=== PATIENT | female | born 2000 | race African-American/Black ===

== ENCOUNTER 2024-04-30 10:23 | Outpatient (OUT) | payer MEDICAID, SELFPAY ==
--- NOTE | 2024-04-30 | US_ITS ---
[address] [address] Patient Name: NETO SCHAEFFER MRN: [id number] date: 2000 Sex: F Assigned Patient Location: [facility] Current Patient Location: Accession/Order Number: [id number] Exam Date: 04/30/2024 10:27 Report Date: 05/01/2024 05:22 At the request of: ROXANNA SMITH Procedure: US OB transvaginal EXAMINATION: US OB transvaginal HISTORY: MISSED MENSES COMPARISON: No relevant comparison available. FINDINGS: GESTATIONAL SAC: Present and normal appearing. YOLK SAC: Present and normal appearing. POLE: Present and normal appearing. CARDIAC: Present. UTERUS: Normal size and appearance. OVARIES: Right: Corpus lutein cyst. Left: Normal. CERVIX: 3.9 cm in length and closed. CUL-DE-SAC: Normal. OTHER: None. AGE BY LMP: 9 weeks 3 days DELLA BY LMP: 11/30/2024 AGE BY US CRL: 6 weeks 3 days DELLA BY US CRL: 12/21/2024 US/US OB transvaginal IMPRESSION: 1. Single live intrauterine . Electronically authenticated by: JACKIE ARCINIEGA Date: 05/01/2024 05:22
== END 2024-04-30 10:24 | disposition home or self-care (01) ==
LOC: NOMS 10:23
PROVIDERS: Visit Provider Obstetrics & Gynecology
DX: Z34.91 Encounter for supervision of normal pregnancy, unspecified, first trimester (principal); Z3A.09 9 weeks gestation of pregnancy; N92.6 Irregular menstruation, unspecified
CPT/HCPCS: 76817

== ENCOUNTER 2024-07-02 11:20 | Outpatient (OUT) | payer MEDICAID, SELFPAY ==
--- OUTSIDE RECORDS SUMMARY | 2024-07-02 11:45 | XMS_ITS | CCD ---
Author Organization [facility] Care Team Providers Care Shipping Specialist Name Role Phone ENRICO SERRANO Admitting Unavailable KARASIK, ENRICO Attending Unavailable REQUEST, NONE LISTED Primary Care Unavailable KARASIK, ENRICO Consulting Unavailable JULIAN GARCES Consulting Unavailable KARASIK, ENRICO Admitting Unavailable KARASIK, ENRICO Attending Unavailable KARASIK, ENRICO Consulting Unavailable PA, ROXANNA Admitting Unavailable PA, ROXANNA Attending Unavailable PA, ROXANNA Consulting Unavailable KARASIK, ENRICO Admitting Unavailable KARASIK, ENRICO Attending Unavailable KARASIK, ENRICO Consulting Unavailable KARASIK, ENRICO Admitting Unavailable KARASIK, ENRICO Attending Unavailable PA, ROXANNA Admitting Unavailable PA, ROXANNA Attending Unavailable PA, ROXANNA Consulting Unavailable DAXA REYNA Consulting Unavailable OSVALDO, OSMANI Wall Consulting Unavailable PA, ROXANNA Procedure Practitioner Unavailab le OSVALDO, OSMANI L Procedure Practitioner Unavailab DIANNE Aguayo Consulting Unavailable Unavailable Primary Care Provider Unavailabl e PA, ROXANNA Attending Unavailable PA, ROXANNA R Referring Unavailable NO PCP, NO PCP Primary Care Unavailable PA, ROXANNA R Referring Unavailable NO PCP, NO PCP Primary Care Unavailable Medications Current Medications Medication Drug Class(es) Dates Sig (Normalized) Sig (Original) Vit w/Zf-Xhkexoevj-HR (PNV PO) (5 sources) Vit w/Vr-Nibaebbmp-ZP (PNV PO) Take by mouth Active Problems Active Problems Problem Classification Problem Date Documented Date Episodic/Chronic Immunizations and screening for infectious disease (1 source) Encounter for screening for infections with a predominantly sexual mode of transmission; Translations: [ENC SCREEN INFECTIONS SEXL TRANSMS] Onset: 03-21-2019 Episodic Menstrual disorders (2 sources) Missed period; Translations: [Irregular menstruation, unspecified] Onset: 05-01-2024 04-30-2024 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 source) Second degree perineal laceration during delivery; Translations: [SECOND DEG PERINEAL LAC DUR DELIV] Onset: 04-17-2019 Episodic Other complications of ; puerperium affecting management of mother (1 source) Labor and delivery complicated by meconium in amniotic fluid; Translations: [LABOR AND DEL COMP MEC AMNIOTIC FLUID] Onset: 04-17-2019 Episodic Other complications of (2 sources) Supervision of young primigravida, third trimester; Translations: [SUP YOUNG PRIMIGRAVIDA THIRD TRI] Onset: 04-09-2019 Episodic Other and delivery including normal (12 sources) Encounter for supervision of normal , unspecified, second trimester; Translations: [Single live ] Onset: 12-19-2018 04-30-2024 Episodic Other screening for suspected conditions (not mental disorders or infectious disease) (5 sources) Encounter for screening, unspecified; Translations: [Encounter for screening for Streptococcus B] Onset: 12-28-2018 Residual codes; unclassified (1 source) Gestation period, 6 weeks; Translations: [Less than 8 weeks gestation of ] 04-30-2024 Episodic Residual codes; unclassified (4 sources) Gestation period, 10 weeks; Translations: [10 weeks gestation of ] Onset: 05-31-2024 05-31-2024 Episodic Residual codes; unclassified (1 source) 39 weeks gestation of ; Translations: [39 WEEKS GESTATION OF ] Onset: 04-17-2019 Unclassified (3 sources) OB Reminders Onset: 05-01-2024 05-01-2024 Past or Other Problems Problem Classification Problem Date Documented Da te Episodic/Chronic Other complications of (4 sources) Supervision of high risk , unspecified, first trimester; Translations: [SUP HIGH RISK UNS 1ST TRI] Onset: 12-20-2018 Episodic Other complications of (4 sources) Supervision of other high risk pregnancies, unspecified trimester; Translations: [SUP OTH HIGH RISK UNS TRI] Onset: 12-21-2018 Episodic Results Test Name Value Interpretation Reference Range Facility Urinalysis macro (dipstick) panel (U)on 05-31-2024 Bilirubin, UA Negative Negative - 4(70) +++ mg/dL [facility] Blood, UA Negative Negative - 50 Balbir/mcL [facility] Clarity, UA Clear [facility] Health[facility] re Color, UA Yellow [facility] Glucose, UA Positive Negative - 1999(110) ++++ mg/dL [facility] Comment on above: 100 Interpretation and review of laboratory results Abnormal [facility] Ketones, UA Negative Negative - 160(16) ++++ mg/dL [facility] Leukocytes, UA Negative Negative - 500+++ Osbaldo/mcL [facility] Nitrite, UA Negative Negative - Positive [facility] pH, UA 7 5 - 9 [facility] Protein, UA Negative Negative - 1999(20) ++++ mg/dL [facility] Spec Grav, UA 1.015 1 - 1.03 [facility] Urobilinogen, UA 0.2 0.2 - 12 mg/dL [facility] CBC AND AUTO DIFFon 05-01-20 24 ABSOLUTE BASOPHIL 0.0 X10E9/L Normal 0.0-0.2 [facility] Comment on above: Performed By: #### C ALIDA, HA1C, 8014-3, 91831-3, 77870-9, 03549-5, 5196-1 #### [facility] ([id number]) [address], [address] [place] [address] ABSOLUTE NEUTROPHIL 4.8 X10E9/L Normal 1.5-6.6 [facility] Comment on above: Performed By: #### C ALIDA, HA1C, 8014-3, 90155-4, 28461-2, 86083-9, 5196-1 #### [facility] ([id number]) [address], [address] [place] [address] Basophils/100 WBC (Bld) 0.4 % Normal [facility] Comment on above: Performed By: #### C ALIDA, HA1C, 8014-3, 31647-3, 14908-6, 37886-2, 5196-1 #### [facility] ([id number]) [address], [address] [place] [address] Eosinophils (Bld) [#/Vol] 0.1 10*3/uL Normal 0.0-0.4 [facility] Comment on above: Performed By: #### C ALIDA, HA1C, 8014-3, 10306-9, 07820-2, 11292-3, 5196-1 #### [facility] ([id number]) [address] [address] [place] [address] Eosinophils/100 WBC (Bld) 1.2 % Normal [facility] Comment on above: Performed By: #### C ALIDA, JENNIFER1C, 8014-3, 06324-6, 22726-2, 42289-2, 5196-1 #### [facility] ([id number]) [address] [address] Erythrocyte distribution width (RBC) [Ratio] 14.1 % Normal 11.5-15.0 [facility] Comment on above: Performed By: #### C ALIDA, HA1C, 8014-3, 48576-0, 29641-7, 60848-9, 5196-1 #### [facility] ([id number]) [address] [address] Hematocrit (Bld) [Volume fraction] 37.2 % Normal 35-47 [facility] Comment on above: Performed By: #### C ALIDA, HA1C, 8014-3, 74021-8, 84469-9, 16981-8, 5196-1 #### [facility] ([id number]) [address] [address] [place] [address] Hemoglobin (Bld) [Mass/Vol] 12.6 g/dL Normal 11.7-15.5 [facility] Comment on above: Performed By: #### C ALIDA, HA1C, 8014-3, 15249-2, 92594-2, 92208-2, 5196-1 #### [facility] ([id number]) [address], [address] [place] [address] Lymphocytes (Bld) [#/Vol] 1.5 10*3/uL Normal 1.0-3.5 [facility] Comment on above: Performed By: #### C ALIDA, HA1C, 8014-3, 08402-8, 97164-4, 07887-1, 5196-1 #### [facility] ([id number]) [address], [address] [place] [address] Lymphocytes/100 WBC (Bld) 21.4 % Normal [facility] Comment on above: Performed By: #### C ALIDA, HA1C, 8014-3, 51429-4, 72876-2, 78859-0, 5196-1 #### [facility] ([id number]) [address], [address] [place] [address] MCH (RBC) [Entitic mass] 30.2 pg Normal 27-34 [facility] Comment on above: Performed By: #### C ALIDA, HA1C, 8014-3, 63547-0, 86285-9, 69495-2, 5196-1 #### [facility] ([id number]) [address], [address] [place] [address] MCHC (RBC) [Mass/Vol] 33.9 g/dL Normal 32-36 [facility] Comment on above: Performed By: #### Tatiana IRWIN, HA1C, 8014-3, 12919-3, 06452-9, 15814-3, 5196-1 #### [facility] ([id number]) [address], [address] [place] [address] MCV (RBC) [Entitic vol] 89 fL Normal 80-100 [facility] Comment on above: Performed By: #### Tatiana IRWIN, HA1C, 8014-3, 86960-5, 37687-4, 21721-3, 5196-1 #### [facility] ([id number]) [address], [address] [place] [address] Monocytes (Bld) [#/Vol] 0.6 10*3/uL Normal 0-0.9 [facility] Comment on above: Performed By: #### C ALIDA, HA1C, 8014-3, 84545-3, 97671-7, 20725-2, 5196-1 #### [facility] ([id number]) [address], [address] [place] [address] Monocytes/100 WBC (Bld) 8.7 % Normal [facility] Comment on above: Performed By: #### C ALIDA, HA1C, 8014-3, 78625-7, 67761-0, 08054-3, 5196-1 #### [facility] ([id number]) [address], [address] [place] [address] Neutrophils/100 WBC (Bld) 68.3 % Normal [facility] Comment on above: Performed By: #### Tatiana IRWIN, HA1C, 8014-3, 67088-7, 22015-5, 89396-4, 5196-1 #### [facility] ([id number]) [address] [place] [address] Platelet mean volume (Bld) [Entitic vol] 7.8 fL Normal 7-12 [facility] Comment on above: Performed By: #### Tatiana IRWIN, HA1C, 8014-3, 20701-1, 13235-7, 62279-1, 5196-1 #### [facility] ([id number]) [address], [address] [place] [address] Platelets (Bld) [#/Vol] 279 10*3/uL Normal 150-450 [facility] Comment on above: Performed By: #### Tatiana IRWIN, HA1C, 8014-3, 48422-0, 31545-5, 82778-3, 5196-1 #### [facility] ([id number]) [address], [address] [place] [address] RBC COUNT 4.17 X10E12/L Normal 3.80-5.20 [facility] Comment on above: Performed By: #### C ALIDA, JENNIFER1C, 8014-3, 80878-6, 24351-3, 58404-9, 5196-1 #### [facility] ([id number]) [address], [address] [place] [address] WBC (Bld) [#/Vol] 7.0 10*3/uL Normal 4.0-11.0 [facility] Comment on above: Performed By: #### C ALIDA, JENNIFER1C, 8014-3, 36809-9, 23486-1, 74696-2, 5196-1 #### [facility] ([id number]) [address] [place] [address] CBC W Auto Differential pane l (Bld)on 05-01-2024 ABSOLUTE BASOPHIL 0 [facility] Comment on above: PERFORMED AT [facility] [address] [facility] [address],[place] [address] Basophils/100 WBC (Bld) 0.4 % [facility] Eosinophils (Bld) [#/Vol] 0.1 10*3/uL [facility] Eosinophils/100 WBC (Bld) 1.2 % [facility] Erythrocyte distribution width (RBC) [Ratio] 14.1 % 11.5 - 15.0 % [facility] Hematocrit (Bld) [Volume fraction] 37.2 % 35 - 47 % [facility] Hem[facility] (Bld) [Mass/Vol] 12.6 g/dL 11.7 - 15.5 g/dL [facility] Lymphocytes (Bld) [#/Vol] 1.5 10*3/uL [facility] Lymphocytes/100 WBC (Bld) 21.4 % [facility] MCH (RBC) [Entitic mass] 30.2 pg 27 - 34 pg [facility] MCHC (RBC) [Mass/Vol] 33.9 g/dL 32 - 36 g/dL [facility] MCV (RBC) [Entitic vol] 89 fL 80 - 100 fL [facility] Monocytes (Bld) [#/Vol] 0.6 10*3/uL [facility] Monocytes/100 WBC (Bld) 8.7 % [facility] Neutrophils (Bld) [#/Vol] 4.8 10*3/uL [facility] Neutrophils/100 WBC (Bld) 68.3 % [facility] Platelet mean volume (Bld) [Entitic vol] 7.8 fL 7 - 12 fL [facility] Platelets (Bld) [#/Vol] 279 10*3/uL [facility] RBC (Bld) [#/Vol] 4.17 10*6/uL [facility] WBC corrected for nucl RBC Auto (Bld) [#/Vol] 7 [facility] DRUG SCREEN, URINEon 024 AMPHETAMINE/METHAMP Negative Normal NEG [facility] Comment on above: Result Comment: AMPH /METH screening cut off = 1000 ng/mL Performed By: #### D SAMANIEGO #### [facility] ([id number]) [address], [address] [place] [address] BARBITURATES Negative Normal NEG [facility] Comment on above: Result Comment: Jenniffer iturates screening cut off value = 200 ng/mL Performed By: #### D SAMANIEGO #### [facility] ([id number]) [address], [address] [place] [address] BENZODIAZEPINES Negative Normal NEG [facility] Comment on above: Result Comment: Roberto odiazepines screening cut off value = 200 ng/mL Performed By: #### D SAMANIEGO #### [facility] ([id number]) [address], [address] [place] [address] CANNABINOIDS Positive Abnormal NEG [facility] Comment on above: Result Comment: Conf irmation available upon request. Cannabinoids/THC screening cut off value = 50 ng/mL Performed By: #### D SAMANIEGO #### [facility] ([id number]) [address], [address] [place] [address] COCAINE METABOLITE Negative Normal NEG [facility] Comment on above: Result Comment: Coca ine screening cut off value = 300 ng/mL Performed By: #### D SAMANIEGO #### [facility] ([id number]) [address] [place] [address] ECSTASY Negative Normal NEG [facility] Comment on above: Result Comment: Ecst asy screening cut off value = 500 ng/mL This report is intended for use in clinical monitoring or management of patients. Performed By: #### D SAMANIEGO #### [facility] ([id number]) [address] [place] [address] METHADONE Negative Normal NEG [facility] Comment on above: Result Comment: Meth adone screening cut off value = 300 ng/mL. Performed By: #### D SAMANIEGO #### [facility] ([id number]) [address] [place] [address] OPIATES Negative Normal NEG [facility] Comment on above: Result Comment: Opia wyatt screening cut off value = 300 ng/mL NOTE: This test is used for the detection of codeine, hydrocodone (>1000 ng/mL), morphine and hydromorphone (>900 ng/mL) in urine. Performed By: #### D SAMANIEGO #### [facility] ([id number]) [address] [place] [address] OXYCODONE Negative Normal NEG [facility] Comment on above: Result Comment: Oxyc odone screening cut off value = 300 ng/mL NOTE: This test is used for the detection of oxycodone and oxymorphone in urine. Performed By: #### D SAMANIEGO #### [facility] ([id number]) [address] [place] [address] PHENCYCLIDINE Negative Normal NEG [facility] Comment on above: Result Comment: Phen cyclidine screening cut off value = 25 ng/mL Performed By: #### D SAMANIEGO #### [facility] ([id number]) [address] [facility], [address] [place] [address] HBV surface Ag IA Qlon 05-01 HEPATITIS B SURF AG Non-Reactive Normal NRCT Pro [facility] Comment on above: Performed By: #### C TAE IRWIN, 8014-3, 83644-9, 98313-1, 10953-5, 5196-1 #### [facility] ([id number]) [address] [facility], [address] [place] [address] HCV Ab IA on 05-01-2024 ANTI HCV W/PCR REFLX Non-Reactive Normal NRCT [facility] Comment on above: Result Comment: NOTE If recent infection suspected, recommend repeat testing (>2 months). Vlmesg-mm-qchpwj ratio is <1.00. Performed By: #### C JENNIFER IRWIN1C, 8014-3, 92800-4, 20314-9, 38577-5, 5196-1 #### [facility] ([id number]) [facility] [facility] [place] [address] HGB A1C (GLYCO-HGB)on 2023 Glucose [Mass/Vol] 105 mg/dL Normal [facility] Comment on above: Performed By: #### C TAE IRWIN, 8014-3, 94309-1, 25864-3, 93338-0, 5196-1 #### [facility] ([id number]) [address] [place] [address], [address] [place] [address] HbA1c (Bld) [Mass fraction] 5.3 % Normal 4.4-5.6 [facility] Comment on above: Result Comment: NOTE ADA Guidelines Result HgbA1c Normal : less than 5.7 % Prediabetes : 5.7 % to 6.4 % Diabetes : > 6.4 % Use with caution in patients with abnormal hemoglobin variants as the half-life of red blood cells and in vivo glycation rates are affected. Performed By: #### C TAE IRWIN, 8014-3, 48795-3, 49050-9, 50893-2, 5196-1 #### [facility] ([id number]) [address] [place] [address], [address] [address] HIV 1+2 Ab+HIV1 p24 Ag IA Ql on 05-01-2024 HIV 1 and 2 Ab/Ag Screen Non-Reactive Normal NRCT [facility] Comment on above: Result Comment: NOTE This information has been disclosed to you from confidential records protected from disclosure by state law. You shall make no further disclosure of this information without the specific, written and informed release of the individual to whom it pertains, or as otherwise permitted by state law. A general authorization for the release of medical or other information is not sufficient for the purpose of the release of HIV test results or diagnoses. Performed By: #### C ALIDA, TAE, 8014-3, 84449-7, 74538-9, 73657-5, 5196-1 #### [facility] ([id number]) [address] [place] [address], [address] [address] Rubella virus IgG Qn (S)on 1 07-02-2023 RUBELLA IgG 55 IU/mL Normal [facility] Comment on above: Result Comment: Interpretation-------- <8 NEGATIVE-considered Not Immune 8-9 EQUIVOCAL-consider retesting with new specimen >9 POSITIVE-considered Immune Performed By: #### C ALIDA, JENNIFER1C, 8014-3, 96998-0, 72337-6, 46461-4, 5196-1 #### [facility] ([id number]) [address] [place] [address], [facility] [address] [place] [address] T. pallidum IgG+IgM IA Ql (S )on 05-01-2024 Syphilis Total <0.2 Normal 0.0-0.8 [facility] Comment on above: Result Comment: NON REACTIVE No serologic evidence of infection to Treponema pallidum (syphilis). Repeat testing may be considered in patients with suspected acute or primary syphilis in 2 to 4 weeks. Performed By: #### C BCA, HA1C, 8014-3, 76876-0, 20175-2, 36765-6, 5196-1 #### [facility] ([id number]) [address] [place] [address] URINE CULTUREon 05-01-2024 Bacteria identified Cx Nom (U) CULTURE RESULTS 10-50,000 ORGANISMS/mL NORMAL UROGENITAL KATY Normal [facility] Comment on above: Performed By: #### 6 30-4 #### [facility] ([id number]) [address] [place] [address] HCG ( test) Ql (U)o n 04-30-2024 Interpretation and review of laboratory results Abnormal [facility] Preg Test, Ur Positive Negative [facility] Health care [facility] Urinalysis macro (dipstick) panel (U)on 04-30-2024 Bilirubin, UA Negative Negative - 4(70) +++ mg/dL [facility] Blood, UA Negative Negative - 50 Balbir/mcL [facility] Clarity, UA Clear [facility] Color, UA Yellow [facility] Glucose, UA Negative Negative - 1999(110) ++++ mg/dL [facility] Interpretation and review of laboratory results Abnormal [facility] Ketones, UA Positive Negative - 160(16) ++++ mg/dL [facility] Comment on above: 30 Leukocytes, UA Negative Negative - 500+++ Osbaldo/mcL [facility] Nitrite, UA Negative Negative - Positive [facility] pH, UA 6 5 - 9 [facility] Protein, UA Negative Negative - 1999(20) ++++ mg/dL [facility] Spec Grav, UA 1.02 1 - 1.03 [facility] Health care Urobilinogen, UA 0.2 0.2 - 12 mg/dL [facility] CBC AUTO DIFFon 04-11-2019 Basophils (Bld) [#/Vol] 0.0 103/ul Normal 0.0-0.1 [facility] Comment on above: Performed By: #### C BC #### [facility] [address] [place], [place] [address] Senia Margarita Basophils/100 WBC (Bld) 0.3 % Normal 0.2-2.0 [facility] Comment on above: Performed By: #### C BC #### [facility] [address] [place], [place] [address] Senia Margarita Eosinophils (Bld) [#/Vol] 0.1 103/ul Normal 0.0-0.7 [facility] Comment on above: Performed By: #### C BC #### [facility] [address] [place], [place] [address] Senia Margarita Eosinophils/100 WBC (Bld) 0.8 % Critically low 0.9-7.0 [facility] Comment on above: Performed By: #### C BC #### [facility] [address] [place], [place] [address] Senia Margarita Erythrocyte distribution width (RBC) [Ratio] 13.3 % Normal 11.0-15.0 [facility] Comment on above: Performed By: #### C BC #### [facility] [address] [place] [address] Senia Margarita Hematocrit (Bld) [Volume fraction] 27.9 % Critically low 36.0-48.0 [facility] Comment on above: Performed By: #### C BC #### [facility] [address] [place] [address] Senia Margarita Hemoglobin (Bld) [Mass/Vol] 9.5 g/dL Critically low 12.0-16.0 [facility] Comment on above: Result Comment: post Performed By: #### C BC #### [facility] [address] [place] [address] Senia Margarita IG # 0.15 10e3/ul Critically high 0.00-0.03 [facility] Comment on above: Performed By: #### C BC #### [facility] [address] [place], [place] [address] Senia Margarita IG % 1.1 % Critically high 0.0-0.5 [facility] Comment on above: Performed By: #### C BC #### [facility] [address] [place], [place] [address] Senia Margarita Lymphocytes (Bld) [#/Vol] 1.6 103/ul Normal 1.2-3.8 [facility] Comment on above: Performed By: #### C BC #### [facility] [address] [place], [place] [address] Senia Margarita Lymphocytes/100 WBC (Bld) 11.8 % Critically low 20.5-60.0 [facility] Comment on above: Performed By: #### C BC #### [facility] [address] [place], [place] [address] Senia Margarita MANUAL DIFF REQ NO Normal [facility] Comment on above: Performed By: #### C BC #### [facility] [address] [place] [address] Senia Margarita MCH (RBC) [Entitic mass] 30.4 pg Normal 26.7-34.0 [facility] Comment on above: Performed By: #### C BC #### [facility] [address] [place] [address] Senia Margarita MCHC (RBC) [Mass/Vol] 34.1 g/dL Normal 29.9-35.2 [facility] Comment on above: Performed By: #### C BC #### [facility] [address] [place], [place] [address] Senia Margarita MCV (RBC) [Entitic vol] 89.4 fL Normal 79.1-95.6 [facility] Comment on above: Performed By: #### C BC #### [facility] [facility] [address] [place], [place] [address] Senia Margarita Monocytes (Bld) [#/Vol] 1.4 103/ul Critically high 0.3-0.8 [facility] Comment on above: Performed By: #### C BC #### [facility] [address] [place], [place] [address] Senia Margarita Monocytes/100 WBC (Bld) 10.2 % Normal 1.7-12.0 [facility] Comment on above: Performed By: #### C BC #### [facility] [address] [place] [address] Senia Margarita Neutrophils (Bld) [#/Vol] 10.2 103/ul Critically high 1.4-6.5 [facility] Comment on above: Performed By: #### C BC #### [facility] [address] [place], [place] [address] Senia Margarita Neutrophils/100 WBC (Bld) 75.8 % Critically high 43.0-75.0 [facility] Comment on above: Performed By: #### C BC #### [facility] [address] [place], [place] [address] Senia Margarita Platelet mean volume (Bld) [Entitic vol] 9.1 fL Critically low 9.5-13.5 [facility] Comment on above: Performed By: #### C BC #### [facility] [address] [place], [place] [address] Senia Margarita Platelets (Bld) [#/Vol] 150 103/ul Normal 150-450 [facility] Comment on above: Performed By: #### C BC #### [facility] [address] [place], [place] [address] Senia Margarita RBC (Bld) [#/Vol] 3.12 106/ul Critically low 3.40-5.30 [facility] Comment on above: Performed By: #### C BC #### [facility] [address] [place], [place] [address] Senia Margarita WBC (Bld) [#/Vol] 13.5 103/ul Critically high 4.0-11.0 [facility] Comment on above: Performed By: #### C BC #### [facility] [address] [place], [place] [address] Senia Margarita CBC AUTO DIFFon 04-09-2019 Basophils (Bld) [#/Vol] 0.0 103/ul Normal 0.0-0.1 [facility] Comment on above: Performed By: #### C BC #### [facility] [address] [place], [place] [address] Senia Margarita Basophils/100 WBC (Bld) 0.3 % Normal 0.2-2.0 [facility] Comment on above: Performed By: #### C BC #### [facility] [address] [place], [place] [address] Senia Margarita Eosinophils (Bld) [#/Vol] 0.0 103/ul Normal 0.0-0.7 [facility] Comment on above: Performed By: #### C BC #### [facility] [address] [place] [address] Senia Margarita Eosinophils/100 WBC (Bld) 0.3 % Critically low 0.9-7.0 [facility] Comment on above: Performed By: #### C BC #### [facility] [address] [place] [address] Senia Margarita Erythrocyte distribution width (RBC) [Ratio] 13.3 % Normal 11.0-15.0 [facility] Comment on above: Performed By: #### C BC #### [facility] [address] [place] [address] Senia Margarita Hematocrit (Bld) [Volume fraction] 41.1 % Normal 36.0-48.0 [facility] Comment on above: Performed By: #### C BC #### [facility] [address] [place], [place] [address] Senia Margarita Hemoglobin (Bld) [Mass/Vol] 14.3 g/dL Normal 12.0-16.0 [facility] Comment on above: Performed By: #### C BC #### [facility] [address] [place] [address] Senia Margarita IG # 0.12 10e3/ul Critically high 0.00-0.03 [facility] Comment on above: Performed By: #### C BC #### [facility] [address] [place], [place] [address] Senia Margarita IG % 1.0 % Critically high 0.0-0.5 [facility] Comment on above: Performed By: #### C BC #### [facility] [address] [place], [place] [address] Senia Margarita Lymphocytes (Bld) [#/Vol] 1.0 103/ul Critically low 1.2-3.8 [facility] Comment on above: Performed By: #### C BC #### [facility] [address] [place] [address] Senia Margarita Lymphocytes/100 WBC (Bld) 7.8 % Critically low 20.5-60.0 [facility] Comment on above: Performed By: #### C BC #### [facility] [address] [place] [address] Senia Margarita MANUAL DIFF REQ NO Normal [facility] Comment on above: Performed By: #### C BC #### [facility] [address] [place], [place] [address] Senia Margarita MCH (RBC) [Entitic mass] 30.9 pg Normal 26.7-34.0 [facility] Comment on above: Performed By: #### C BC #### [facility] [address] [place] [address] Senia Margarita MCHC (RBC) [Mass/Vol] 34.8 g/dL Normal 29.9-35.2 [facility] Comment on above: Performed By: #### C BC #### [facility] [address] [place] [address] Senia Margarita MCV (RBC) [Entitic vol] 88.8 fL Normal 79.1-95.6 [facility] Comment on above: Performed By: #### C BC #### [facility] [address] [place] [address] Senia Margarita Monocytes (Bld) [#/Vol] 1.1 103/ul Critically high 0.3-0.8 [facility] Comment on above: Performed By: #### C BC #### [facility] [address] [place], [place] [address] Senia Margarita Monocytes/100 WBC (Bld) 9.1 % Normal 1.7-12.0 [facility] Comment on above: Performed By: #### C BC #### [facility] [address] [place], [place] [address] Senia Margarita Neutrophils (Bld) [#/Vol] 10.2 103/ul Critically high 1.4-6.5 [facility] Comment on above: Performed By: #### C BC #### [facility] [address] [place], [place] [address] Senia Margarita Neutrophils/100 WBC (Bld) 81.5 % Critically high 43.0-75.0 [facility] Comment on above: Performed By: #### C BC #### [facility] [address] [place], [place] [address] Senia Margarita Platelet mean volume (Bld) [Entitic vol] 9.4 fL Critically low 9.5-13.5 [facility] Comment on above: Performed By: #### C BC #### [facility] [address] [place], [place] [address] Senia Margarita Platelets (Bld) [#/Vol] 223 103/ul Normal 150-450 [facility] Comment on above: Performed By: #### C BC #### [facility] [address] [place], [place] [address] Senia Margarita RBC (Bld) [#/Vol] 4.63 106/ul Normal 3.40-5.30 [facility] Comment on above: Performed By: #### C BC #### [facility] [address] [place], [place] [address] Senia Margarita WBC (Bld) [#/Vol] 12.5 103/ul Critically high 4.0-11.0 [facility] Comment on above: Performed By: #### C BC #### [facility] [address] [place], [place] [address] Seniaamilcar Avila DRUG SCREEN RAPID (URINE)on 04-09-2019 AMP Negative Normal NEGATIVE [facility] Comment on above: Performed By: #### C BC #### [facility] [address] [place], [place] [address] Senia Margarita BAR Negative Normal NEGATIVE [facility] Comment on above: Performed By: #### C BC #### [facility] [address] [place], [place] [address] Senia Margarita BUP Negative Normal NEGATIVE [facility] Comment on above: Performed By: #### C BC #### [facility] [address] [place] [address] Senia Margarita BZO Negative Normal NEGATIVE [facility] Comment on above: Performed By: #### C BC #### [facility] [address] [place] [address] Senia Margarita DOMINGA Negative Normal NEGATIVE [facility] Comment on above: Performed By: #### C BC #### [facility] [address] [place] [address] Senia Margarita CUT-OFFS SEE BELOW Normal [facility] Comment on above: Result Comment: AMP (Amphetamine): 500ng/mL, BAR (Barbituates): 200 ng/mL, BZO (Benzodiazepines): 150 ng/mL, BUP (Buprenorphine): 10 ng/mL, DOMINGA (Cocaine): 150 ng/mL, mAMP (Methamphetamine): 500 ng/mL, MTD (Methadone): 200 ng/mL, OPI (Opiates): 100 ng/mL or 2000 ng/mL, OXY (Oxycodone): 100 ng/mL, PCP (Phencyclidine): 25 ng/mL, PPX (Propoxyphene): 300 ng/mL, THC (Cannabinoids): 50 ng/mL, TCA (Trycyclic Antidepressants): 300 ng/mL Performed By: #### C BC #### [facility] [address] [place] [address] Senia Margarita DRUG CUT HEADER DRUG CLASS TEST SYSTEM CUT-OFF CONCENTRATIONS ARE FOLLOWS: Normal [facility] Comment on above: Performed By: #### C BC #### [facility] [address] [place] [address] Senia Margarita mAMP Negative Normal NEGATIVE [facility] Comment on above: Performed By: #### C BC #### [facility] [address] [place] [address] Senia Margarita MTD Negative Normal NEGATIVE [facility] Comment on above: Performed By: #### C BC #### [facility] [address] [place] [address] Senia Margarita OPI Negative Normal NEGATIVE [facility] Comment on above: Performed By: #### C BC #### [facility] [address] [place] [address] Senia Margarita OXY Negative Normal NEGATIVE [facility] Comment on above: Performed By: #### C BC #### [facility] [address] [place] [address] Senia Margarita PCP Negative Normal NEGATIVE [facility] Comment on above: Performed By: #### C BC #### [facility] [address] [place] [address] Senia Margarita PPX Negative Normal NEGATIVE [facility] Comment on above: Performed By: #### C BC #### [facility] [address] [place] [address] Senia Margarita TCA Negative Normal NEGATIVE [facility] Comment on above: Performed By: #### C BC #### [facility] [address] [place] [address] Senia Margarita THC Negative Normal NEGATIVE [facility] Comment on above: Performed By: #### C BC #### [facility] [address] [place] [address] Seniaamilcar Avila CHLAMYDIA/GONOCOCCUS CECIL (SW AB/URINE/PAPon 03-19-2019 Chlamydia trachomatis, CECIL Negative Normal Negative [facility] Comment on above: Performed By: #### C BC #### [facility] [address] [place] [address] Seniaamilcar Avila Neisseria gonorrhoeae, CECIL Negative Normal Negative [facility] Comment on above: Performed By: #### C BC #### [facility] [address] [place] [address] Senia Avila GROUP B STREP CULTUREon 02-21 S. agalactiae Ag Ql (Unsp spec) Culture Observations: NEGATIVE FOR GROUP B STREPTOCOCCUS Normal [facility] Comment on above: Performed By: #### C BC #### [facility] [address] [place] [address] Senia Avila RPR QUANTon 12-23-2018 Rapid Plasma Reagin, Quant Non Reactive Normal NonRea<1:1 [facility] Comment on above: Performed By: #### C BC #### [facility] [address] [place], [place] [address] Senia Margarita AFP MATERNAL FOR SPINA BIFID Aon 12-22-2018 AFP MoM 1.16 Normal [facility] Comment on above: Performed By: #### C BC #### [facility] [address] [place] [address] Senia Margarita AFP Value 115.2 ng/mL Normal [facility] Comment on above: Performed By: #### C BC #### [facility] [address] [place] [id number] Senia Margarita AFP, Serum for Spina Bifida Report Normal [facility] Comment on above: Performed By: #### C BC #### [facility] [address] [place] [address] Senia Margarita Comment Comment Normal [facility] Comment on above: Result Comment: Luis Palafox, Ph.D., [facility] Principal Genetics Tooling Manager . References: Available Upon Request. . Multiples Of Median Cutoffs For AFP Elevations Joe 2.5 Black 2.8 IDD 2.0 Twins 4.5 Abbreviation Definitions IDD - Insulin Dep Diabetes OSBR - Open Spina Bifida Risk . For further inquiries contact [employer] at [phone]. Performed By: #### C BC #### [facility] [address] [place] [id number] Senia Avila Gest Age Collection Date 23.7 weeks Normal [facility] Comment on above: Performed By: #### C BC #### [facility] [address] [place] [id number] Senia Margarita Gestat, Age Based on Ultrasound Normal [facility] Comment on above: Result Comment: 23.6 on 12/19/2018 Recalculations are not recommended when gestational dating by LMP and ultrasound are within 10 days. Performed By: #### C BC #### [facility] [address] [place] [id number] Senia Margarita Insulin Dep Diabetes No Normal [facility] Comment on above: Performed By: #### C BC #### [facility] [address] [place] [address] Senia Avila Interpretation Comment Normal [facility] Comment on above: Result Comment: Inte rpretation: Screen Negative . This result is screen negative for OSB. The AFP MoM calculated is based on the gestational age provided. MS-AFP can identify up to 80% of open neural tube defects. Closed neural tube defects and some open defects may not be detected by this test. This test does not screen for Down Syndrome or Trisomy 18. If screening for Down Syndrome or Trisomy 18 is desired, contact [employer] to discuss available options. The [employer] recommends amniocentesis be offered to women age 35 and older. Performed By: #### C BC #### [facility] [address] [place] [address] Senia Avila [age] Normal [facility] Comment on above: Performed By: #### C BC #### [facility] [address] [place] [address] Senia Avila Multiple Gestation No Normal [facility] Comment on above: Performed By: #### C BC #### [facility] [address] [place] [address] Senia Avila OSBR Risk 1 [place] [address] Normal [facility] Comment on above: Performed By: #### C BC #### [facility] [address] [place] [address] Senia Avila PDF . Normal [facility] Comment on above: Performed By: #### C BC #### [facility] [address] [place] [address] Senia Avila Race Black Normal [facility] Comment on above: Performed By: #### C BC #### [facility] [address] [place] [address] Senia Avila Test Results: Negative Normal [facility] Comment on above: Performed By: #### C BC #### [facility] [address] [place] [address] Senia Avila HEP B SURFACE ANTIGEN SCREEN on 12-21-2018 HBsAg Confirmation NEUTIN Normal [facility] Comment on above: Result Comment: Unab le to obtain a valid test result for the Hepatitis B Surface Antigen confirmatory assay. Please resubmit if clinically indicated. Performed By: #### C BC #### [facility] [address] [place] [address] Senia Avila HBsAg Screen Confirm. indicated Normal Negative [facility] Comment on above: Performed By: #### C BC #### [facility] [address] [place] [address] Senia Avila HBsAg Screen Negative Normal Negative [facility] Comment on above: Performed By: #### H BSANS #### [facility] [address] [place] [address] Senia Avila HEPATITIS C VIRUS AB W/ REFL EX QUANTon 12-21-2018 HCV AB <0.1 Normal 0.0-0.9 [facility] Comment on above: Performed By: #### H CVPCRR #### [facility] [address] [place] [address] Senia Avila Interpretation: Comment Normal [facility] Comment on above: Result Comment: Nega tive Not infected with HCV, unless recent infection is suspected or other evidence exists to indicate HCV infection. Performed By: #### H CVPCRR #### [facility] [address] [place] [address] Senia Avila HGB(ELECTP) FRACTION PROFILE on 12-21-2018 Hemoglobin (Bld) [Mass/Vol] 98.2 % Normal 96.4-98.8 [facility] Comment on above: Performed By: #### C BC #### [facility] [address] [place] [address] Senia Avila Hgb A2 1.8 % Normal 1.8-3.2 [facility] Comment on above: Performed By: #### C BC #### [facility] [address] [place] [address] Senia Avila Hgb C 0.0 % Normal 0.0 [facility] Comment on above: Performed By: #### C BC #### [facility] [address] [place] [address] Senia Avila Hgb F 0.0 % Normal 0.0-2.0 [facility] Comment on above: Performed By: #### C BC #### [facility] [address] [place] [address] Senia Avila Hgb S 0.0 % Normal 0.0 [facility] Comment on above: Performed By: #### C BC #### [facility] [address] [place] [address] Senia Avila Hgb Solubility Negative Normal Negative [facility] Comment on above: Performed By: #### C BC #### [facility] [address] [place] [address] Senia Avila Hgb Variant Normal [facility] Comment on above: Performed By: #### C BC #### [facility] [address] [place] [address] Senia Avila Interpretation Comment Normal [facility] Comment on above: Result Comment: Norm al adult hemoglobin present. Performed By: #### C BC #### [facility] [address] [place] [address] Senia Avila HIV 1 AND 2 WITH REFLEXon HIV Screen 4th Generation wRfx Non Reactive Normal Non Reactive [facility] Comment on above: Performed By: #### H IV12 #### [facility] [address] [place] [address] Senia Avila RPR QUANTon 12-21-2018 Rapid Plasma Reagin, Quant Non Reactive Normal NonRea<1:1 [facility] Comment on above: Performed By: #### R PRQ #### [facility] [address] [place] [address] Senia Avila RUBELLA AB IGGon 12-21-2018 Rubella Antibodies, IgG 8.30 index Normal Immune >0.99 [facility] Comment on above: Result Comment: Non- immune <0.90 Equivocal 0.90 - 0.99 Immune >0.99 Performed By: #### R UBIGG #### [facility] [address] [place] [address] Senia Avila CBC AUTO DIFFon 12-20-2018 Basophils (Bld) [#/Vol] 0.0 103/ul Normal 0.0-0.1 [facility] Comment on above: Performed By: #### C BC #### [facility] [address] [place], [place] [address] Senia Margarita Basophils/100 WBC (Bld) 0.2 % Normal 0.2-2.0 [facility] Comment on above: Performed By: #### C BC #### [facility] [address] [place], [place] [address] Senia Margarita Eosinophils (Bld) [#/Vol] 0.1 103/ul Normal 0.0-0.7 [facility] Comment on above: Performed By: #### C BC #### [facility] [address] [place] [address] Senia Margarita Eosinophils/100 WBC (Bld) 0.9 % Normal 0.9-7.0 [facility] Comment on above: Performed By: #### C BC #### [facility] [address] [place] [address] Senia Margarita Erythrocyte distribution width (RBC) [Ratio] 13.4 % Normal 11.0-15.0 [facility] Comment on above: Performed By: #### C BC #### [facility] [address] [place], [place] [address] Senia Margarita Hematocrit (Bld) [Volume fraction] 30.8 % Critically low 36.0-48.0 [facility] Comment on above: Performed By: #### C BC #### [facility] [address] [place], [place] [address] Senia Margarita Hemoglobin (Bld) [Mass/Vol] 10.5 g/dL Critically low 12.0-16.0 [facility] Comment on above: Performed By: #### C BC #### [facility] [address] [place] [address] Senia Margarita IG # 0.09 10e3/ul Critically high 0.00-0.03 [facility] Comment on above: Performed By: #### C BC #### [facility] [address] [place], [place] [address] Senia Margarita IG % 1.0 % Critically high 0.0-0.5 [facility] Comment on above: Performed By: #### C BC #### [facility] [address] [place], [place] [address] Senia Margarita Lymphocytes (Bld) [#/Vol] 0.8 103/ul Critically low 1.2-3.8 [facility] Comment on above: Performed By: #### C BC #### [facility] [address] [place], [place] [id number] Senia Margarita Lymphocytes/100 WBC (Bld) 9.4 % Critically low 20.5-60.0 [facility] Comment on above: Performed By: #### C BC #### [facility] [address] [place], [place] [id number] Senia Margarita MANUAL DIFF REQ NO Normal [facility] Comment on above: Performed By: #### C BC #### [facility] [address] [place] [address] Senia Margarita MCH (RBC) [Entitic mass] 30.7 pg Normal 26.7-34.0 [facility] Comment on above: Performed By: #### C BC #### [facility] [address] [place], [place] [id number] Senia Margarita MCHC (RBC) [Mass/Vol] 34.1 g/dL Normal 29.9-35.2 [facility] Comment on above: Performed By: #### C BC #### [facility] [address] [place], [place] [address] Senia Margarita MCV (RBC) [Entitic vol] 90.1 fL Normal 79.1-95.6 [facility] Comment on above: Performed By: #### C BC #### [facility] [address] [place], [place] [address] Senia Margarita Monocytes (Bld) [#/Vol] 0.6 103/ul Normal 0.3-0.8 [facility] Comment on above: Performed By: #### C BC #### [facility] [address] [place], [place] [address] Senia Margarita Monocytes/100 WBC (Bld) 6.2 % Normal 1.7-12.0 [facility] Comment on above: Performed By: #### C BC #### [facility] [address] [place], [place] [address] Senia Margarita Neutrophils (Bld) [#/Vol] 7.4 103/ul Critically high 1.4-6.5 [facility] Comment on above: Performed By: #### C BC #### [facility] [address] [place], [place] [address] Senia Margarita Neutrophils/100 WBC (Bld) 82.3 % Critically high 43.0-75.0 [facility] Comment on above: Performed By: #### C BC #### [facility] [address] [place] [address] Senia Margarita Platelet mean volume (Bld) [Entitic vol] 9.2 fL Critically low 9.5-13.5 [facility] Comment on above: Performed By: #### C BC #### [facility] [address] [place] [address] Senia Margarita Platelets (Bld) [#/Vol] 199 103/ul Normal 150-450 [facility] Comment on above: Performed By: #### C BC #### [facility] [address] [place] [address] Senia Margarita RBC (Bld) [#/Vol] 3.42 106/ul Normal 3.40-5.30 [facility] Comment on above: Performed By: #### C BC #### [facility] [address] [place] [address] Senia Margarita WBC (Bld) [#/Vol] 9.0 103/ul Normal 4.0-11.0 [facility] Comment on above: Performed By: #### C BC #### [facility] [address] [place], [place] [address] Senia Margarita CULTURE URINEon 12-20-2018 CULTURE URINE Culture Observations: Light growth of mixed genital katy.No potential pathogens seen. Normal [facility] Comment on above: Performed By: #### C BC #### [facility] [address] [place], [place] [address] Senia Avila GLUCOSE - 1HRon 12-20-2018 Glucose [Mass/Vol] 106 mg/dL Normal 74-106 [facility] Comment on above: Performed By: #### G LU1HR #### [facility] [address] [address] Senia Avila JAMEY BOX TEST PT SEND OUTo n 12-20-2018 SENT TO REF LAB 12/20/2018 Normal [facility] Comment on above: Performed By: #### N BOX #### [facility] [address] [address] Senia Avila TYPE AND SCREENon 12-20-2018 TYPE AND SCREEN Negative Normal [facility] Comment on above: Performed By: #### T NS #### [facility] [address] [place], [place] [address] Senia Avila US PREG ANATOMY SINGLEon US PREG ANATOMY SINGLE Patient: SERA DIAZ Exam Date: 12/19/2018 : 2000 Gender:F Ordering : DR ENRICO SERRANO . Admission #: [id number] Family : Order #: [id number] CLICK HERE TO VIEW EXAM RADIOLOGY REPORT PROCEDURE: ULTRASOUND > 14 WEEKS COMPARISON: None. INDICATIONS: Urine test positive Z32.01; 23 weeks, 4 days TECHNIQUE: Transabdominal sonographic examination for obstetrical and evaluation. Transvaginal sonographic examination for obstetrical and evaluation. FINDINGS: FLUID / PLACENTA: Amniotic fluid volume: Subjectively normal for gestational age. Placental location: Posterior. No previa. Cervix Length: 4.8cm, closed Heart Rate: 152H.B./min Number: One ANATOMY: Normal structures: Cerebellum. Choroid plexus. Cisterna magna. Lateral cerebral ventricles. Orbits. Midline falx. Hard palate. 4-chamber heart. RVOT. LVOT. Stomach. Kidneys. Bladder. Umbilical cord insertion into abdomen. 3 vessel cord. Cervical spine. Thoracic spine. Lumbar spine. Sacral spine. Right upper extremity. Left upper extremity. Right lower extremity. Left lower extremity. Suboptimally seen: None. Abnormalities/Other: None. BIOMETRY: BPD: 5.78 cm 23 weeks, 4 days FL/AC: 0.24 1 HC: 21.40 cm 23 weeks, 3 days FL/BPD: 0.76 1 AC: 18.20 cm 23 weeks, 0 days HC/AC: 1.18 1 FL: 4.38 cm 24 weeks, 2 days EFW: 612 g 44% by AUA; GESTATIONAL AGE: Age by EDC: Unknown DELLA by EDC: N/A Age by current US: 23 weeks, 4 days DELLA by current US: 2019-04-13 *Reference: [facility] Practice Guideline for the performance of Obstetric Ultrasound Examinations, February 20, 2007. CONCLUSION: 1. Single live intrauterine . Dictated by: Julian Garces M.D. on 12/19/2018 at 15:28 Approved by: Julian Garces M.D. on 12/19/2018 at 15:48 Normal [facility] Vital Signs Date Time Vital Sign Value Performing Clinician Facility 05-31-2024 11:31-0500 Body mass index (BMI) [Ratio] 37.39 kg/m2 [employer] Work Phone: [facility] 05-31-2024 11:31-0500 Body weight 98.79 kg [employer] Work Phone: [facility] 05-31-2024 11:31-0500 Diastolic blood pressure 78 mm[Hg] [employer] Work Phone: [facility] 05-31-2024 11:31-0500 Systolic blood pressure 110 mm[Hg] [employer] Work Phone: [facility] 04-30-2024 11:22-0500 Body height 162.6 cm [facility] Nurse [facility] 04-30-2024 11:21-0500 Body mass index (BMI) [Ratio] 36.39 kg/m2 [facility] Nurse [facility] 04-30-2024 11:21-0500 Body weight 96.16 kg [facility] Nurse [facility] 04-30-2024 11:21-0500 Diastolic blood pressure 74 mm[Hg] [facility] Nurse [facility] 04-30-2024 11:21-0500 Systolic blood pressure 118 mm[Hg] [facility] Nurse [facility] 12-22-2018 14:07-0400 Body weight 67.5864 kg ENRICO SERRANO [facility] Comment on above: Performed By: #### CBC #### [facility] [address] [place], [place] [address] Senia Avila Encounters Encounter Date Encounter Type Care Provider Facility Start: 06-04-2024 End: 06-04-2024 ambulatory [facility] Start: 05-31-2024 End: 05-31-2024 Bamboo flowsheet Roxanna Pa DO Work Phone: [facility] Start: 05-31-2024 End: 05-31-2024 Bamboo flowsheet Roxanna Pa DO Work Phone: [facility] Start: 05-31-2024 End: 05-31-2024 ambulatory ROXANNA PA Not Available Start: 05-31-2024 End: 05-31-2024 Office outpatient visit 15 minutes Roxanna Pa DO Work Phone: [facility] Comment on above: 10 weeks gestation o f ; First trimester Start: 05-01-2024 End: 05-01-2024 External Result Encounter Roxanna Pa DO Work Phone: [facility] Unsolicited Start: 05-01-2024 End: 05-01-2024 External Result Encounter Roxanna Pa DO Work Phone: [facility] Unsolicited Start: 05-01-2024 End: 05-01-2024 ambulatory ROXANNA R PA [facility] Start: 04-30-2024 End: 04-30-2024 ambulatory [facility] Nurse [facility] Comment on above: GA: 6w3d Start: 04-14-2019 Evaluation and management of inpatient ENRICO SERRANO Facility:[facility] Start: 04-09-2019 End: 04-12-2019 Evaluation and management of inpatient ROXANNA PA Facility:[facility] Start: 03-15-2019 End: 03-15-2019 Patient encounter procedure ENRICO SERRANO Facility:[facility] Start: 12-21-2018 End: 12-22-2018 Patient encounter procedure ROXANNA PA Facility:[facility] Start: 12-20-2018 End: 12-21-2018 Patient encounter procedure ENRICO SERRANO Facility:[facility] Start: 12-19-2018 End: 12-20-2018 Patient encounter procedure ENRICO SERRANO Facility:[facility] Procedures Date Procedure Procedure Detail Performing Clinician Start: 05-31-2024 Urnls dip stick/tabl et rgnt non-auto w/o micrscp Roxanna Pa DO Work Phone: Start: 05-01-2024 Complete blood count with white cell differential, automated Roxanna Pa DO Work Phone: Start: 04-30-2024 End: 04-30-2024 Urnls dip stick/tablet rgnt non-auto w/o micrscp Roxanna Pa DO Work Phone: Start: 04-12-2019 Insertion of Contrac eptive Device into Left Upper Arm Subcutaneous Tissue and Fascia, Percutaneous Approach ENRICO SERRANO Start: 04-10-2019 Delivery of Products of Conception, External Approach ENRICO SERRANO Start: 04-10-2019 Division of Female Perineum, External Approach ENRICO SERRANO Start: 04-10-2019 Repair Perineum Musc le, Open Approach ENRICO SERRANO Plan of Treatment Date Care Activity Detail Author Start: 07-02-2024 End: 07-02-2024 Patient encounter procedure 07/02/2024 10:30 AM EST Routine [facility] [address] [place] [id number] Gloria Lloyd PA [address] [place] [address] [facility] Start: 05-31-2024 End: 05-31-2024 Patient encounter procedure 05/31/2024 10:50 AM EST Routine [facility] [address] [place] [id number] Roxanna Winn, DO [address] [place] [address] [facility] Start: 04-30-2024 End: 04-30-2025 ABO/Rh ABO/Rh Lab Routine Missed menses , unspecified gestational age Expected: 04/30/2024 (Approximate), Expires: 04/30/2025 [facility] Comment on above: Expected: 04/30/2024 (Approximate), Expires: 04/30/2025 Start: 04-30-2024 End: 04-30-2025 Blood type and Indirect antibody screen panel - Blood Type and screen Lab Routine Missed menses , unspecified gestational age Expected: 04/30/2024 (Approximate), Expires: 04/30/2025 [facility] Work Phone: Comment on above: Expected: 04/30/2024 (Approximate), Expires: 04/30/2025 Start: 04-30-2024 End: 04-30-2025 Drugs of abuse panel - Urine by Screen method Rapid drug screen, urine Lab Routine , unspecified gestational age Encounter for supervision of normal first in first trimester Expected: 04/30/2024 (Approximate), Expires: 04/30/2025 [facility] Comment on above: Expected: 04/30/2024 (Approximate), Expires: 04/30/2025 Start: 04-30-2024 End: 04-30-2025 US Pelvis transvaginal US OB transvaginal Imaging Routine Missed menses Expected: 04/30/2024 (Approximate), Expires: 04/30/2025 [facility] Comment on above: Expected: 04/30/2024 (Approximate), Expires: 04/30/2025 Bacteria identified in Urine by Culture Urine culture Microbiology Routine Missed menses Ordered: 04/30/2024 [facility] Comment on above: Ordered: 04/30/2024 CBC W Auto Different ial panel - Blood CBC and differential Lab Routine Missed menses , unspecified gestational age Ordered: 04/30/2024 [facility] Comment on above: Ordered: 04/30/2024 Hemoglobin A1c/Hemoglobin.total in Blood Hemoglobin A1c Lab Routine Missed menses , unspecified gestational age Ordered: 04/30/2024 [facility] Comment on above: Ordered: 04/30/2024 Hepatitis B virus surface Ag [Presence] in Serum or Plasma by Immunoassay Hepatitis B surface antigen Lab Routine Missed menses , unspecified gestational age Ordered: 04/30/2024 [facility] Comment on above: Ordered: 04/30/2024 Hepatitis C virus Ab [Presence] in Serum or Plasma by Immunoassay Hepatitis C antibody Lab Routine Missed menses , unspecified gestational age Ordered: 04/30/2024 [facility] Comment on above: Ordered: 04/30/2024 HIV-1/HIV-2 antigen/antibody combination immunoassay HIV-1 and HIV-2 antibodies Lab Routine Missed menses , unspecified gestational age Ordered: 04/30/2024 [facility] Comment on above: Ordered: 04/30/2024 Reagin Ab [Presence] in Serum by RPR RPR Lab Routine Missed menses , unspecified gestational age Ordered: 04/30/2024 [facility] Comment on above: Ordered: 04/30/2024 Rubella antibody, IgG Rubella an tibody, IgG Lab Routine Missed menses , unspecified gestational age Ordered: 04/30/2024 [facility] Comment on above: Ordered: 04/30/2024 Payers Date Payer Category Payer Medicaid [facility] [id number] 2023 Medicaid [id number] 2000 Unknown [id number] 2001 Unknown [id number] 2001 Unknown [id number] 2001 Unknown [id number] 1977 Unknown [id number] 1977 Unknown [id number] 1977 Unknown [id number] 1977 Unknown [id number] 1977 Unknown [id number] 1977 Unknown [id number] 1959 Unknown [id number] Social History Date Type Detail Facility Tobacco smoking stat [facility] Tobacco smoking consumption unknown [facility] Start: 03-30-2024 [facility] Start: 2000 Sex assigned at Not on file [facility] Gender identity Not on file [facility] are Goals Date Patient Goal Desired Activity /State Personal health goal History of Present illness Narrative 05-31-2024 Kristi Malave LPN - 05/31/2024 10:50 AM EST Note Date & Type Note Facility 05-31-2024 History of Presen t illness Narrative Reason for Appointment: Patient ID: Sera Diaz is a 23 y.o. female who presents for Routine Visit Patient presents today for Return OB appointment. MEDICATIONS Current Outpatient Medications Medication Instructions Vit w/Bm-Wtmyuwojt-SQ (PNV PO) Take by mouth ALLERGIES No Known Allergies PROBLEMS Active Ambulatory Problems Diagnosis Date Noted No Active Ambulatory Problems Resolved Ambulatory Problems Diagnosis Date Noted No Resolved Ambulatory Problems No Additional Past Medical History HISTORY PAST MEDICAL HISTORY SOCIAL HISTORY History reviewed. No pertinent past medical history. Social History Tobacco Use Smoking status: Not on file Smokeless tobacco: Not on file Substance Use Topics Alcohol use: Not on file Drug use: Not on file FAMILY HISTORY No family history on file. SURGICAL HISTORY History reviewed. No pertinent surgical history. REVIEW OF SYSTEMS Review of Systems: Review of Systems All other systems reviewed and are negative. OBJECTIVE Objective: Physical Exam Constitutional: Appearance: Normal appearance. She is well-developed. Cardiovascular: Rate and Rhythm: Normal rate and regular rhythm. Pulmonary: Effort: Pulmonary effort is normal. Breath sounds: Normal breath sounds. Abdominal: General: Bowel sounds are normal. There is no distension. Palpations: Abdomen is soft. Tenderness: There is no abdominal tenderness. There is no guarding or rebound. Musculoskeletal: General: No swelling. Normal range of motion. Right lower leg: No edema. Left lower leg: No edema. Neurological: Mental Status: She is alert and oriented to person, place, and time. Skin: General: Skin is warm and dry. Psychiatric: Mood and Affect: Mood normal. Behavior: Behavior normal. Vitals and nursing note reviewed. Exam conducted with a nematology teacher present. Vitals: Estimated body mass index is 37.39 kg/m as calculated from the following: Height as of 24: 5' 4 . Weight as of this encounter: 217 lb 12.8 oz. BP: 110/78 Patient's last menstrual period was 02/24/2024. ASSESSMENT & PLAN ICD-10-CM 1. 10 weeks gestation of Z3A.10 POCT urinalysis dipstick manually resulted 2. First trimester Z34.91 POCT urinalysis dipstick manually resulted New OB: Patient presents today for 1st time obstetrics appointment with provider. Patient is currently 10w6d . Patients history has been reviewed in great detail including any potential risks. Patient stated she currently has no complaints. Expectations throughout regarding labs, ultrasounds, and appointments have been discussed with the patient in detail. It was reiterated that the patient is to drink 6-8 glasses of water a day, eat 6 small meals a day, do not consume raw or undercooked meat, and stay away from [facility]. Patient has been consulted regarding any further do's and don'ts of . Patient voiced understanding and all questions and concerns were answered. Orders Placed This Encounter Procedures POCT urinalysis dipstick manually resulted Follow Up: Patient is to return in 4 weeks for routine OB appointment. Documented by Kristi Malave LPN on behalf of: Roxanna Winn DO documented in this encounter [facility] History of Present illness Narrative 04-30-2024 Shirin Ngo MA - 04/30/2024 10:30 AM EST Note Date & Type Note Facility 04-30-2024 History of Presen t illness Narrative Reason for Appointment: Patient ID: Sera Diaz is a 23 y.o. female who presents for Amenorrhea Patient presents today for a Nurse OB Intake appointment. Patient is 6w3d with a Estimated Date of Delivery: 12/21/24 OB History Para Term AB Living 2 1 0 1 SAB IAB Ectopic Multiple Live Births 1 # Outcome Date GA Lbr Ladarius/2nd Weight Sex Type Anes PTL Lv 2 Current 1 Para 04/10/19 F Vag-Spont MAURO Current Medications: has a current medication list which includes the following prescription(s): vit w/yv-whmvnjuwz-ke. Medical History: Active Ambulatory Problems Diagnosis Date Noted No Active Ambulatory Problems Resolved Ambulatory Problems Diagnosis Date Noted No Resolved Ambulatory Problems No Additional Past Medical History No family history on file. Social History Tobacco Use Smoking status: Not on file Smokeless tobacco: Not on file Substance Use Topics Alcohol use: Not on file Drug use: Not on file History reviewed. No pertinent surgical history. No Known Allergies Vitals: Estimated body mass index is 36.39 kg/m as calculated from the following: Height as of this encounter: 5' 4 . Weight as of this encounter: 212 lb. BP: 118/74 Patient's last menstrual period was 02/24/2024. Assessment/Plan Diagnoses and all orders for this visit: Missed menses - Type and screen; Future - ABO/Rh; Future - CBC and differential - Hemoglobin A1c - RPR - Rubella antibody, IgG - Hepatitis B surface antigen - Hepatitis C antibody - HIV-1 and HIV-2 antibodies - Urine culture - US OB transvaginal; Future - POCT , urine manually resulted - POCT urinalysis dipstick manually resulted , unspecified gestational age - Type and screen; Future - ABO/Rh; Future - CBC and differential - Hemoglobin A1c - RPR - Rubella antibody, IgG - Hepatitis B surface antigen - Hepatitis C antibody - HIV-1 and HIV-2 antibodies - Rapid drug screen, urine; Future Encounter for supervision of normal first in first trimester - Rapid drug screen, urine; Future 6 weeks gestation of Nurse Note: Pt desire to have her labs done in [facility]. Advised pt to please have them fax it back to our office. OB Intake: Patient presents today for first OB visit. Patients history has been reviewed in great detail including any potential risks. Patient signed consent forms and patient desires testing in both trimesters. Patient currently has no complaints and has been advised to drink 6-8 glasses of water a day, eat no raw or undercooked meat, and stay away from [facility]. Patient has also been advised to not change litter boxes and eat 6 small meals a day. Patient has been consulted regarding the do's and don'ts of . Patient was given labs and all questions and concerns were answered. Follow Up: Patient is to return in 4 weeks for routine OB appointment. Follow Up: Patient is to have labs drawn at directed and return to office for initial OB appointment with provider. Patient may call office as needed with any concerns or questions. Nurse Visit Completed by: Shirin Ngo MA documented in this encounter [facility] Evaluation note Note Date & Type Note Facility Evaluation note Diagnosis Missed menses , unspecified gestational age Encounter for supervision of normal first in first trimester 6 weeks gestation of documented in this encounter [facility] Evaluation note Note Date & Type Note Facility Evaluation note Diagnosis 10 weeks gestation of First trimester state, incidental documented in this encounter [facility] Summary Purpose Family History No Family History Records FoundNo Family History Records FoundNo Family History Records Found Advance Directives No Advanced Directives Records FoundNo Advanced Directives Records FoundNo Advanced Directives Records Found Additional Source Comments INFORMATION SOURCE (unrecogn ized section and content) DATE CREATED AUTHOR 04/17/2019 [facility] DATE CREATED AUTHOR AUTHOR'S ORGANIZ ATION 06/05/2024 [facility] DATE CREATED AUTHOR AUTHOR'S ORGANIZ ATION 06/07/2024 [facility] Reason for Visit (unrecogniz ed section and content) Reason Comments Amenorrhea Reason Comments Routine Visit FOR RECORDS PERTAINING TO PATIENTS WHO ARE OR HAVE BEEN ENROLLED IN A CHEMICAL DEPENDENCY/SUBSTANCEABUSE PROGRAM, SOME INFORMATION MAY BE OMITTED. This clinical summary was aggregated from multiple sources. Caution should be exercised in using it in the provision of clinical care. This summary normalizes information from multiple sources, and as a consequence, information in this document may materially change the coding, format and clinical context of patient data. In addition, data may be omitted in some cases. CLINICAL DECISIONS SHOULD BE BASED ON THE PRIMARY CLINICAL RECORDS. [facility]. provides no warranty or guarantee of the accuracy or completeness of information in this document.
[2024-07-02 12:20] LABS: BOX Test Reference Lab UNITY
[2024-07-02 12:23] LABS: BOX Test Sent Out UNITY
== END 2024-07-02 11:21 | disposition home or self-care (01) ==
PROVIDERS: Visit Provider Obstetrics & Gynecology
DX: Z36.0 Encounter for antenatal screening for chromosomal anomalies (principal)
CPT/HCPCS: 36415

== ENCOUNTER 2024-07-02 22:01 | Outpatient (REF) | payer MEDICAID, SELFPAY ==
--- OUTSIDE RECORDS SUMMARY | 2024-07-02 22:05 | XMS_ITS | CCD ---
Author Organization [facility] Care Team Providers Care Sales Operations Consultant Name Role Phone ENRICO SERRANO Admitting Unavailable [...] Class(es) Dates Sig (Normalized) Sig (Original) Vit w/Wc-Decmjvssp-LZ (PNV PO) (5 sources) Vit w/Wz-Nhgnegbfn-OM (PNV PO) Take by mouth Active Problems [...] UA Negative Negative - 4(70) +++ mg/dL [facility] Blood, UA Negative Negative - 50 Balbir/mcL [facility] Clarity, UA Clear [facility] Healthnj re Color, UA Yellow [facility] Glucose, UA Positive Negative - 1999(110) ++++ mg/dL [facility] Comment on above: 100 Interpretation and review of laboratory results Abnormal [facility] Ketones, UA Negative Negative - 160(16) ++++ mg/dL [facility] Leukocytes, UA Negative Negative - 500+++ Osbaldo/mcL [facility] Nitrite, UA Negative Negative - Positive [facility] pH, UA 7 5 - 9 [facility] Protein, UA Negative Negative - 1999(20) ++++ mg/dL [facility] Spec Grav, UA 1.015 1 - 1.03 [facility] Urobilinogen, UA 0.2 0.2 - 12 mg/dL [facility] CBC AND AUTO DIFFon 05-01-20 24 ABSOLUTE BASOPHIL 0.0 X10E9/L Normal 0.0-0.2 [facility] Comment on above: Performed By: #### C ALIDA, HA1C, 8014-3, 01726-6, 84657-6, 81127-5, 5196-1 #### [facility] ([id number]) [address], [address] [place] [address] ABSOLUTE NEUTROPHIL 4.8 X10E9/L Normal 1.5-6.6 [facility] Comment on above: Performed By: #### C ALIDA, HA1C, 8014-3, 33086-2, 61236-4, 96843-7, 5196-1 #### [facility] ([id number]) [address], [address] [place] [address] Basophils/100 WBC (Bld) 0.4 % Normal [facility] Comment on above: Performed By: #### C ALIDA, HA1C, 8014-3, 67333-2, 03609-5, 82074-4, 5196-1 #### [facility] ([id number]) [address], [address] [place] [address] Eosinophils (Bld) [#/Vol] 0.1 10*3/uL Normal 0.0-0.4 [facility] Comment on above: Performed By: #### C ALIDA, HA1C, 8014-3, 38989-4, 89915-0, 43438-2, 5196-1 #### [facility] ([id number]) [address] [address] [place] [address] Eosinophils/100 WBC (Bld) 1.2 % Normal [facility] Comment on above: Performed By: #### C ALIDA, JENNIFER1C, 8014-3, 43870-8, 75527-2, 03010-0, 5196-1 #### [facility] ([id number]) [address] [address] Erythrocyte distribution width (RBC) [Ratio] 14.1 % Normal 11.5-15.0 [facility] Comment on above: Performed By: #### C ALIDA, HA1C, 8014-3, 57044-8, 00710-8, 92838-4, 5196-1 #### [facility] ([id number]) [address] [address] Hematocrit (Bld) [Volume fraction] 37.2 % Normal 35-47 [facility] Comment on above: Performed By: #### C ALIDA, HA1C, 8014-3, 26569-7, 70039-0, 18885-1, 5196-1 #### [facility] ([id number]) [address] [address] [place] [address] Hemoglobin (Bld) [Mass/Vol] 12.6 g/dL Normal 11.7-15.5 [facility] Comment on above: Performed By: #### C ALIDA, HA1C, 8014-3, 05997-7, 59429-3, 66350-0, 5196-1 #### [facility] ([id number]) [address], [address] [place] [address] Lymphocytes (Bld) [#/Vol] 1.5 10*3/uL Normal 1.0-3.5 [facility] Comment on above: Performed By: #### C ALIDA, HA1C, 8014-3, 70348-7, 41780-3, 11185-9, 5196-1 #### [facility] ([id number]) [address], [address] [place] [address] Lymphocytes/100 WBC (Bld) 21.4 % Normal [facility] Comment on above: Performed By: #### C ALIDA, HA1C, 8014-3, 42073-8, 49735-0, 38002-6, 5196-1 #### [facility] ([id number]) [address], [address] [place] [address] MCH (RBC) [Entitic mass] 30.2 pg Normal 27-34 [facility] Comment on above: Performed By: #### C ALIDA, HA1C, 8014-3, 47657-3, 94075-7, 18671-7, 5196-1 #### [facility] ([id number]) [address] [place] [address] MCHC (RBC) [Mass/Vol] 33.9 g/dL Normal 32-36 [facility] Comment on above: Performed By: #### Tatiana IRWIN, HA1C, 8014-3, 02227-7, 70715-9, 64088-8, 5196-1 #### [facility] ([id number]) [address], [address] [place] [address] MCV (RBC) [Entitic vol] 89 fL Normal 80-100 [facility] Comment on above: Performed By: #### Tatiana IRWIN, HA1C, 8014-3, 30045-7, 70094-7, 70505-7, 5196-1 #### [facility] ([id number]) [address] [place] [address] Monocytes (Bld) [#/Vol] 0.6 10*3/uL Normal 0-0.9 [facility] Comment on above: Performed By: #### C ALIDA, HA1C, 8014-3, 19434-5, 17802-7, 03962-2, 5196-1 #### [facility] ([id number]) [address] [place] [address] Monocytes/100 WBC (Bld) 8.7 % Normal [facility] Comment on above: Performed By: #### C ALIDA, HA1C, 8014-3, 15221-9, 32830-8, 93426-0, 5196-1 #### [facility] ([id number]) [address], [address] [place] [address] Neutrophils/100 WBC (Bld) 68.3 % Normal [facility] Comment on above: Performed By: #### Tatiana IRWIN, HA1C, 8014-3, 09047-5, 03613-1, 44361-2, 5196-1 #### [facility] ([id number]) [address], [address] [place] [address] Platelet mean volume (Bld) [Entitic vol] 7.8 fL Normal 7-12 [facility] Comment on above: Performed By: #### Tatiana IRWIN, HA1C, 8014-3, 60015-1, 04833-4, 99005-0, 5196-1 #### [facility] ([id number]) [address], [address] [place] [address] Platelets (Bld) [#/Vol] 279 10*3/uL Normal 150-450 [facility] Comment on above: Performed By: #### Tatiana IRWIN, HA1C, 8014-3, 08975-4, 47523-2, 66138-7, 5196-1 #### [facility] ([id number]) [address] [place] [address] RBC COUNT 4.17 X10E12/L Normal 3.80-5.20 [facility] Comment on above: Performed By: #### C ALIDA, JENNIFER1C, 8014-3, 78000-3, 86595-1, 41630-8, 5196-1 #### [facility] ([id number]) [address] [place] [address] WBC (Bld) [#/Vol] 7.0 10*3/uL Normal 4.0-11.0 [facility] Comment on above: Performed By: #### C ALIDA, JENNIFER1C, 8014-3, 84184-5, 71769-2, 55788-0, 5196-1 #### [facility] ([id number]) [address] [place] [address] CBC W Auto Differential pane l (Bld)on 05-01-2024 ABSOLUTE BASOPHIL 0 [facility] Comment on above: PERFORMED AT [facility] [address] [facility] [address],[place] [address] Basophils/100 WBC (Bld) 0.4 % [facility] Eosinophils (Bld) [#/Vol] 0.1 10*3/uL [facility] Eosinophils/100 WBC (Bld) 1.2 % [facility] Erythrocyte distribution width (RBC) [Ratio] 14.1 % 11.5 - 15.0 % [facility] Hematocrit (Bld) [Volume fraction] 37.2 % 35 - 47 % [facility] Hem[facility] (Bld) [Mass/Vol] 12.6 g/dL 11.7 - 15.5 g/dL [facility] Lymphocytes (Bld) [#/Vol] 1.5 10*3/uL [facility] Lymphocytes/100 WBC (Bld) 21.4 % [facility] MCH (RBC) [Entitic mass] 30.2 pg 27 - 34 pg [facility] MCHC (RBC) [Mass/Vol] 33.9 g/dL 32 - 36 g/dL [facility] MCV (RBC) [Entitic vol] 89 fL 80 - 100 fL [facility] Monocytes (Bld) [#/Vol] 0.6 10*3/uL [facility] Monocytes/100 WBC (Bld) 8.7 % [facility] Neutrophils (Bld) [#/Vol] 4.8 10*3/uL [facility] Neutrophils/100 WBC (Bld) 68.3 % [facility] Platelet mean volume (Bld) [Entitic vol] 7.8 fL 7 - 12 [facility] Platelets (Bld) [#/Vol] 279 10*3/uL [facility] RBC (Bld) [#/Vol] 4.17 10*6/uL [facility] WBC corrected for nucl RBC Auto (Bld) [#/Vol] 7 [facility] DRUG SCREEN, URINEon 024 AMPHETAMINE/METHAMP Negative Normal NEG [facility] Comment on above: Result Comment: AMPH /METH screening cut off = 1000 ng/mL Performed By: #### D SAMANIEGO #### [facility] ([id number]) [address], [address] [place] [address] BARBITURATES Negative Normal NEG [facility] Comment on above: Result Comment: Jenniffer iturates screening cut off value = 200 ng/mL Performed By: #### D SAMANIEGO #### [facility] ([id number]) [address], [address] [place] [address] BENZODIAZEPINES Negative Normal NEG [facility] Comment on above: Result Comment: Roberto odiazepines screening cut off value = 200 ng/mL Performed By: #### D SAMANIEGO #### [facility] ([id number]) [address] [place] [address] CANNABINOIDS Positive Abnormal NEG [facility] Comment on above: Result Comment: Conf irmation available upon request. Cannabinoids/THC screening cut off value = 50 ng/mL Performed By: #### D SAMANIEGO #### [facility] ([id number]) [address] [place] [address] COCAINE METABOLITE Negative Normal NEG [facility] Comment on above: Result Comment: Coca ine screening cut off value = 300 ng/mL Performed By: #### D SAMANIEGO #### [facility] ([id number]) [address] [place] [address] ECSTASY Negative Normal NEG [facility] Comment on above: Result Comment: Ecst asy screening cut off value = 500 ng/mL This report is intended for use in clinical monitoring or management of patients. Performed By: #### D SAMANIEGO #### [facility] ([id number]) [address] [place] [address] METHADONE Negative Normal NEG [facility] Comment on above: Result Comment: Meth adone screening cut off value = 300 ng/mL. Performed By: #### D SAMANIEGO #### [facility] ([id number]) [address] [place] [address] OPIATES Negative Normal NEG [facility] Comment on above: Result Comment: Opia wyatt screening cut off value = 300 ng/mL NOTE: This test is used for the detection of codeine, hydrocodone (>1000 ng/mL), morphine and hydromorphone (>900 ng/mL) in urine. Performed By: #### D SAMANIEGO #### [facility] ([id number]) [address] [place] [address] OXYCODONE Negative Normal NEG [facility] Comment on above: Result Comment: Oxyc odone screening cut off value = 300 ng/mL NOTE: This test is used for the detection of oxycodone and oxymorphone in urine. Performed By: #### D SAMANIEGO #### [facility] ([id number]) [address] [place] [address] PHENCYCLIDINE Negative Normal NEG [facility] Comment on above: Result Comment: Phen cyclidine screening cut off value = 25 ng/mL Performed By: #### D SAMANIEGO #### [facility] ([id number]) [address] [facility], [address] [place] [address] HBV surface Ag IA Qlon 05-01 HEPATITIS B SURF AG Non-Reactive Normal NRCT Pro [facility] Comment on above: Performed By: #### C TAE IRWIN, 8014-3, 12308-3, 20773-3, 48506-8, 5196-1 #### [facility] ([id number]) [address] [facility], [address] [place] [address] HCV Ab IA on 05-01-2024 ANTI HCV W/PCR REFLX Non-Reactive Normal NRCT Pr [facility] Comment on above: Result Comment: NOTE If recent infection suspected, recommend repeat testing (>2 months). Nkuvua-pm-jfbqet ratio is <1.00. Performed By: #### C JENNIFER IRWIN1C, 8014-3, 27054-0, 70445-7, 00842-0, 5196-1 #### [facility] ([id number]) [facility] [facility], [address] [place] [address] HGB A1C (GLYCO-HGB)on 2023 Glucose [Mass/Vol] 105 mg/dL Normal [facility] Comment on above: Performed By: #### C TAE IRWIN, 8014-3, 18233-7, 51130-7, 71644-5, 5196-1 #### [facility] ([id number]) [address] [place] [address], [address] [place] [address] HbA1c (Bld) [Mass fraction] 5.3 % Normal 4.4-5.6 [facility] Comment on above: Result Comment: NOTE ADA Guidelines Result HgbA1c Normal : less than 5.7 % Prediabetes : 5.7 % to 6.4 % Diabetes : > 6.4 % Use with caution in patients with abnormal hemoglobin variants as the half-life of red blood cells and in vivo glycation rates are affected. Performed By: #### C TAE IRWIN, 8014-3, 83355-8, 72649-1, 26544-3, 5196-1 #### [facility] ([id number]) [address] [place] [address], [address] [address] HIV 1+2 Ab+HIV1 p24 Ag IA Ql on 05-01-2024 HIV 1 and 2 Ab/Ag Screen Non-Reactive Normal NRCT [facility] Comment on above: Result Comment: NOTE This [...] Performed By: #### C ALIDA, TAE, 8014-3, 48907-7, 51267-2, 43000-0, 5196-1 #### [facility] ([id number]) [address] [place] [address], [address] [address] Rubella virus IgG Qn (S)on 1 07-02-2023 RUBELLA IgG 55 IU/mL Normal [facility] Comment on above: Result Comment: Interpretation-------- <8 NEGATIVE-considered Not Immune 8-9 EQUIVOCAL-consider retesting with new specimen >9 POSITIVE-considered Immune Performed By: #### C ALIDA, JENNIFER1C, 8014-3, 55554-6, 47545-9, 46030-3, 5196-1 #### [facility] ([id number]) [address] [place] [address], [facility] [address] [place] [address] T. pallidum IgG+IgM IA Ql (S )on 05-01-2024 Syphilis Total <0.2 Normal 0.0-0.8 [facility] Comment on above: Result Comment: NON REACTIVE No serologic evidence of infection to Treponema pallidum (syphilis). Repeat testing may be considered in patients with suspected acute or primary syphilis in 2 to 4 weeks. Performed By: #### C BCA, HA1C, 8014-3, 09010-5, 44450-0, 38548-2, 5196-1 #### [facility] ([id number]) [address] [place] [address] URINE CULTUREon 05-01-2024 Bacteria identified Cx Nom (U) CULTURE RESULTS 10-50,000 ORGANISMS/mL NORMAL UROGENITAL KATY Normal [facility] Comment on above: Performed By: #### 6 30-4 #### [facility] ([id number]) [address] [place] [address] HCG ( test) Ql (U)o n 04-30-2024 Interpretation and review of laboratory results Abnormal [facility] Preg Test, Ur Positive Negative [facility] Health care [facility] Urinalysis macro (dipstick) panel (U)on 04-30-2024 Bilirubin, UA Negative Negative - 4(70) +++ mg/dL [facility] Blood, UA Negative Negative - 50 Balbir/mcL [facility] Clarity, UA Clear [facility] Color, UA Yellow [facility] Glucose, UA Negative Negative - 1999(110) ++++ mg/dL [facility] Interpretation and review of laboratory results Abnormal [facility] Ketones, UA Positive Negative - 160(16) ++++ mg/dL [facility] Comment on above: 30 Leukocytes, UA Negative Negative - 500+++ Osbaldo/mcL [facility] Nitrite, UA Negative Negative - Positive [facility] pH, UA 6 5 - 9 [facility] Protein, UA Negative Negative - 1999(20) ++++ mg/dL [facility] Spec Grav, UA 1.02 1 - 1.03 [facility] Health care Urobilinogen, UA 0.2 0.2 - 12 mg/dL [facility] CBC AUTO DIFFon 04-11-2019 Basophils (Bld) [#/Vol] 0.0 103/ul Normal 0.0-0.1 [facility] Comment on above: Performed By: #### C BC #### [facility] [address] [place], [place] [address] Senia Margarita Basophils/100 WBC (Bld) 0.3 % Normal 0.2-2.0 [facility] Comment on above: Performed By: #### C BC #### [facility] [address] [place], [place] [address] Senia Margarita Eosinophils (Bld) [#/Vol] 0.1 103/ul Normal 0.0-0.7 [facility] Comment on above: Performed By: #### C BC #### [facility] [address] [place], [place] [address] Senia Margarita Eosinophils/100 WBC (Bld) 0.8 % Critically low 0.9-7.0 [facility] Comment on above: Performed By: #### C BC #### [facility] [address] [place], [place] [id number] Senia Margarita Erythrocyte distribution width (RBC) [Ratio] 13.3 % Normal 11.0-15.0 [facility] Comment on above: Performed By: #### C BC #### [facility] [address] [place] [address] Senia Margarita Hematocrit (Bld) [Volume fraction] 27.9 % Critically low 36.0-48.0 [facility] Comment on above: Performed By: #### C BC #### [facility] [address] [place] [address] Senia Margarita Hemoglobin (Bld) [Mass/Vol] 9.5 g/dL Critically low 12.0-16.0 [facility] Comment on above: Result Comment: post Performed By: #### C BC #### [facility] [address] [place] [address] Senia Margarita IG # 0.15 10e3/ul Critically high 0.00-0.03 [facility] Comment on above: Performed By: #### C BC #### [facility] [address] [place], [place] [address] Senia Margarita IG % 1.1 % Critically high 0.0-0.5 [facility] Comment on above: Performed By: #### C BC #### [facility] [address] [place], [place] [address] Senia Margarita Lymphocytes (Bld) [#/Vol] 1.6 103/ul Normal 1.2-3.8 [facility] Comment on above: Performed By: #### C BC #### [facility] [address] [place], [place] [address] Senia Margarita Lymphocytes/100 WBC (Bld) 11.8 % Critically low 20.5-60.0 [facility] Comment on above: Performed By: #### C BC #### [facility] [address] [place], [place] [address] Senia Margarita MANUAL DIFF REQ NO Normal [facility] Comment on above: Performed By: #### C BC #### [facility] [address] [place] [address] Senia Margarita MCH (RBC) [Entitic mass] 30.4 pg Normal 26.7-34.0 [facility] Comment on above: Performed By: #### C BC #### [facility] [address] [place] [address] Senia Margarita MCHC (RBC) [Mass/Vol] 34.1 g/dL Normal 29.9-35.2 [facility] Comment on above: Performed By: #### C BC #### [facility] [address] [place], [place] [id number] Senia Margarita MCV (RBC) [Entitic vol] 89.4 fL Normal 79.1-95.6 [facility] Comment on above: Performed By: #### C BC #### [facility] [address] [place], [place] [address] Senia Margarita Monocytes (Bld) [#/Vol] 1.4 103/ul Critically high 0.3-0.8 [facility] Comment on above: Performed By: #### C BC #### [facility] [address] [place], [place] [address] Senia Margarita Monocytes/100 WBC (Bld) 10.2 % Normal 1.7-12.0 [facility] Comment on above: Performed By: #### C BC #### [facility] [address] [place] [address] Senia Margarita Neutrophils (Bld) [#/Vol] 10.2 103/ul Critically high 1.4-6.5 [facility] Comment on above: Performed By: #### C BC #### [facility] [address] [place], [place] [id number] Senia Margarita Neutrophils/100 WBC (Bld) 75.8 % Critically high 43.0-75.0 [facility] Comment on above: Performed By: #### C BC #### [facility] [address] [place], [place] [id number] Senia Margarita Platelet mean volume (Bld) [Entitic vol] 9.1 fL Critically low 9.5-13.5 [facility] Comment on above: Performed By: #### C BC #### [facility] [address] [place], [place] [id number] Senia Margarita Platelets (Bld) [#/Vol] 150 103/ul Normal 150-450 [facility] Comment on above: Performed By: #### C BC #### [facility] [address] [place], [place] [id number] Senia Margarita RBC (Bld) [#/Vol] 3.12 106/ul Critically low 3.40-5.30 [facility] Comment on above: Performed By: #### C BC #### [facility] [address] [place], [place] [id number] Senia Margarita WBC (Bld) [#/Vol] 13.5 103/ul Critically high 4.0-11.0 [facility] Comment on above: Performed By: #### C BC #### [facility] [address] [place], [place] [id number] Senia Margarita CBC AUTO DIFFon 04-09-2019 Basophils (Bld) [#/Vol] 0.0 103/ul Normal 0.0-0.1 [facility] Comment on above: Performed By: #### C BC #### [facility] [address] [place], [place] [id number] Senia Margarita Basophils/100 WBC (Bld) 0.3 % Normal 0.2-2.0 [facility] Comment on above: Performed By: #### C BC #### [facility] [address] [place], [place] [id number] Senia Margarita Eosinophils (Bld) [#/Vol] 0.0 103/ul Normal 0.0-0.7 [facility] Comment on above: Performed By: #### C BC #### [facility] [address] [place] [address] Senia Margarita Eosinophils/100 WBC (Bld) 0.3 % Critically low 0.9-7.0 [facility] Comment on above: Performed By: #### C BC #### [facility] [address] [place] [address] Senia Margarita Erythrocyte distribution width (RBC) [Ratio] 13.3 % Normal 11.0-15.0 [facility] Comment on above: Performed By: #### C BC #### [facility] [address] [place] [address] Senia Margarita Hematocrit (Bld) [Volume fraction] 41.1 % Normal 36.0-48.0 [facility] Comment on above: Performed By: #### C BC #### [facility] [address] [place], [place] [id number] Senia Margarita Hemoglobin (Bld) [Mass/Vol] 14.3 g/dL Normal 12.0-16.0 [facility] Comment on above: Performed By: #### C BC #### [facility] [address] [place] [address] Senia Margarita IG # 0.12 10e3/ul Critically high 0.00-0.03 [facility] Comment on above: Performed By: #### C BC #### [facility] [address] [place], [place] [id number] Senia Margarita IG % 1.0 % Critically high 0.0-0.5 [facility] Comment on above: Performed By: #### C BC #### [facility] [address] [place], [place] [id number] Senia Margarita Lymphocytes (Bld) [#/Vol] 1.0 103/ul Critically low 1.2-3.8 [facility] Comment on above: Performed By: #### C BC #### [facility] [address] [place] [address] Senia Margarita Lymphocytes/100 WBC (Bld) 7.8 % Critically low 20.5-60.0 [facility] Comment on above: Performed By: #### C BC #### [facility] [address] [place] [address] Senia Margarita MANUAL DIFF REQ NO Normal [facility] Comment on above: Performed By: #### C BC #### [facility] [address] [place], [place] [id number] Senia Margarita MCH (RBC) [Entitic mass] 30.9 pg Normal 26.7-34.0 [facility] Comment on above: Performed By: #### C BC #### [facility] [address] [place] [address] Senia Margarita MCHC (RBC) [Mass/Vol] 34.8 g/dL Normal 29.9-35.2 [facility] Comment on above: Performed By: #### C BC #### [facility] [address] [place] [address] Senia Margarita MCV (RBC) [Entitic vol] 88.8 fL Normal 79.1-95.6 [facility] Comment on above: Performed By: #### C BC #### [facility] [address] [place] [address] Senia Margarita Monocytes (Bld) [#/Vol] 1.1 103/ul Critically high 0.3-0.8 [facility] Comment on above: Performed By: #### C BC #### [facility] [address] [place], [place] [id number] Senia Margarita Monocytes/100 WBC (Bld) 9.1 % Normal 1.7-12.0 [facility] Comment on above: Performed By: #### C BC #### [facility] [address] [place], [place] [id number] Senia Margarita Neutrophils (Bld) [#/Vol] 10.2 103/ul Critically high 1.4-6.5 [facility] Comment on above: Performed By: #### C BC #### [facility] [address] [place], [place] [id number] Senia Margarita Neutrophils/100 WBC (Bld) 81.5 % Critically high 43.0-75.0 [facility] Comment on above: Performed By: #### C BC #### [facility] [address] [place], [place] [id number] Senia Margarita Platelet mean volume (Bld) [Entitic vol] 9.4 fL Critically low 9.5-13.5 [facility] Comment on above: Performed By: #### C BC #### [facility] [address] [place], [place] [id number] Senia Margarita Platelets (Bld) [#/Vol] 223 103/ul Normal 150-450 [facility] Comment on above: Performed By: #### C BC #### [facility] [address] [place], [place] [id number] Senia Margarita RBC (Bld) [#/Vol] 4.63 106/ul Normal 3.40-5.30 [facility] Comment on above: Performed By: #### C BC #### [facility] [address] [place], [place] [id number] Senia Margarita WBC (Bld) [#/Vol] 12.5 103/ul Critically high 4.0-11.0 [facility] Comment on above: Performed By: #### C BC #### [facility] [address] [place], [place] [id number] Seniaamilcar Avila DRUG SCREEN RAPID (URINE)on 04-09-2019 AMP Negative Normal NEGATIVE [facility] Comment on above: Performed By: #### C BC #### [facility] [address] [place], [place] [id number] Senia Margarita BAR Negative Normal NEGATIVE [facility] Comment on above: Performed By: #### C BC #### [facility] [address] [place], [place] [id number] Senia Margarita BUP Negative Normal NEGATIVE [facility] Comment on above: Performed By: #### C BC #### [facility] [address] [place] [address] Senia Margarita BZO Negative Normal NEGATIVE [facility] Comment on above: Performed By: #### C BC #### [facility] [address] [place] [address] Senia Margarita DOMINGA Negative Normal NEGATIVE [facility] Comment on above: Performed By: #### C BC #### [facility] [address] [place] [address] Senia Margarita CUT-OFFS SEE BELOW Normal [facility] Comment on above: Result Comment: AMP [...] ng/mL Performed By: #### C BC #### [facility] [address] [place] [address] Senia Margarita DRUG CUT HEADER DRUG CLASS TEST SYSTEM CUT-OFF CONCENTRATIONS ARE FOLLOWS: Normal [facility] Comment on above: Performed By: #### C BC #### [facility] [address] [place] [address] Senia Margarita mAMP Negative Normal NEGATIVE [facility] Comment on above: Performed By: #### C BC #### [facility] [address] [place] [address] Senia Margarita MTD Negative Normal NEGATIVE [facility] Comment on above: Performed By: #### C BC #### [facility] [address] [place] [address] Senia Margarita OPI Negative Normal NEGATIVE [facility] Comment on above: Performed By: #### C BC #### [facility] [address] [place] [address] Senia Margarita OXY Negative Normal NEGATIVE [facility] Comment on above: Performed By: #### C BC #### [facility] [address] [place] [address] Senia Margarita PCP Negative Normal NEGATIVE [facility] Comment on above: Performed By: #### C BC #### [facility] [address] [place] [address] Senia Margarita PPX Negative Normal NEGATIVE [facility] Comment on above: Performed By: #### C BC #### [facility] [address] [place] [address] Senia Margarita TCA Negative Normal NEGATIVE [facility] Comment on above: Performed By: #### C BC #### [facility] [address] [place] [address] Senia Margarita THC Negative Normal NEGATIVE [facility] Comment on above: Performed By: #### C BC #### [facility] [address] [place] [address] Seniaamilcar Avila CHLAMYDIA/GONOCOCCUS CECIL (SW AB/URINE/PAPon 03-19-2019 Chlamydia trachomatis, CECIL Negative Normal Negative [facility] Comment on above: Performed By: #### C BC #### [facility] [address] [place] [address] Seniaamilcar Avila Neisseria gonorrhoeae, CECIL Negative Normal Negative [facility] Comment on above: Performed By: #### C BC #### [facility] [address] [place] [address] Senia Avila GROUP B STREP CULTUREon 02-21 S. agalactiae Ag Ql (Unsp spec) Culture Observations: NEGATIVE FOR GROUP B STREPTOCOCCUS Normal [facility] Comment on above: Performed By: #### C BC #### [facility] [address] [place] [address] Senia Avila RPR QUANTon 12-23-2018 Rapid Plasma Reagin, Quant Non Reactive Normal NonRea<1:1 [facility] Comment on above: Performed By: #### C BC #### [facility] [address] [place], [place] [address] Senia Margarita AFP MATERNAL FOR SPINA BIFID Aon 12-22-2018 AFP MoM 1.16 Normal [facility] Comment on above: Performed By: #### C BC #### [facility] [address] [address] Senia Margarita AFP Value 115.2 ng/mL Normal [facility] Comment on above: Performed By: #### C BC #### [facility] [address] [id number] Senia Margarita AFP, Serum for Spina Bifida Report Normal [facility] Comment on above: Performed By: #### C BC #### [facility] [address] [address] Senia Margarita Comment Comment Normal [facility] Comment on above: Result Comment: Luis Palafox, Ph.D., [facility] Principal Genetics Log Handling Equipment Operator . References: Available Upon Request. . Multiples Of Median Cutoffs For AFP Elevations Joe 2.5 Black 2.8 IDD 2.0 Twins 4.5 Abbreviation Definitions IDD - Insulin Dep Diabetes OSBR - Open Spina Bifida Risk . For further inquiries contact [facility] at [phone]. Performed By: #### C BC #### [facility] [address] [id number] Senia Avila Gest Age Collection Date 23.7 weeks Normal [facility] Comment on above: Performed By: #### C BC #### [facility] [address] [id number] Senia Margarita Gestat, Age Based on Ultrasound Normal [facility] Comment on above: Result Comment: 23.6 on 12/19/2018 Recalculations are not recommended when gestational dating by LMP and ultrasound are within 10 days. Performed By: #### C BC #### [facility] [address] [id number] Senia Margarita Insulin Dep Diabetes No Normal [facility] Comment on above: Performed By: #### C BC #### [facility] [address] [address] Senia Avila Interpretation Comment Normal [facility] Comment on above: Result Comment: Inte rpretation: [...] Customer Services to discuss available options. The [employer] recommends amniocentesis be offered to women age 35 and older. Performed By: #### C BC #### [facility] [address] [place] [address] Senia Avila [age] Normal [facility] Comment on above: Performed By: #### C BC #### [facility] [address] [place] [address] Senia Avila Multiple Gestation No Normal [facility] Comment on above: Performed By: #### C BC #### [facility] [address] [address] Senia Avila OS[place] 1 [place] [address] Normal [facility] Comment on above: Performed By: #### C BC #### [facility] [address] [place] [address] Senia Avila PDF . Normal [facility] Comment on above: Performed By: #### C BC #### [facility] [address] [place] [address] Senia Avila Race Black Normal [facility] Comment on above: Performed By: #### C BC #### [facility] [address] [place] [address] Senia Avila Test Results: Negative Normal [facility] Comment on above: Performed By: #### C BC #### [facility] [address] [place] [address] Senia Avila HEP B SURFACE ANTIGEN SCREEN on 12-21-2018 HBsAg Confirmation NEUTIN Normal [facility] Comment on above: Result Comment: Unab le to obtain a valid test result for the Hepatitis B Surface Antigen confirmatory assay. Please resubmit if clinically indicated. Performed By: #### C BC #### [facility] [address] [place] [address] Senia Avila HBsAg Screen Confirm. indicated Normal Negative [facility] Comment on above: Performed By: #### C BC #### [facility] [address] [place] [address] Senia Avila HBsAg Screen Negative Normal Negative [facility] Comment on above: Performed By: #### H BSANS #### [facility] [address] [place] [address] Senia Avila HEPATITIS C VIRUS AB W/ REFL EX QUANTon 12-21-2018 HCV AB <0.1 Normal 0.0-0.9 [facility] Comment on above: Performed By: #### H CVPCRR #### [facility] [address] [place] [address] Senia Avila Interpretation: Comment Normal [facility] Comment on above: Result Comment: Nega tive Not infected with HCV, unless recent infection is suspected or other evidence exists to indicate HCV infection. Performed By: #### H CVPCRR #### [facility] [address] [place] [address] Senia Avila HGB(ELECTP) FRACTION PROFILE on 12-21-2018 Hemoglobin (Bld) [Mass/Vol] 98.2 % Normal 96.4-98.8 [facility] Comment on above: Performed By: #### C BC #### [facility] [address] [place] [address] Senia Avila Hgb A2 1.8 % Normal 1.8-3.2 [facility] Comment on above: Performed By: #### C BC #### [facility] [address] [place] [address] Senia Avila Hgb C 0.0 % Normal 0.0 [facility] Comment on above: Performed By: #### C BC #### [facility] [address] [place] [address] Senia Avila Hgb F 0.0 % Normal 0.0-2.0 [facility] Comment on above: Performed By: #### C BC #### [facility] [address] [place] [address] Senia Avila Hgb S 0.0 % Normal 0.0 [facility] Comment on above: Performed By: #### C BC #### [facility] [address] [place] [address] Senia Avila Hgb Solubility Negative Normal Negative [facility] Comment on above: Performed By: #### C BC #### [facility] [address] [place] [address] Senia Avila Hgb Variant Normal [facility] Comment on above: Performed By: #### C BC #### [facility] [address] [place] [address] Senia Avila Interpretation Comment Normal [facility] Comment on above: Result Comment: Norm al adult hemoglobin present. Performed By: #### C BC #### [facility] [address] [place] [address] Senia Avila HIV 1 AND 2 WITH REFLEXon HIV Screen 4th Generation wRfx Non Reactive Normal Non Reactive [facility] Comment on above: Performed By: #### H IV12 #### [facility] [address] [place] [address] Senia Avila RPR QUANTon 12-21-2018 Rapid Plasma Reagin, Quant Non Reactive Normal NonRea<1:1 [facility] Comment on above: Performed By: #### R PRQ #### [facility] [address] [place] [address] Senia Avila RUBELLA AB IGGon 12-21-2018 Rubella Antibodies, IgG 8.30 index Normal Immune >0.99 [facility] Comment on above: Result Comment: Non- immune <0.90 Equivocal 0.90 - 0.99 Immune >0.99 Performed By: #### R UBIGG #### [facility] [address] [place] [address] Senia Avila CBC AUTO DIFFon 12-20-2018 Basophils (Bld) [#/Vol] 0.0 103/ul Normal 0.0-0.1 [facility] Comment on above: Performed By: #### C BC #### [facility] [address] [place], [place] [id number] Senia Margarita Basophils/100 WBC (Bld) 0.2 % Normal 0.2-2.0 [facility] Comment on above: Performed By: #### C BC #### [facility] [address] [place], [place] [id number] Senia Margarita Eosinophils (Bld) [#/Vol] 0.1 103/ul Normal 0.0-0.7 [facility] Comment on above: Performed By: #### C BC #### [facility] [address] [place] [address] Senia Margarita Eosinophils/100 WBC (Bld) 0.9 % Normal 0.9-7.0 [facility] Comment on above: Performed By: #### C BC #### [facility] [address] [place] [address] Senia Margarita Erythrocyte distribution width (RBC) [Ratio] 13.4 % Normal 11.0-15.0 [facility] Comment on above: Performed By: #### C BC #### [facility] [address] [place], [place] [id number] Senia Margarita Hematocrit (Bld) [Volume fraction] 30.8 % Critically low 36.0-48.0 [facility] Comment on above: Performed By: #### C BC #### [facility] [address] [place], [place] [id number] Senia Margarita Hemoglobin (Bld) [Mass/Vol] 10.5 g/dL Critically low 12.0-16.0 [facility] Comment on above: Performed By: #### C BC #### [facility] [address] [place] [address] Senia Margarita IG # 0.09 10e3/ul Critically high 0.00-0.03 [facility] Comment on above: Performed By: #### C BC #### [facility] [address] [place], [place] [id number] Senia Margarita IG % 1.0 % Critically high 0.0-0.5 [facility] Comment on above: Performed By: #### C BC #### [facility] [address] [place], [place] [id number] Senia Margarita Lymphocytes (Bld) [#/Vol] 0.8 103/ul Critically low 1.2-3.8 [facility] Comment on above: Performed By: #### C BC #### [facility] [address] [place], [place] [id number] Senia Margarita Lymphocytes/100 WBC (Bld) 9.4 % Critically low 20.5-60.0 [facility] Comment on above: Performed By: #### C BC #### [facility] [address] [place], [place] [id number] Senia Margarita MANUAL DIFF REQ NO Normal [facility] Comment on above: Performed By: #### C BC #### [facility] [address] [place] [address] Senia Margarita MCH (RBC) [Entitic mass] 30.7 pg Normal 26.7-34.0 [facility] Comment on above: Performed By: #### C BC #### [facility] [address] [place], [place] [id number] Senia Margarita MCHC (RBC) [Mass/Vol] 34.1 g/dL Normal 29.9-35.2 [facility] Comment on above: Performed By: #### C BC #### [facility] [address] [place], [place] [id number] Senia Margarita MCV (RBC) [Entitic vol] 90.1 fL Normal 79.1-95.6 [facility] Comment on above: Performed By: #### C BC #### [facility] [address] [place], [place] [id number] Senia Margarita Monocytes (Bld) [#/Vol] 0.6 103/ul Normal 0.3-0.8 [facility] Comment on above: Performed By: #### C BC #### [facility] [address] [place], [place] [id number] Senia Margarita Monocytes/100 WBC (Bld) 6.2 % Normal 1.7-12.0 [facility] Comment on above: Performed By: #### C BC #### [facility] [address] [place], [place] [id number] Senia Margarita Neutrophils (Bld) [#/Vol] 7.4 103/ul Critically high 1.4-6.5 [facility] Comment on above: Performed By: #### C BC #### [facility] [address] [place], [place] [id number] Senia Margarita Neutrophils/100 WBC (Bld) 82.3 % Critically high 43.0-75.0 [facility] Comment on above: Performed By: #### C BC #### [facility] [address] [place] [address] Senia Margarita Platelet mean volume (Bld) [Entitic vol] 9.2 fL Critically low 9.5-13.5 [facility] Comment on above: Performed By: #### C BC #### [facility] [address] [place] [address] Senia Margarita Platelets (Bld) [#/Vol] 199 103/ul Normal 150-450 [facility] Comment on above: Performed By: #### C BC #### [facility] [address] [place] [address] Senia Margarita RBC (Bld) [#/Vol] 3.42 106/ul Normal 3.40-5.30 [facility] Comment on above: Performed By: #### C BC #### [facility] [address] [place] [address] Senia Margarita WBC (Bld) [#/Vol] 9.0 103/ul Normal 4.0-11.0 [facility] Comment on above: Performed By: #### C BC #### [facility] [address] [place], [place] [id number] Senia Margarita CULTURE URINEon 12-20-2018 CULTURE URINE Culture Observations: Light growth of mixed genital katy.No potential pathogens seen. Normal [facility] Comment on above: Performed By: #### C BC #### [facility] [address] [place], [place] [id number] Senia Avila GLUCOSE - 1HRon 12-20-2018 Glucose [Mass/Vol] 106 mg/dL Normal 74-106 [facility] Comment on above: Performed By: #### G LU1HR #### [facility] [address] [address] Senia Avila JAMEY BOX TEST PT SEND OUTo n 12-20-2018 SENT TO REF LAB 12/20/2018 Normal [facility] Comment on above: Performed By: #### N BOX #### [facility] [address] [address] Senia Avila TYPE AND SCREENon 12-20-2018 TYPE AND SCREEN Negative Normal [facility] Comment on above: Performed By: #### T NS #### [facility] [address] [place], [place] [id number] Senia Avila US PREG ANATOMY SINGLEon US PREG ANATOMY SINGLE Patient: SERA DIAZ Exam Date: 12/19/2018 : 2000 Gender:F Ordering : DR ENRICO SERRANO . Admission #: [id number] Family : Order #: [id number] CLICK HERE TO VIEW EXAM RADIOLOGY REPORT [...] Garces M.D. on 12/19/2018 at 15:48 Normal [facility] Vital Signs Date Time Vital Sign Value Performing Clinician Facility 05-31-2024 11:31-0500 Body mass index (BMI) [Ratio] 37.39 kg/m2 [facility] Work Phone: [facility] 05-31-2024 11:31-0500 Body weight 98.79 kg [employer] Work Phone: [facility] 05-31-2024 11:31-0500 Diastolic blood pressure 78 mm[Hg] [employer] Work Phone: [facility] 05-31-2024 11:31-0500 Systolic blood pressure 110 mm[Hg] [employer] Work Phone: [facility] 04-30-2024 11:22-0500 Body height 162.6 cm [facility] Nurse [facility] 04-30-2024 11:21-0500 Body mass index (BMI) [Ratio] 36.39 kg/m2 [facility] Nurse [facility] 04-30-2024 11:21-0500 Body weight 96.16 kg [facility] Nurse [facility] 04-30-2024 11:21-0500 Diastolic blood pressure 74 mm[Hg] [facility] Nurse [facility] 04-30-2024 11:21-0500 Systolic blood pressure 118 mm[Hg] [facility] Nurse [facility] 12-22-2018 14:07-0400 Body weight 67.5864 kg ENRICO SERRANO [facility] Comment on above: Performed By: #### CBC #### [facility] [address] [place], [place] [address] Senia Avila Encounters Encounter Date Encounter Type Care Provider Facility Start: 06-04-2024 End: 06-04-2024 ambulatory [facility] Start: 05-31-2024 End: 05-31-2024 Bamboo flowsheet Roxanna [...] 05-01-2024 End: 05-01-2024 ambulatory ROXANNA R PA [facility] Start: 04-30-2024 End: 04-30-2024 ambulatory [facility] [...] Routine [facility] [address] [place] [id number] Gloria Lloyd PA [address] [place] [address] [facility] Start: 05-31-2024 End: 05-31-2024 Patient encounter procedure 05/31/2024 10:50 AM EST Routine [facility] [address] [place] [id number] Roxanna Winn, DO [address] [place] [address] [facility] Start: 04-30-2024 End: 04-30-2025 ABO/Rh ABO/Rh Lab Routine Missed menses , unspecified gestational age Expected: 04/30/2024 (Approximate), Expires: 04/30/2025 [facility] Comment on above: Expected: 04/30/2024 (Approximate), Expires: 04/30/2025 Start: 04-30-2024 End: 04-30-2025 Blood type and Indirect antibody screen panel - Blood Type and screen Lab Routine Missed menses , unspecified gestational age Expected: 04/30/2024 (Approximate), Expires: 04/30/2025 [facility] Work Phone: Comment on above: Expected: 04/30/2024 (Approximate), Expires: 04/30/2025 Start: 04-30-2024 End: 04-30-2025 Drugs of abuse panel - Urine by Screen method Rapid drug screen, urine Lab Routine , unspecified gestational age Encounter for supervision of normal first in first trimester Expected: 04/30/2024 (Approximate), Expires: 04/30/2025 [facility] Comment on above: Expected: 04/30/2024 (Approximate), Expires: 04/30/2025 Start: 04-30-2024 End: 04-30-2025 US Pelvis transvaginal US OB transvaginal Imaging Routine Missed menses Expected: 04/30/2024 (Approximate), Expires: 04/30/2025 [facility] Comment on above: Expected: 04/30/2024 (Approximate), Expires: 04/30/2025 Bacteria identified in Urine by Culture Urine culture Microbiology Routine Missed menses Ordered: 04/30/2024 [facility] Comment on above: Ordered: 04/30/2024 CBC W Auto Different ial panel - Blood CBC and differential Lab Routine Missed menses , unspecified gestational age Ordered: 04/30/2024 [facility] Comment on above: Ordered: 04/30/2024 Hemoglobin A1c/Hemoglobin.total in Blood Hemoglobin A1c Lab Routine Missed menses , unspecified gestational age Ordered: 04/30/2024 [facility] Comment on above: Ordered: 04/30/2024 Hepatitis B virus surface Ag [Presence] in Serum or Plasma by Immunoassay Hepatitis B surface antigen Lab Routine Missed menses , unspecified gestational age Ordered: 04/30/2024 [facility] Comment on above: Ordered: 04/30/2024 Hepatitis C virus Ab [Presence] in Serum or Plasma by Immunoassay Hepatitis C antibody Lab Routine Missed menses , unspecified gestational age Ordered: 04/30/2024 [facility] Comment on above: Ordered: 04/30/2024 HIV-1/HIV-2 antigen/antibody combination immunoassay HIV-1 and HIV-2 antibodies Lab Routine Missed menses , unspecified gestational age Ordered: 04/30/2024 [facility] Comment on above: Ordered: 04/30/2024 Reagin Ab [Presence] in Serum by RPR RPR Lab Routine Missed menses , unspecified gestational age Ordered: 04/30/2024 [facility] Comment on above: Ordered: 04/30/2024 Rubella antibody, IgG Rubella an tibody, IgG Lab Routine Missed menses , unspecified gestational age Ordered: 04/30/2024 [facility] Comment on above: Ordered: 04/30/2024 Payers Date Payer Category Payer Medicaid [facility] [id number] 2023 Medicaid [id number] 2001 Unknown [id number] 2001 Unknown [id number] 2001 Unknown [id number] 2001 Unknown [id number] 1977 Unknown [id number] 1977 Unknown [id number] 1977 Unknown [id number] 1977 Unknown [id number] 1977 Unknown [id number] 1977 Unknown [id number] 1959 Unknown [id number] Social History Date Type Detail Facility Tobacco smoking stat [facility] Tobacco smoking consumption unknown [facility] [...] MEDICATIONS Current Outpatient Medications Medication Instructions Vit w/Ix-Swqpdpiso-PP (PNV PO) Take by mouth ALLERGIES No [...] nursing note reviewed. Exam conducted with a childcare center director present. Vitals: Estimated body mass index is [...] or undercooked meat, [facility] Patient has been consulted regarding any further [...] list which includes the following prescription(s): vit w/vd-itbibxnkz-fs. Medical History: Active Ambulatory Problems Diagnosis Date [...] desire to have her labs done in [facility]. Advised pt to please have them fax [...] or undercooked meat, and [facility]. Patient has also been advised to not [...] content) DATE CREATED AUTHOR 04/17/2019 [facility] DATE CREATED AUTHOR AUTHOR'S ORGANIZ ATION 06/05/2024 [facility] DATE CREATED AUTHOR AUTHOR'S ORGANIZ ATION 06/07/2024 [facility] Reason for Visit (unrecogniz ed section and [...] BE BASED ON THE PRIMARY CLINICAL RECORDS. [facility] [employer] [facility]. provides no warranty or guarantee of the accuracy or completeness of information in this document.
== END 2024-07-02 22:02 | disposition home or self-care (01) ==
LOC: LAB 22:01
PROVIDERS: Visit Provider Physician Assistant
DX: Z01.419 Encounter for gynecological examination (general) (routine) without abnormal findings (principal)
CPT/HCPCS: 88175

== ENCOUNTER 2024-11-21 14:45 | Outpatient (REF) | payer MEDICAID, SELFPAY ==
--- OUTSIDE RECORDS SUMMARY | 2024-06-06 04:45 | XMS_ITS ---
Author Organization Formerly [facility] vices Address [address] [place] [phone] Care Team Providers Care Assignment Editor Name Role Phone KaileeSita bakerica Anuja [phone] REASON FOR VISIT Rest #15-ODBL Social History Sex Assigned At : Social History Observation Description Sex Assigned At Female Encounters Encounter Location Date Provider Diagnosis [facility] [address] [place] [phone] 06/06/2024 Lorena Ferreira Plan Of Treatment Next Appt Details Provider Name:Lorena Ferreira , 12/07/2024 11:45:00 AM, [address], [place], [phone], Progress Notes * Sera DIAZ EDOB:[birth year] (24 yo F)Acc No.[id number]:06/06/2024 Patient: Sera MORALEZ Provider: Mary Ferreira DMD :2000 A ge:23 Y S ex:Female Date:06/06/2024 Address:[address] [place] [address], A PT E, [id number] Subjective: * Chief Complaints: * 1 . Rest #15-ODBL. * Medical History: Objective: * Vitals: Assessment: Plan: * Treatment: * Billing Information: * Visit Code: * Procedure Codes: * Electronic signature of Sita Ferreira DMD on 11/21/2024 at 11:24 AM EDT Sign off status: Pending * Provider: Mary Ferreira DMD Date: 0 06/06/2024 Generated for Gil villalpando/Zahira/Nellyitting on: 0 11/21/2024 11:24 AM EDT
--- OUTSIDE RECORDS SUMMARY | 2024-11-07 11:20 | XMS_ITS | Encounter Summary ---
Author Organization [facility] Address [address] [place] [address] Care Team Providers Care Hand Shaper Name Role Phone Unavailable Primary Care Provider Unavailabl e Reason for Visit * Reason Comments Routine Visit Encounter Details Date Type Department Care Team (Late st Contact Info) Description 2024 11:20 AM EDT Routine [facility] [address] [place] [phone] Alexander Winn, DO [address] [address] Third trimester ([facility]); 33 weeks gestation of ([facility]) Social History Tobacco Use Types Packs/Day Years Used Date Smoking Tobacco: Never Assessed Estimated Date of Delivery Comme nts Yes 12/21/2024 Based on Ultraso und Sex and Gender Information Value Date Recorded Sex Assigned at Not on file Legal Sex Female 11:47 PM EDT Gender Identity Not on file Sexual Orientation Not on file documented as of this encounter Last Filed Vital Signs Vital Sign Reading Time Taken Comments Blood Pressure 116/70 2024 11:33 AM EDT Pulse - - Temperature - - Respiratory Rate - - Oxygen Saturation - - Inhaled Oxygen Concentration - - Weight 97.5 kg (215 lb) 2024 11:33 AM EDT Height - - Body Mass Index 36.9 04/30/2024 11:22 AM EST documented in this encounter Progress Notes * Shirin Ngo MA - 2024 11:20 AM EDT Reason for Appointment: Patient ID: Sera Diaz is a 24 y.o. female who presents for Routine Visit Patient presents today for Return OB appointment. MEDICATIONS Current Outpatient Medications Medication Instructions iron polysaccharides (PROFE) 391.3 mg, Oral, Daily metoclopramide (REGLAN) 10 mg, Oral, 3 times daily before meals, Take 1 tablet by mouth 30 minutes prior to meals 3 times daily as needed for nausea. Vit w/Td-Nfqeakxys-OV (PNV PO) Take by mouth ALLERGIES No Known Allergies PROBLEMS Active Ambulatory Problems Diagnosis Date Noted 10 weeks gestation of ([facility]) 05/31/2024 First trimester ([facility]) 05/31/2024 31 weeks gestation of ([facility]) 10/23/2024 Third trimester ([facility]) 10/23/2024 Resolved Ambulatory Problems Diagnosis Date Noted No Resolved Ambulatory Problems No Additional Past Medical History HISTORY PAST MEDICAL HISTORY SOCIAL HISTORY No past medical history on file. Social History Tobacco Use Smoking status: Not on file Smokeless tobacco: Not on file Substance Use Topics Alcohol use: Not on file Drug use: Not on file FAMILY HISTORY No family history on file. SURGICAL HISTORY History reviewed. No pertinent surgical history. REVIEW OF SYSTEMS Review of Systems: Review of Systems Constitutional: Negative. HENT: Negative. Eyes: Negative. Respiratory: Negative. Cardiovascular: Negative. Gastrointestinal: Negative. Genitourinary: Negative. Musculoskeletal: Negative. Skin: Negative. Neurological: Negative. All other systems reviewed and are negative. Hematological: Negative. Endocrine: Negative. Allergic/Immunologic: Negative. OBJECTIVE Objective: Physical Exam Constitutional: Appearance: Normal appearance. She is normal weight. HENT: Head: Normocephalic. Cardiovascular: Rate and Rhythm: Normal rate. Pulses: Normal pulses. Pulmonary: Effort: Pulmonary effort is normal. Breath sounds: Normal breath sounds. Abdominal: Palpations: Abdomen is soft. Musculoskeletal: General: Normal range of motion. Neurological: General: No focal deficit present. Mental Status: She is alert and oriented to person, place, and time. Psychiatric: Mood and Affect: Mood normal. Behavior: Behavior normal. Thought Content: Thought content normal. Judgment: Judgment normal. Vitals and nursing note reviewed. Vitals: Estimated body mass index is 36.9 kg/m² as calculated from the following: Height as of 24: 5' 4 . Weight as of this encounter: 215 lb. BP: 116/70 Patient's last menstrual period was 02/24/2024. ASSESSMENT & PLAN ICD-10-CM 1. Third trimester ([facility]) Z34.93 POCT urinalysis dipstick manually resulted 2. 33 weeks gestation of ([facility]) Z3A.33 Return OB: Patient presents today for a routine obstetrics appointment. Patient is currently 33w5d . Patient states she is doing well but has complaints of being tired due to current . Patient has verbalizes frequent movement. labor precautions was discussed/given and patient was instructed to perform kick counts three times a day. Orders Placed This Encounter Procedures POCT urinalysis dipstick manually resulted Follow Up: Patient is to return to office in 2 week for routine OB appointment. Documented by Shirin Ngo MA on behalf of: irving garcia documented in this encounter Plan of Treatment Upcoming Encounters Date Type Department Care Team (Late st Contact Info) Description 11/28/2024 11:20 AM EDT Routine [facility] [address] [place] [address] Alexander Winn, DO [address] [address] documented as of this encounter Goals Goal Patient Goal Type Associated Problems Recent Progress Patient-Stated? Author Reminders Care Plan OB Reminders No Open Scheduling, Background documented as of this encounter Procedures Procedure Name Priority Date/Time Associated Diagnosis Comments POCT URINALYSIS DIPSTICK Routine 2024 11:42 AM EDT Third trimester ([facility]) documented in this encounter Results * (ABNORMAL) POCT urinalysis dipstick manually resulted (2024 11:42 AM EDT) Color, UA Yellow Clarity, UA Clear Glucose, UA Negative Negative - 2000(110) ++++ mg/dL Bilirubin, UA Negative Negative - 4(70) +++ mg/dL Ketones, UA Positive Negative - 160(16) ++++ mg/dL Comment:15 Spec Grav, UA 1.015 1 - 1.03 Blood, UA Negative Negative - 50 Balbir/mcL pH, UA 6.5 5 - 9 Protein, UA Negative Negative - 2000(20) ++++ mg/dL Urobilinogen, UA 0.2 0.2 - 12 mg/dL Leukocytes, UA Positive Negative - 500+++ Osbaldo/mcL Comment:large Nitrite, UA Negative Negative - Positive Urine 2024 11:4 2 AM EDT Alexander Winn DO POINT OF CARE TEST ENTER/EDIT OR DERABLES Final Result documented in this encounter Visit Diagnoses Diagnosis Third trimester ([facility]) state, incidental 33 weeks gestation of ([facility]) documented in this encounter Additional Health Concerns Active Problems Noted Date Diagnosed Date OB Reminders 05/01/2024 documented as of this encounter
--- OUTSIDE RECORDS SUMMARY | 2024-11-21 11:30 | XMS_ITS | Encounter Summary ---
Author Organization [facility] Address [address] [place] [address] Care Team Providers Care 2Nd Grade Teacher Name Role Phone Unavailable Primary Care Provider Unavailabl e Reason for Visit * Reason Comments Routine Visit Encounter Details Date Type Department Care Team (Late st Contact Info) Description 11/21/2024 11:30 AM EDT Routine [facility] [address] [place] [phone] Alexander Winn, DO [address] [place], [place] [id number] Third trimester ([facility] 35 weeks gestation of ([facility]); Anemia affecting in third trimester ([facility]) Social History Tobacco Use Types Packs/Day Years [...] Sign Reading Time Taken Comments Blood Pressure 118/72 11/21/2024 11:34 AM EDT Pulse - - Temperature - - Respiratory Rate - - Oxygen Saturation - - Inhaled Oxygen Concentration - - Weight 99.7 kg (219 lb 12.8 oz) 025 11:34 AM EDT Height - - Body Mass Index 37.73 04/30/2024 11:22 AM EST documented in this encounter Progress Notes * ARPIT Garcia - 11/21/2024 11:30 AM EDT Reason for Appointment: Patient ID: [...] times daily as needed for nausea. Vit w/On-Omgiwihhu-YO (PNV PO) Take by mouth ALLERGIES No Known Allergies PROBLEMS Active Ambulatory Problems Diagnosis Date Noted 10 weeks gestation of ([facility]) 05/31/2024 First trimester ([facility]) 05/31/2024 31 weeks gestation of ([facility]) 10/23/2024 Third trimester ([facility]) 10/23/2024 Resolved Ambulatory Problems Diagnosis Date Noted [...] No family history on file. SURGICAL HISTORY No past surgical history on file. REVIEW OF SYSTEMS Review of Systems: Review of Systems Constitutional: Negative. HENT: Negative. Eyes: Negative. Respiratory: Negative. Cardiovascular: Negative. Gastrointestinal: Negative. Genitourinary: Negative. Musculoskeletal: Negative. Skin: Negative. Neurological: Negative. All other systems reviewed and are negative. Hematological: Negative. Endocrine: Negative. Allergic/Immunologic: Negative. OBJECTIVE Objective: OBGyn Exam Vitals: Estimated body mass index is 37.73 kg/m² as calculated from the following: Height as of 04/30/24: 5' 4 . Weight as of this encounter: 219 lb 12.8 oz. BP: 118/72 Patient's last menstrual period was 02/24/2024. ASSESSMENT & PLAN ICD-10-CM 1. Third trimester ([facility]) Z34.93 POCT urinalysis dipstick manually resulted CULTURE, GROUP B STREP WITH SUSCEPTIBLITY CULTURE, GROUP B STREP WITH SUSCEPTIBLITY 2. 35 weeks gestation of ([facility]) Z3A.35 POCT urinalysis dipstick manually resulted 3. Anemia affecting in third trimester ([facility]) O99.013 Patient is doing well but has complaints of being tired and having maternal discomfort due to . Patient verbalized frequent movement and was instructed to perform kick counts three times per day. labor precautions were given, LARC consent was signed/declined, and GBS was obtained. Cervical check was performed and patient is 0cm dilated. Orders Placed This Encounter Procedures CULTURE, GROUP B STREP WITH SUSCEPTIBLITY POCT urinalysis dipstick manually resulted Follow Up: Patient is to return to office in 1 week for routine OB appointment Documented by ARPIT Garcia on behalf of: Alexander Winn DO documented in this encounter Plan of Treatment Upcoming Encounters Date Type Department Care Team (Late st Contact Info) Description 11/28/2024 11:20 AM EDT Routine [facility] [address] [place] [address] Alexander Winn DO [address] [place], [place] [id number] Scheduled Orders Name Type Priority Associated Diagnoses Orde r Schedule CULTURE, GROUP B STREP WITH SUSCEPTIBLITY Lab Routine Third trimester ([facility]) Expected: 11/21/2024, Expires: 11/21/2025 documented as of this encounter Goals Goal Patient Goal Type Associated Problems Recent Progress Patient-Stated? Author Reminders Care Plan OB Reminders No Open Scheduling, Background documented as of this encounter Procedures Procedure Name Priority Date/Time Associated Diagnosis Comments POCT URINALYSIS DIPSTICK Routine 11/21/2024 11:43 AM EDT Third trimester ([facility]) 35 weeks gestation of ([facility]) documented in this encounter Results * (ABNORMAL) POCT urinalysis dipstick manually resulted (11/21/2024 11:43 AM EDT) Color, UA Yellow Clarity, UA Clear Glucose, UA Positive Negative - 2000(110) ++++ mg/dL Bilirubin, UA Negative Negative - 4(70) +++ mg/dL Ketones, UA Negative Negative - 160(16) ++++ mg/dL Spec Grav, UA 1.025 1 - 1.03 Blood, UA Negative Negative - 50 Balbir/mcL pH, UA 6.5 5 - 9 Protein, UA Negative Negative - 2000(20) ++++ mg/dL Urobilinogen, UA 1.0 0.2 - 12 mg/dL Leukocytes, UA Positive Negative - 500+++ Osbaldo/mcL Nitrite, UA Negative Negative - Positive Urine 11/21/2024 11:4 3 AM EDT Alexander Winn DO POINT OF CARE TEST ENTER/EDIT OR DERABLES Final Result documented in this encounter Visit Diagnoses Diagnosis Third trimester ([facility]) state, incidental 35 weeks gestation of ([facility]) Anemia affecting in third trimester ([facility]) documented in this encounter Additional Health Concerns Active Problems Noted Date Diagnosed Date OB Reminders 05/01/2024 documented as of this encounter
--- OUTSIDE RECORDS SUMMARY | 2024-11-21 14:48 | XMS_ITS | Encounter Summary ---
Author Organization [facility] Address [address] [facility] [place] [address] Care Team Providers Care Ultrasound Technologist Name Role Phone Unavailable Primary Care Provider Unavailabl e Encounter Details Date Type Department Care Team (Late st Contact Info) Description 07/19/2024 Orders Only [facility] [address] [phone] Shirin Ngo [place] [address] [place] [address] Social History Tobacco Use Types Packs/Day Years Used Date Smoking Tobacco: Never Assessed Estimated Date of Delivery Comme nts Yes 12/21/2024 Based on Ultraso und Sex and Gender Information Value Date Recorded Sex Assigned at Not on file Legal Sex Female 11:47 PM EDT Gender Identity Not on file Sexual Orientation Not on file documented as of this encounter Plan of Treatment Upcoming Encounters Date Type Department Care Team (Late st Contact Info) Description 11/28/2024 11:20 AM EDT Routine [facility] [address] [phone] Alexander Winn DO [address] [place] [address] [address] [place], [place] [id number] documented as of this encounter Goals Goal Patient Goal Type Associated Problems Recent Progress Patient-Stated? Author Reminders Care Plan OB Reminders No Open Scheduling, Background documented as of this encounter Procedures Procedure Name Priority Date/Time Associated Diagnosis Comments PAP SMEAR Routine 07/02/2024 12:00 AM EST documented in this encounter Results * Pap Smear (07/02/2024 12:00 AM EST) Swab Cervical swab / Unknown [facility] ORDERABLES Final Re sult EXTERNAL LAB documented in this encounter Visit Diagnoses Not on filedocumented in this encounter Additional Health Concerns Active Problems Noted Date Diagnosed Date OB Reminders 05/01/2024 documented as of this encounter
--- OUTSIDE RECORDS SUMMARY | 2024-11-21 14:48 | XMS_ITS | Encounter Summary ---
Author Organization [facility] Address [address] [facility] [place] [address] Care Team Providers Care Marketing Operations Coordinator Name Role Phone Unavailable Primary Care Provider Unavailabl e Encounter Details Date Type Department Care Team (Late st Contact Info) Description 08/08/2024 Abstract [facility] [address] [facility] [place] [phone] Alexander Winn [address] [place], [place] [id number] Social History Tobacco Use Types Packs/Day Years [...] AM EDT Routine [facility] [address] [place] [phone] Alexander Winn [address] [place], [place] [id number] documented as of this encounter Goals Goal Patient Goal Type Associated Problems Recent Progress Patient-Stated? Author Reminders Care Plan OB Reminders No Open Scheduling, Background documented as of this encounter Visit Diagnoses Not on filedocumented in this encounter Additional Health Concerns Active Problems Noted Date Diagnosed Date OB Reminders 05/01/2024 documented as of this encounter
--- OUTSIDE RECORDS SUMMARY | 2024-11-21 14:48 | XMS_ITS | Encounter Summary ---
Author Organization [facility] Address [address] [facility] [place] [address] Care Team Providers Care Guide Foreign Tour Name Role Phone Unavailable Primary Care Provider Unavailabl e Encounter Details Date Type Department Care Team (Late st Contact Info) Description 07/10/2024 Abstract [facility] [address] [place] [phone] Alexander Winn [address] [place], [place] [id number] Social History Tobacco Use Types Packs/Day Years [...] AM EDT Routine [facility] [address] [place] [phone] Alexander Winn [address] [place], [place] [id number] documented as of this encounter Goals Goal Patient Goal Type Associated Problems Recent Progress Patient-Stated? Author Reminders Care Plan OB Reminders No Open Scheduling, Background documented as of this encounter Visit Diagnoses Not on filedocumented in this encounter Additional Health Concerns Active Problems Noted Date Diagnosed Date OB Reminders 05/01/2024 documented as of this encounter
--- OUTSIDE RECORDS SUMMARY | 2024-11-21 14:49 | XMS_ITS | Encounter Summary ---
Author Organization [facility] Address [address] [facility] [place] [address] Care Team Providers Care Spindle Carver Name Role Phone Unavailable Primary Care Provider Unavailabl e Encounter Details Date Type Department Care Team (Late st Contact Info) Description 04/30/2024 Abstract [facility] [address] [facility] [place] [address] [address] [place], [facility] Social History Tobacco Use Types Packs/Day Years [...] Description 11/28/2024 11:20 AM EDT Routine [facility] [address] [place] [address] Alexander Winn, [address] [place], [facility] documented as of this encounter Visit Diagnoses Not on filedocumented in this encounter
--- OUTSIDE RECORDS SUMMARY | 2024-11-21 14:49 | XMS_ITS | Clinical Summary ---
Author Organization [facility] Address [address] [place] [address] Care Team Providers Care Sales Incentive Analyst Name Role Phone Unavailable Primary Care Provider Unavailabl e Allergies No known active allergies Medications Vit w/Fq-Ffxnslslj-KW (PNV PO) Take by mouth Active metoclopramide (Reglan) 10 MG tabletIndications:Na usea and vomiting in ([facility]) Take 1 tablet (10 mg) by mouth in the morning and 1 tablet (10 mg) at noon and 1 tablet (10 mg) in the evening. Take before meals. Take 1 tablet by mouth 30 minutes prior to meals 3 times daily as needed for nausea.. 90 tablet 5 Active iron polysaccharides (ProFe) 391.3 (180 Fe) MG capsuleIndications:A nemia affecting in third trimester ([facility]) Take 1 capsule (391.3 mg) by mouth Daily 30 capsule 6 5 11/24/19 25 Active Active Problems Problem Noted Date Diagnosed Date 31 weeks gestation of ([facility]) 2024 Third trimester ([facility]) 10/23/2024 10 weeks gestation of ([facility]) 2024 First trimester ([facility]) 05/31/2024 Estimated Date of Delivery Comme nts Yes 12/21/2024 Based on Ultraso und Encounters Date Type Department Care Team Description 11/21/2024 11:30 AM EDT Routine [facility] [address] [place] [address] [place] [address] Alexander Winn DO Third trimester ([facility]); 35 weeks gestation of ([facility]); Anemia affecting in third trimester ([facility]) 11/21/2024 Bamboo flowsheet [facility] [address] [place] [address] [place] [address] Alexander Winn, DO 2024 11:20 AM EDT Routine [facility] [address] [place] [address] [place] [address] Alexander Winn, DO Third trimester ([facility]); 33 weeks gestation of ([facility]) 2024 Bamboo flowsheet [facility] [address] [place] [address] [place] [address] Alexander Winn, DO 10/24/[address] [address] [place] [address] Alexander Winn, DO 10/24/[address] [facility] [address] [place] [address] Alexander Winn, DO 10/23/2024 11:30 AM EDT Routine [facility] [address] [place] [address] [place] [address] Gloria Lloyd PA 31 weeks gestation of ([facility]); Third trimester ([facility]) 10/23/2024 11:00 AM EDT Ancillary Procedure [facility] [address] [place] [address] Excessive growth affecting management of , antepartum, single or unspecified fetus ([facility]) 10/23/2024 External Result Encounter [facility] External Department Unsolicited Alexander Winn, 10/09/2024 11:10 AM EDT Routine [facility] [address] [place] [address] Alexander Winn, Third trimester ([facility]); 29 weeks gestation of ([facility]); Excessive growth affecting management of , antepartum, single or unspecified fetus ([facility]); Diabetes mellitus screening; Subchorionic hemorrhage of placenta in second trimester ([facility]) 10/09/2024 Bamboo flowsheet [facility] [address] [place] [id number] Alexander Winn DO 09/14/[address] [facility] [address] [place] [address] [phone] Alexander Winn, 09/12/2024 11:30 AM EDT Routine [facility] [address] [place] [address] Diane Moore, RUBÉN Second trimester ([facility]); 25 weeks gestation of ([facility]); Diabetes mellitus screening 09/12/[address] [address] [place] [address] Kristi Malave LPN 09/12/2024 Bamboo flowsheet [facility] [address] [place] [address] Diane Moore, RUBÉN 09/04/[address] [facility] [address] [place] [address] Alexander Winn DO 09/04/2024 External Result Encounter [facility] [address] [place] [address] Alexander Winn DO from Last 3 Months Social History Tobacco Use Types Packs/Day Years Used Date Smoking Tobacco: Never Assessed Estimated Date of Delivery Comme nts Yes 12/21/2024 Based on Ultraso und Sex and Gender Information Value Date Recorded Sex Assigned at Not on file Legal Sex Female 11:47 PM EDT Gender Identity Not on file Sexual Orientation Not on file Last Filed Vital Signs Vital Sign Reading Time Taken Comments Blood Pressure 118/72 11/21/2024 11:34 AM EDT Pulse - - Temperature - - Respiratory Rate - - Oxygen Saturation - - Inhaled Oxygen Concentration - - Weight 99.7 kg (219 lb 12.8 oz) 025 11:34 AM EDT Height 162.6 cm (5' 4 ) 04/30/2024 11:2 2 AM EST Body Mass Index 37.73 04/30/2024 11:22 AM EST Plan of Treatment Upcoming Encounters Date Type Department Care Team (Late st Contact Info) Description 11/28/2024 11:20 AM EDT Routine [facility] [address] [facility] [place] [phone] Alexander Winn, DO [address] [facility] [place] [address] Health Maintenance Due Date Last Done Comments Influenza Vaccine (#1) 2025 Goals Goal Patient Goal Type Associated Problems Recent Progress Patient-Stated? Author Reminders Care Plan OB Reminders No Open Scheduling, Background Procedures Procedure Name Priority Date/Time Associated Diagnosis Comments POCT URINALYSIS DIPSTICK Routine 11/21/2024 11:43 AM EDT Third trimester ([facility]) 35 weeks gestation of ([facility]) POCT URINALYSIS DIPSTICK Routine 2024 11:42 AM EDT Third trimester ([facility]) HEMOGLOBIN A1C Routine 10/23/2024 3:02 PM EDT CBC WITH AUTO DIFFERENTIAL Routine 10/23/2024 3:02 PM EDT POCT URINALYSIS DIPSTICK Routine 10/23/2024 12:07 PM EDT 31 weeks gestation of ([facility]) Third trimester ([facility]) US OB FOLLOW UP TRANSABDOMINAL APPROACH Routine 10/23/2024 11:55 AM EDT Excessive growth affecting management of , antepartum, single or unspecified fetus ([facility]) POCT URINALYSIS DIPSTICK Routine 10/09/2024 11:17 AM EDT Third trimester ([facility]) US OB LIMITED 1+ FETUSES 09/12/2024 2:55 PM EDT POCT URINALYSIS DIPSTICK Routine 09/12/2024 11:41 AM EDT Second trimester ([facility]) from Last 3 Months Results * (ABNORMAL) POCT urinalysis dipstick manually resulted (11/21/2024 11:43 AM EDT) Only the most recent of5 resultswithin the time period is included. Color, UA Yellow Clarity, UA Clear Glucose, [...] CARE TEST ENTER/EDIT OR DERABLES Final Result * (ABNORMAL) CBC auto differential (10/23/2024 3:02 PM EDT) WHITE BLOOD CELL COUNT, WBC 7.1 4 - 11 x10E9/L [facility] RED BLOOD CELL COUNT, RBC 3.61(L) 3.8 - 5.2 X10E12/L [facility] HEMOGLOBIN 10.0(L) 11.7 - 15.5 g/dL [facility] HEMATOCRIT 29.6(L) 35 - 47 % [facility] MEAN CELL VOLUME, MCV 82 80 - 100 fL [facility] MEAN CELL HEMOGLOBIN, MCH 27.7 27 - 34 pg [facility] MEAN CELL HEMOGLOGIN CONCENTRATION, MCHC 33.8 32 - 36 g/dL [facility] RED CELL DISTRIBUTION WIDTH, RDW 14.8 11.5 - 15 % [facility] PLATELET COUNT 241 150 - 450 X10E9/L [facility] MEAN PLATELET VOLUME, MPV 8.0 7 - 12 fL [facility] METAMYELOCYTE 1 % [facility] Comment:This is an appended report. These results have been appended to a previously preliminary verified report. BAND 2 % [facility] Comment:This is an appended report. These results have been appended to a previously preliminary verified report. CELLAVISION NEUTROPHILS RELATIVE PERCENT BY MANUAL COUNT 73 % [facility] Comment:This is an appended report. These results have been appended to a previously preliminary verified report. CELLAVISION LYMPHOCYTES RELATIVE PERCENT BY MANUAL COUNT 16 % [facility] Comment:This is an appended report. These results have been appended to a previously preliminary verified report. CELLAVISION MONOCYTES RELATIVE PERCENT BY MANUAL COUNT 5 % [facility] Comment:This is an appended report. These results have been appended to a previously preliminary verified report. CELLAVISION EOSINOPHILS PERCENT BY MANUAL COUNT 2 % [facility] Comment:This is an appended report. These results have been appended to a previously preliminary verified report. CELLAVISION BASOPHILS RELATIVE PERCENT BY MANUAL COUNT 1 % [facility] Comment:This is an appended report. These results have been appended to a previously preliminary verified report. CELLAVISION NEUTROPHILS ABSOLUTE COUNT BY MANUAL COUNT 5.3 1.5 - 6.6 10*3/uL [facility] Comment:This is an appended report. These results have been appended to a previously preliminary verified report. CELLAVISION LYMPHOCYTES ABSOLUTE COUNT (10*3/UL) BY MANUAL COUNT 1.1 1.0 - 3.5 10*3/uL [facility] Comment:This is an appended report. These results have been appended to a previously preliminary verified report. CELLAVISION MONOCYTES ABSOLUTE COUNT (10*3/UL) IN BLOOD BY MANUAL COUNT 0.4 0.0 - 0.9 10*3/uL [facility] Comment:This is an appended report. These results have been appended to a previously preliminary verified report. CELLAVISION EOSINOPHILS ABSOLUTE COUNT (10*3/UL) BY MANUAL COUNT 0.1 0.0 - 0.4 10*3/uL [facility] Comment:This is an appended report. These results have been appended to a previously preliminary verified report. CELLAVISION BASOPHILS ABSOLUTE COUNT (10*3/UL) BY MANUAL COUNT 0.1 0.0 - 0.2 10*3/uL [facility] Comment:This is an appended report. These results have been appended to a previously preliminary verified report. RBC MORPHOLOGY Normal [facility] Comment:This is an appended report. These results have been appended to a previously preliminary verified report. DIFFERENTIAL TYPE MANUAL DIFFERENTIAL [facility] Comment: This is an appended report. These results have been appended to a previously preliminary verified report. PERFORMED AT [address], [place] [address] 10/23/2024 3:02 PM EDT 10/23/2024 5:36 PM EDT [employer] DO LAB BLOOD ORDERABLES Final Resul t Performing Organization Address [facility] Co de Phone Number [facility] * Hemoglobin A1c (10/23/2024 3:02 PM EDT) Pathologist [facility] HEMOGLOBIN A1C 5.1 4.4 - 5.6 % [facility] Comment: ADA Guidelines Result HgbA1c Normal : less than 5.7 % Prediabetes : 5.7 % to 6.4 % Diabetes : > 6.4 % Use with caution in patients with abnormal hemoglobin variants as the half-life of red blood cells and in vivo glycation rates are affected. AVERAGE GLUCOSE 100 mg/dL [facility] Comment: PERFORMED AT [address],[place] [address] 10/23/2024 3:02 PM EDT 10/23/2024 5:36 PM EDT us Alexander Pa DO LAB BLOOD ORDERABLES Final Resul t Performing Organization Address [facility] Co de Phone Number [facility] * US OB follow up transabdominal approach (10/23/2024 11:55 AM EDT) Anatomical Region Laterality Modality Body Ultrasound 10/25/2024 8:51 AM EDT Narrative 10/25/2024 8:51 AM EDT EXAM: US OB FOLLOW UP TRANSABDOMINAL APPROACH HISTORY: Large for gestational age. COMPARISON: Ob ultrasound 08/06/2024. TECHNIQUE: Two-dimensional transabdominal grayscale ultrasound imaging of the pelvis was performed. FINDINGS: Gestation: Single Presentation: Cephalic Cardiac Activity: 161 beats per minute Amniotic Fluid Index: 10.9 cm MEASUREMENTS: BPD: 7.7 cm EGA: 31 weeks 0 days HC: 28.6 cm EGA: 31 weeks 3 days AC: 28.2 cm EGA: 32 weeks 2 days FL: 6.3 cm EGA: 32 weeks 4 days HC/AC Ratio: 1.01 The gestational age by today's ultrasound is 31 weeks 6 days (+/- 16 days gestation). Estimated Weight: 1914 grams, +/- 287 grams ( 4 lb 4 oz). Weight Percentile for gestational age: 58 % IMPRESSION: 1. Single, live intrauterine gestation 31 weeks, 4 days by LMP. Today's ultrasound measurements correlate with a gestational age of 31 weeks 6 days. Estimated weight is 1914 grams, +/- 287 grams ( 4 lb 4 oz) which correlates to 58 %. DELLA is 12/19/2024. Interpreted by: Electronically signed by SANDI RODRIGUEZ II, MD, PHD at 25-Oct-2024 08:49:34 AM [facility] Procedure Note Sandi Rodriguez MD - 10/25/2024 EXAM: US OB FOLLOW UP TRANSABDOMINAL APPROACH HISTORY: Large for gestational age. COMPARISON: Ob ultrasound 08/06/2024. TECHNIQUE: Two-dimensional transabdominal grayscale ultrasound imaging ofthe pelvis was performed. FINDINGS: Gestation: Single Presentation: Cephalic Cardiac Activity: 161 beats per minute Amniotic Fluid Index: 10.9 cm MEASUREMENTS: BPD: 7.7 cm EGA: 31 weeks 0 days HC: 28.6 cm EGA: 31 weeks 3 days AC: 28.2 cm EGA: 32 weeks 2 days FL: 6.3 cm EGA: 32 weeks 4 days HC/AC Ratio: 1.01 The gestational age by today's ultrasound is 31 weeks 6 days (+/- 16 daysgestation). Estimated Weight: 1914 grams, +/- 287 grams ( 4 lb 4 oz). Weight Percentile for gestational age: 58 % IMPRESSION: 1. Single, live intrauterine gestation 31 weeks, 4 days by LMP. Today'sultrasound measurements correlate with a gestational age of 31 weeks 6days. Estimated weight is 1914 grams, +/- 287 grams ( 4 lb 4 oz)which correlates to 58 %. DELLA is 12/19/2024. Interpreted by: Electronically signed by SANDI RODRIGUEZ II, MD, PHD [id number] 08:49:34 AM [facility] us Alexander Pa DO IMG OB US PROCEDURES Final Resul t * US OB limited 1+ fetuses (09/12/2024 2:55 PM EDT) Anatomical Region Laterality Modality Body Ultrasound 09/12/2024 2:55 PM EDT Narrative 09/04/2024 11:07 AM EDT THIS EXAM WAS PERFORMED AT [facility] *ADDENDUM*Addendum: Specific measurement for DDP/ROSALES was not obtained by the technologist.. Subjectively the ROSALES is normal. If a specific measurement is required then patient should return for specific measurements. Finalized by Kt Lennon MD on 09/12/2024 2:54 PM Clinical history: ROSALES determination Multiplanar sonography was performed of the pelvis for purposes of evaluating position and amniotic fluid. Findings/Impression: * Heart rate: 148 bpm * Amniotic fluid volume: Subjectively normal * Placenta: Posterior . No retroplacental fluid collection identified. * position: Cephalic Finalized by Kt Lennon MD on 09/04/2024 11:07 AM Procedure Note Radiology, Radiologist, MD - 09/12/2024 THIS EXAM WAS PERFORMED AT [facility] *ADDENDUM*Addendum: Specific measurement for DDP/ROSALES was not obtained by the technologist..Subjectively the ROSALES is normal. If a specific measurement is required thenpatient should return for specific measurements. Finalized by Kt Lennon MD on 09/12/2024 2:54 PM Clinical history: ROSALES determination Multiplanar sonography was performed of the pelvis for purposes ofevaluating position and amniotic fluid. Findings/Impression: * Heart rate: 148 bpm * Amniotic fluid volume: Subjectively normal * Placenta: Posterior . No retroplacental fluid collection identified. * position: Cephalic Finalized by Kt Lennon MD on 09/04/2024 11:07 AM us Alexander Pa DO IMG OB US PROCEDURES Edited Resu lt - Final from Last 3 Months Additional Health Concerns Active Problems Noted Date Diagnosed Date OB Reminders 05/01/[address] [place] [address] MEDICAID [place]
--- OUTSIDE RECORDS SUMMARY | 2024-11-21 14:49 | XMS_ITS | Clinical Summary ---
Author Organization [facility] tem Address [id number] [address] [place] [address] Care Team Providers Care Pulpwood Dealer Name Role Phone Services, [facility] Primary Care Provider Allergies No known active allergies Medications [id number] 29-1-400 mg combo pack,tablet & cap,DR Take by mouth. Active Encounters Date Type Department Care Team Description 10/23/2024 Travel 09/04/2024 8:53 AM EDT - 09/04/2024 11:59 PM EDT Hospital Encounter [facility] - Ultrasound [address] [place] [phone] Subchorionic hemorrhage of placenta in second trimester Discharge Disposition: Home 09/04/2024 Travel from Last 3 Months Social History Tobacco Use Types Packs/Day Years Used Date Smoking Tobacco: Never Assessed Childcare Answer Date Recorded Childcare Unknown 11/01/2018 Employment Answer Date Recorded Employment Unknown 11/01/2018 Hunger Screening Answer Date Recorded Within the past 12 months we worried whether our food would run out before we got money to buy more. Never True 07/27/2024 Within the past 12 months th e food we bought just didn't last and we didn't have money to get more. Never True 07/27/2024 Estimated Date of Delivery Comme nts Yes 12/21/2024 Sex and Gender Information Value Date Recorded Sex Assigned at Not on file Legal Sex Female 11:59 AM EDT Gender Identity Not on file Sexual Orientation Not on file Last Filed Vital Signs Vital Sign Reading Time Taken Comments Blood Pressure 127/57 07/27/2024 2:28 PM EST Pulse 81 07/27/2024 2:28 PM EST Temperature 36.6 C (97.9 F) 07/27/2024 2:28 PM EST Respiratory Rate 16 07/27/2024 2:28 PM EST Oxygen Saturation 100% 07/27/2024 2:28 PM EST Inhaled Oxygen Concentration - - Weight - - Height - - Body Mass Index - - Plan of Treatment Health Maintenance Due Date Last Done Comments Depression Screening 2013 Tobacco Screening 2013 Adult BMI Screening 11/08/2019 DTaP,Tdap and Td Vaccines (6 - Td or Tdap) 10/10/2023 10/09/2013, 08/22/2006, 07/23/2003, Additional history exists Influenza Vaccine 01/21/2025 03/26/2015, 05/10/2002 Pap Smear 07/02/2027 07/02/2024 Medical Devices Not on file Procedures Procedure Name Priority Date/Time Associated Diagnosis Comments HEMOGLOBIN A1C Routine 10/23/2024 3:02 PM EDT 29 weeks gestation of Encounter for supervision of normal , unspecified, third trimester Maternal care for excessive growth, unspecified trimester, not applicable or unspecified Encounter for screening for diabetes mellitus Other antepartum hemorrhage, second trimester CBC WITH AUTO DIFFERENTIAL Routine 10/23/2024 3:02 PM EDT 29 weeks gestation of Encounter for supervision of normal , unspecified, third trimester Maternal care for excessive growth, unspecified trimester, not applicable or unspecified Encounter for screening for diabetes mellitus Other antepartum hemorrhage, second trimester US PREG LMTD 1 OR MORE FETUS Routine 09/04/2024 9:15 AM EDT Subchorionic hemorrhage of placenta in second trimester from Last 3 Months Results * (ABNORMAL) CBC auto differential (10/23/2024 3:02 PM EDT) WBC 7.1 4 - 11 x10E9/L 10/23/2024 6:29 PM EDT [facility] RBC Count 3.61(L) 3.8 - 5.2 X10E12/L 10/23/2024 6:29 PM EDT [facility] Hemoglobin 10.0(L) 11.7 - 15.5 g/dL 10/23/2024 6:29 PM EDT [facility] Hematocrit 29.6(L) 35 - 47 % 10/23/2024 6:29 PM EDT [facility] MCV 82 80 - 100 fL 10/23/2024 6:29 PM EDT [facility] MCH 27.7 27 - 34 pg 10/23/2024 6:29 PM EDT [facility] MCHC 33.8 32 - 36 g/dL 10/23/2024 6:29 PM EDT [facility] RDW 14.8 11.5 - 15 % 10/23/2024 6:29 PM EDT [facility] Platelet Count 241 150 - 450 X10E9/L 10/23/2024 6:29 PM EDT [facility] MPV 8.0 7 - 12 fL 10/23/2024 6:29 PM EDT [facility] Metamyelocytes % 1 % 10/24/19 25 6:29 PM EDT [facility] Comment:This is an appended report. These results have been appended to a previously preliminary verified report. Bands % 2 % 10/23/2024 6:29 PM EDT [facility] Comment:This is an appended report. These results have been appended to a previously preliminary verified report. Neutrophils % 73 % 10/23/2024 6:29 PM EDT [facility] Comment:This is an appended report. These results have been appended to a previously preliminary verified report. Lymphocytes % 16 % 10/23/2024 6:29 PM EDT [facility] Comment:This is an appended report. These results have been appended to a previously preliminary verified report. Monocytes % 5 % 10/23/2024 6:29 PM EDT [facility] Comment:This is an appended report. These results have been appended to a previously preliminary verified report. Eosinophils % 2 % 10/23/2024 6:29 PM EDT [facility] Comment:This is an appended report. These results have been appended to a previously preliminary verified report. Basophils % 1 % 10/23/2024 6:29 PM EDT [facility] Comment:This is an appended report. These results have been appended to a previously preliminary verified report. Neutrophils Absolute (M) 5.3 1.5 - 6.6 10*3/uL 10/23/2024 6:29 PM EDT [facility] Comment:This is an appended report. These results have been appended to a previously preliminary verified report. Lymphocytes Absolute 1.1 1.0 - 3.5 10*3/uL 10/23/2024 6:29 PM EDT [facility] Comment:This is an appended report. These results have been appended to a previously preliminary verified report. Monocytes Absolute 0.4 0.0 - 0.9 10*3/uL 10/23/2024 6:29 PM EDT [facility] Comment:This is an appended report. These results have been appended to a previously preliminary verified report. Eosinophils Absolute 0.1 0.0 - 0.4 10*3/uL 10/23/2024 6:29 PM EDT [facility] Comment:This is an appended report. These results have been appended to a previously preliminary verified report. Basophils Absolute 0.1 0.0 - 0.2 10*3/uL 10/23/2024 6:29 PM EDT [facility] Comment:This is an appended report. These results have been appended to a previously preliminary verified report. RBC Morphology Normal 10/23/2024 6:29 PM EDT [facility] Comment:This is an appended report. These results have been appended to a previously preliminary verified report. Differential Type MANUAL DIFFERENTIAL 10/23/2024 6:29 PM EDT [facility] Comment:This is an appended report. These results have been appended to a previously preliminary verified report. Blood Venous blood / Unknown Venipuncture / Unknown 10/23/2024 3:02 PM EDT 10/23/2024 3:02 PM EDT us Alexander Winn DO LAB BLOOD ORDERABLES Final Resu lt [facility] [address] [place] [address], * Hemoglobin A1c (10/23/2024 3:02 PM EDT) HEMOGLOBIN A1C 5.1 4.4 - 5.6 % 10/23/2024 6:53 PM EDT [facility] Comment: ADA Guidelines Result HgbA1c Normal : less than 5.7 % Prediabetes : 5.7 % to 6.4 % Diabetes : > 6.4 % Use with caution in patients with abnormal hemoglobin variants as the half-life of red blood cells and in vivo glycation rates are affected. EST. AVERAGE GLUCOSE 100 mg/dL 10/23/2024 6:53 PM EDT [facility] Blood Venous blood / Unknown Venipuncture / Unknown 10/23/2024 3:02 PM EDT 10/23/2024 3:02 PM EDT us Alexander R Pa DO LAB BLOOD ORDERABLES Final Resu lt [facility] [address] [place] [address], * Ultrasound limited 1 or more fetus (09/04/2024 9:15 AM EDT) Anatomical Region Laterality Modality OB-EMPLOYMENT PROGRAM REPRESENTATIVE Ultrasound 09/04/2024 11:0 6 AM EDT Addenda Addendum by Kt Lennon MD on 09/12/2024 2:54 PM EDT *ADDENDUM*Addendum: Specific measurement for DDP/ROSALES was not obtained by the technologist.. Subjectively the ROSALES is normal. If a specific measurement is required then patient should return for specific measurements. Finalized by Kt Lennon MD on 09/12/2024 2:54 PM Narrative 09/04/2024 11:07 AM EDT Clinical history: ROSALES determination Multiplanar sonography was performed of the pelvis for purposes of evaluating position and amniotic fluid. Findings/Impression: * Heart rate: 148 bpm * Amniotic fluid volume: Subjectively normal * Placenta: Posterior . No retroplacental fluid collection identified. * position: Cephalic Finalized by Kt Lennon MD on 09/04/2024 11:07 AM Procedure Note Kt Lennon MD - 09/04/2024 Clinical history: ROSALES determination Multiplanar sonography was performed of the pelvis for purposes ofevaluating position and amniotic fluid. Findings/Impression: * Heart rate: 148 bpm * Amniotic fluid volume: Subjectively normal * Placenta: Posterior . No retroplacental fluid collection identified. * position: Cephalic Finalized by Kt Lennon MD on 09/04/2024 11:07 AM us Alexander Winn DO IMG US ORDERABLES Edited Result - Final from Last 3 Months Insurance [facility] MEDICAID Care Teams Pulpwood Dealer Relationship Specialty Start Date End Date Services, [facility] [address] [place], [place] PCP - General Family Medicine 07/27/24
--- OUTSIDE RECORDS SUMMARY | 2024-11-21 14:49 | XMS_ITS | Encounter Summary ---
Author Organization [facility] Address [address] [facility] [place] [address] Care Team Providers Care Engraver Apprentice Decorative Name Role Phone Unavailable Primary Care Provider Unavailabl e Encounter Details Date Type Department Care Team (Late st Contact Info) Description 09/04/2024 External Result Encounter [facility] OB [address] [facility] [place] [address] Alexander Winn [address] [place], [place] [id number] Social History Tobacco Use Types Packs/Day Years [...] 11:20 AM EDT Routine [facility] OB [address] [place] [address] [place] [address] Alexander Winn [address] [place], [facility] documented as of this encounter Goals Goal Patient Goal Type Associated Problems Recent Progress Patient-Stated? Author Reminders Care Plan OB Reminders No Open Scheduling, Background documented as of this encounter Procedures Procedure Name Priority Date/Time Associated Diagnosis Comments US OB LIMITED 1+ FETUSES 09/12/2024 2:55 PM EDT documented in this encounter Results * US OB limited 1+ fetuses (09/12/2024 2:55 PM EDT) Anatomical Region Laterality Modality Body Ultrasound 09/12/2024 2:55 PM EDT Narrative 09/04/2024 11:07 AM EDT THIS EXAM WAS PERFORMED AT [place] *ADDENDUM*Addendum: Specific measurement for DDP/ROSALES was not [...] - 09/12/2024 THIS EXAM WAS PERFORMED AT [place] *ADDENDUM*Addendum: Specific measurement for DDP/ROSALES was not [...] US PROCEDURES Edited Resu lt - Final documented in this encounter Visit Diagnoses Not on filedocumented in this encounter Additional Health Concerns Active Problems Noted Date Diagnosed Date OB Reminders 05/01/2024 documented as of this encounter
--- OUTSIDE RECORDS SUMMARY | 2024-11-21 14:49 | XMS_ITS | Encounter Summary ---
Author Organization [facility] Address [address] [facility] [place] [address] Care Team Providers Care Electric Meter Repairer Apprentice Name Role Phone Unavailable Primary Care Provider Unavailabl e Encounter Details Date Type Department Care Team (Late st Contact Info) Description 08/13/2024 Abstract [facility] BCP OB [address] [facility] [place] [phone] Alexander Winn [address] [place], [place] [id number] Social History Tobacco Use Types Packs/Day Years [...] AM EDT Routine [facility] BCP OB [address] [facility] [place] [phone] Alexander Winn [address] [place], [place] [id number] documented as of this encounter Goals Goal Patient Goal Type Associated Problems Recent Progress Patient-Stated? Author Reminders Care Plan OB Reminders No Open Scheduling, Background documented as of this encounter Visit Diagnoses Not on filedocumented in this encounter Additional Health Concerns Active Problems Noted Date Diagnosed Date OB Reminders 05/01/2024 documented as of this encounter
--- OUTSIDE RECORDS SUMMARY | 2024-11-21 14:49 | XMS_ITS | Encounter Summary ---
Author Organization [facility] Address [address] [facility] [address] Care Team Providers Care Clinical Provider Trainer Name Role Phone Unavailable Primary Care Provider Unavailabl e Encounter Details Date Type Department Care Team (Late st Contact Info) Description 10/24/2024 Abstract [facility] B[facility] OB [address] [place] [address] [place] [phone] Alexander Winn [address] [place], [place] [phone] Social History Tobacco Use Types Packs/Day Years [...] AM EDT Routine [facility] B[facility] OB [address] [place] [address] Alexander Winn [address] [place], [place] [phone] documented as of this encounter Goals Goal Patient Goal Type Associated Problems Recent Progress Patient-Stated? Author Reminders Care Plan OB Reminders No Open Scheduling, Background documented as of this encounter Visit Diagnoses Not on filedocumented in this encounter Additional Health Concerns Active Problems Noted Date Diagnosed Date OB Reminders 05/01/2024 documented as of this encounter
--- OUTSIDE RECORDS SUMMARY | 2024-11-21 14:49 | XMS_ITS | Encounter Summary ---
Author Organization [facility] Address [address] [facility] [place] [address] Care Team Providers Care Arcgis Developer Name Role Phone Unavailable Primary Care Provider Unavailabl e Encounter Details Date Type Department Care Team (Late st Contact Info) Description 11/21/2024 Bamboo flowsheet [facility] OB [address] [facility] [address] Alexander Winn [address] [place], [facility] Social History Tobacco Use Types Packs/Day Years [...] AM EDT Routine [facility] BCP OB [address] [facility] [address] Alexander Winn [address] [place], [place] [phone] documented as of this encounter Goals Goal Patient Goal Type Associated Problems Recent Progress Patient-Stated? Author Reminders Care Plan OB Reminders No Open Scheduling, Background documented as of this encounter Visit Diagnoses Not on filedocumented in this encounter Additional Health Concerns Active Problems Noted Date Diagnosed Date OB Reminders 05/01/2024 documented as of this encounter
--- OUTSIDE RECORDS SUMMARY | 2024-11-21 14:49 | XMS_ITS | Encounter Summary ---
Author Organization [facility] Address [address] [facility] [place] [address] Care Team Providers Care Vanstone Machine Operator Name Role Phone Unavailable Primary Care Provider Unavailabl e Encounter Details Date Type Department Care Team (Late st Contact Info) Description 09/04/2024 Abstract [facility] BCP OB [address] [facility] [place] [phone] Alexander Winn [address] [place], [place] [phone] Social History Tobacco Use Types Packs/Day Years [...] AM EDT Routine [facility] B[facility] OB [address] [facility] [place] [phone] Alexander Winn [address] [place], [place] [phone] documented as of this encounter Goals Goal Patient Goal Type Associated Problems Recent Progress Patient-Stated? Author Reminders Care Plan OB Reminders No Open Scheduling, Background documented as of this encounter Visit Diagnoses Not on filedocumented in this encounter Additional Health Concerns Active Problems Noted Date Diagnosed Date OB Reminders 05/01/2024 documented as of this encounter
--- OUTSIDE RECORDS SUMMARY | 2024-11-21 14:49 | XMS_ITS | Encounter Summary ---
Author Organization [facility] Address [address] [facility] [place] [address] Care Team Providers Care Wet Sander Name Role Phone Unavailable Primary Care Provider Unavailabl e Encounter Details Date Type Department Care Team (Late st Contact Info) Description 05/01/2024 Clinisync Result Encounter [facility] External Department Unsolicited Roxanna Winn [facility] [place] [address] Social History Tobacco Use Types Packs/Day Years [...] AM EDT Routine [facility] BCP OB [address] [place] [address] Roxanna Winn DO [facility] [place] [address] documented as of this encounter Goals Goal Patient Goal Type Associated Problems Recent Progress Patient-Stated? Author Reminders Care Plan OB Reminders No Open Scheduling, Background documented as of this encounter Procedures Procedure Name Priority Date/Time Associated Diagnosis Comments US OB TRANSVAGINAL 05/01/2024 5: 22 AM EST documented in this encounter Results * US OB TRANSVAGINAL (05/01/2024 5:22 AM EST) Anatomical Region Laterality Modality Other 05/01/2024 5:22 AM EST Narrative 05/01/2024 5:25 [place] [address] Ultrasound Report Signed Patient: Sera Diaz MR#: [id number] : 2000 Acct:[id number] Age/Sex: 23 / F ADM Date: 04/30/24 Loc: [facility] Attending Dr: Roxanna Winn D.O. Ordering Physician: Roxanna Winn D.O. Date of Service: 04/30/24 Procedure(s): US OB transvaginal Accession Number(s): [id number] cc: Roxanna Winn D.O.; Physician,Non-Staff [place] [id number] Patient Name: SERA DIAZ MRN: [id number] date: 2000 Sex: F Assigned Patient Location: [facility] Current Patient Location: Accession/Order Number: [id number] Exam Date: 04/30/2024 10:27 Report Date: 05/01/2024 05:22 At the request of: ROXANNA WINN Procedure: US OB transvaginal EXAMINATION: US OB transvaginal HISTORY: MISSED MENSES COMPARISON: No relevant comparison available. FINDINGS: GESTATIONAL SAC: Present and normal appearing. YOLK SAC: Present and normal appearing. POLE: Present and normal appearing. CARDIAC: Present. UTERUS: Normal size and appearance. OVARIES: Right: Corpus lutein cyst. Left: Normal. CERVIX: 3.9 cm in length and closed. CUL-DE-SAC: Normal. OTHER: None. AGE BY LMP: 9 weeks 3 days DELLA BY LMP: 11/30/2024 AGE BY US CRL: 6 weeks 3 days DELLA BY US CRL: 12/21/2024 US/US OB transvaginal IMPRESSION: 1. Single live intrauterine . Electronically authenticated by: JULIAN GARCES Date: 05/01/2024 05:22 Dictated By: Julian Garces M.D. Signed By: 05/01/24524 DD/ 1 TD/TT: Side Guider: Procedure Note Radiology, Radiologist, MD - 05/01/2024 [place] [address] Ultrasound Report Signed Patient: Sera Diaz EMR#: [id number] : 2000Acct:[id number] Age/Sex: 23 / FADM Date: 04/30/24 Loc: [facility] Attending Dr: Roxanna Winn D.O. Ordering Physician: Roxanna Winn D.O. Date of Service: 04/30/24 Procedure(s): US OB transvaginal Accession Number(s): [id number] cc: Roxanna Winn D.O.; Physician,Non-Staff Zelda The [address] [address] Patient Name: SERA DIAZ MRN: [facility]:[id number] date: 2000 Sex: F Assigned Patient Location: [facility] Current Patient Location: Accession/Order Number: [id number] Exam Date: 04/30/2024 10:27 Report Date: 05/01/2024 05:22 At the request of: ROXANNA WINN Procedure: US OB transvaginal EXAMINATION: US OB transvaginal HISTORY: MISSED MENSES COMPARISON: No relevant comparison available. FINDINGS: GESTATIONAL SAC: Present and normal appearing. YOLK SAC: Present and normal appearing. POLE: Present and normal appearing. CARDIAC: Present. UTERUS: Normal size and appearance. OVARIES: Right: Corpus lutein cyst. Left: Normal. CERVIX: 3.9 cm in length and closed. CUL-DE-SAC: Normal. OTHER: None. AGE BY LMP: 9 weeks 3 days DELLA BY LMP: 11/30/2024 AGE BY US CRL: 6 weeks 3 days DELLA BY US CRL: 12/21/2024 US/US OB transvaginal IMPRESSION: 1. Single live intrauterine . Electronically authenticated by: JULIAN GARCES Date: 05/01/2024 05:22 Dictated By: Julian Garces M.D. Signed By:05/01/24524 DD/ 1 TD/TT: Side Guider: us Roxanna Winn DO [facility] Final Result documented in this encounter Visit Diagnoses Not on filedocumented in this encounter Additional Health Concerns Active Problems Noted Date Diagnosed Date OB Reminders 05/01/2024 documented as of this encounter
--- OUTSIDE RECORDS SUMMARY | 2024-11-21 14:49 | XMS_ITS | Encounter Summary ---
Author Organization [facility] Address [address] [facility] [place] [address] Care Team Providers Care Night Court Magistrate Name Role Phone Unavailable Primary Care Provider Unavailabl e Encounter Details Date Type Department Care Team (Late st Contact Info) Description 2024 Bamboo flowsheet [facility] BCP OB [address] [facility] [place] [address] Alexander Winn [address] [place], [facility]11 Social History Tobacco Use Types Packs/Day [...] AM EDT Routine [facility] BCP OB [address] [facility] [place] [address] Alexander Winn [address] [place], [place] [phone] documented as of this encounter Goals Goal Patient Goal Type Associated Problems Recent Progress Patient-Stated? Author Reminders Care Plan OB Reminders No Open Scheduling, Background documented as of this encounter Visit Diagnoses Not on filedocumented in this encounter Additional Health Concerns Active Problems Noted Date Diagnosed Date OB Reminders 05/01/2024 documented as of this encounter
--- OUTSIDE RECORDS SUMMARY | 2024-11-21 14:49 | XMS_ITS | Encounter Summary ---
Author Organization [facility] Address [address] [facility] [place] [address] Care Team Providers Care Supervisor Cured Meats Name Role Phone Unavailable Primary Care Provider Unavailabl e Encounter Details Date Type Department Care Team (Late st Contact Info) Description 09/14/2024 Abstract [facility] BCP OB [address] [place] [address] [place] [phone] Alexander Winn [address] [place], [place] [phone] Social History Tobacco Use Types Packs/Day Years [...] AM EDT Routine [facility] BCP OB [address] [facility] [place] [phone] Alexander Winn [address] [place], [place] [address] documented as of this encounter Goals Goal Patient Goal Type Associated Problems Recent Progress Patient-Stated? Author Reminders Care Plan OB Reminders No Open Scheduling, Background documented as of this encounter Visit Diagnoses Not on filedocumented in this encounter Additional Health Concerns Active Problems Noted Date Diagnosed Date OB Reminders 05/01/2024 documented as of this encounter
== END 2024-11-21 14:46 | disposition home or self-care (01) ==
LOC: LAB 14:45
PROVIDERS: Visit Provider Obstetrics & Gynecology
DX: Z34.93 Encounter for supervision of normal pregnancy, unspecified, third trimester (principal)
CPT/HCPCS: 87081; 87184

== ENCOUNTER 2024-12-14 04:53 | Inpatient (IN) | payer MEDICAID, SELFPAY ==
--- OUTSIDE RECORDS SUMMARY | 2024-12-05 14:40 | XMS_ITS | Encounter Summary ---
Author Organization [facility] Address [address] [facility] [place] [address] Care Team Providers Care Monkey Keeper Name Role Phone Unavailable Primary Care Provider Unavailabl e Reason for Visit * Reason Comments Routine Visit Encounter Details Date Type Department Care Team (Late st Contact Info) Description 12/05/2024 2:40 PM EDT Routine [facility] OB [address] [phone] Alexander Winn, DO [address] [place] [address] Third trimester ([facility]); 37 weeks gestation of ([facility]) Social History Tobacco Use [...] Sign Reading Time Taken Comments Blood Pressure 118/82 12/05/2024 2:47 PM EDT Pulse - - Temperature - - Respiratory Rate - - Oxygen Saturation - - Inhaled Oxygen Concentration - - Weight 99.8 kg (220 lb) 12/05/2024 2:47 PM EDT Height - - Body Mass Index 37.76 04/30/2024 11:22 AM EST documented in this encounter Progress Notes * Margarita Hsieh LPN - 12/05/2024 2:40 PM EDT Reason for Appointment: Patient ID: Sera Diaz is a 24 y.o. female who presents for Routine Visit Patient presents today for Return OB appointment. MEDICATIONS Current Outpatient Medications Medication Instructions metoclopramide (REGLAN) 10 mg, Oral, 3 times daily before meals, Take 1 tablet by mouth 30 minutes prior to meals 3 times daily as needed for nausea. Vit w/Af-Maypxlaxh-PW (PNV PO) Take by mouth ALLERGIES No [...] nursing note reviewed. Exam conducted with a lubrication servicer present. Vitals: Estimated body mass index is 37.76 kg/m?? as calculated from the following: Height as of 04/30/24: 5' 4 . Weight as of this encounter: 220 lb. BP: 118/82 Patient's last menstrual period was 02/24/2024. ASSESSMENT & PLAN ICD-10-CM 1. Third trimester ([facility]) Z34.93 POCT urinalysis dipstick manually resulted 2. 37 weeks gestation of ([facility]) Z3A.37 Return OB: Patient presents today for a routine obstetrics appointment. Patient is currently 37w5d . Patient states she is doing well but has complaints of being tired due to current . Patient has verbalizes frequent movement. labor precautions was discussed/given and patient was instructed to perform kick counts three times a day. Orders Placed This Encounter Procedures POCT urinalysis dipstick manually resulted Follow Up: Patient is to return to office in 1 week for routine OB appointment. Documented by Margarita Hsieh LPN on behalf of: Alexander Winn DO documented in this encounter Plan of Treatment Not on file documented as of this encounter Goals Goal Patient Goal Type Associated Problems Recent Progress Patient-Stated? Author Reminders Care Plan OB Reminders No Open Scheduling, Background documented as of this encounter Procedures Procedure Name Priority Date/Time Associated Diagnosis Comments POCT URINALYSIS DIPSTICK Routine 12/05/2024 2:55 PM EDT Third trimester ([facility]) documented in this encounter Results * (ABNORMAL) POCT urinalysis dipstick manually resulted (12/05/2024 2:55 PM EDT) Color, UA Yellow Clarity, UA Clear Glucose, UA Negative Negative - 1999(110) ++++ mg/dL Bilirubin, UA Negative Negative - 4(70) +++ mg/dL Ketones, UA Negative Negative - 160(16) ++++ mg/dL Spec Grav, UA 1.015 1 - 1.03 Blood, UA Negative Negative - 50 Balbir/mcL pH, UA 7.0 5 - 9 Protein, UA Negative Negative - 1999(20) ++++ mg/dL Urobilinogen, UA 0.2 0.2 - 12 mg/dL Leukocytes, UA Positive Negative - 500+++ Osbaldo/mcL Comment:small Nitrite, UA Negative Negative - Positive Urine 12/05/2024 2:55 PM EDT Alexander Winn DO POINT OF CARE TEST ENTER/EDIT OR DERABLES Final Result documented in this encounter Visit Diagnoses Diagnosis Third trimester ([facility]) state, incidental 37 weeks gestation of ([facility]) documented in this encounter Additional Health Concerns Active Problems Noted Date Diagnosed Date OB Reminders 05/01/2024 documented as of this encounter
--- OUTSIDE RECORDS SUMMARY | 2024-12-07 07:45 | XMS_ITS ---
Author Organization [facility] Address [address] [place] [id number] Care Team Providers Care Janitorial Tech Name Role Phone Lorena Ferreira [phone] REASON FOR VISIT Rest #18-O Amalgam, #19-O Social History Sex Assigned At : Social History Observation Description Sex Assigned At Female Encounters Encounter Location Date Provider Diagnosis [facility] [address] [place] [phone] 12/07/2024 Lorena Ferreira Plan Of Treatment Next Appt Details Provider Name:Anjel Borrego , 01/30/2025 10:15:00 AM, [address] [place] [address], [phone], Progress Notes * Sera DIAZ EDOB:[birth year] (24 yo F)Acc No.[id number]:12/07/2024 Patient: Arturo ADISSera Provider: Mary Ferreira DMD :2000 A ge:24 Y S ex:Female Date:12/07/2024 Address:[address] [place] [address], A PT E[id number] Subjective: * Chief Complaints: * 1 . Rest #18-O Amalgam, #19-O. * Medical History: Objective: * Vitals: Assessment: Plan: * Treatment: * Billing Information: * Visit Code: * Procedure Codes: * Electronic signature of Sita Ferreira DMD on 12/14/2024 at 04:56 AM EDT Sign off status: Pending * Provider: Mary Ferreira DMD Date: 0 12/07/2024 Generated for Gil villalpando/Zahira/Miguel on: 0 12/14/2024 04:56 AM EDT
--- OUTSIDE RECORDS SUMMARY | 2024-12-12 13:50 | XMS_ITS | Encounter Summary ---
Author Organization [facility] Address [address] [facility] [place] [address] Care Team Providers Care Computer Builder Name Role Phone Unavailable Primary Care Provider Unavailabl e Reason for Visit * Reason Comments Routine Visit Encounter Details Date Type Department Care Team (Late st Contact Info) Description 12/12/2024 1:50 PM EDT Routine [facility] OB [address] [place] [phone] Gloria Lloyd PA [address] [place], [place] [id number] 38 weeks gestation of ([facility]); Third trimester ([facility]); Anemia affecting in third trimester ([facility]); Excessive growth affecting management of , antepartum, single or unspecified fetus ([facility]) Social History Tobacco Use Types Packs/Day Years [...] Sign Reading Time Taken Comments Blood Pressure 120/82 12/12/2024 1:50 PM EDT Pulse - - Temperature - - Respiratory Rate - - Oxygen Saturation - - Inhaled Oxygen Concentration - - Weight 99.3 kg (219 lb) 12/12/2024 1:50 PM EDT Height - - Body Mass Index 37.59 04/30/2024 11:22 AM EST documented in this encounter Progress Notes * Diane Moore NP - 12/12/2024 1:50 PM EDT Reason for Appointment: Patient ID: Sera Diaz is a 24 y.o. female who presents for Routine Visit Patient presents today for Return OB appointment. MEDICATIONS Current Outpatient Medications Medication Instructions metoclopramide (REGLAN) 10 mg, Oral, 3 times daily before meals, Take 1 tablet by mouth 30 minutes prior to meals 3 times daily as needed for nausea. Vit w/Kb-Bumpacwpn-MX (PNV PO) Take by mouth ALLERGIES No Known Allergies PROBLEMS Active Ambulatory Problems Diagnosis Date Noted 10 weeks gestation of ([facility]) 05/31/2024 First trimester ([facility]) 05/31/2024 31 weeks gestation of ([facility]) 10/23/2024 Third trimester ([facility]) 10/23/2024 Resolved Ambulatory Problems Diagnosis Date Noted [...] nursing note reviewed. Exam conducted with a art professor present. Vitals: Estimated body mass index is 37.59 kg/m?? as calculated from the following: Height as of 04/30/24: 5' 4 . Weight as of this encounter: 219 lb. BP: 120/82 Patient's last menstrual period was 02/24/2024. ASSESSMENT & PLAN ICD-10-CM 1. 38 weeks gestation of ([facility]) Z3A.38 POCT urinalysis dipstick manually resulted 2. Third trimester ([facility]) Z34.93 POCT urinalysis dipstick manually resulted 3. Anemia affecting in third trimester ([facility]) O99.013 4. Excessive growth affecting management of , antepartum, single or unspecified fetus ([facility]) O36.60X0 Return OB: Patient presents today for a routine obstetrics appointment. Patient is currently 38w5d . Patient states she is doing well [...] week for routine OB appointment. Documented by Diane Moore NP on behalf of: ARPIT Garcia documented in this encounter Plan of Treatment Not on file documented as of this encounter Goals Goal Patient Goal Type Associated Problems Recent Progress Patient-Stated? Author Reminders Care Plan OB Reminders No Open Scheduling, Background documented as of this encounter Procedures Procedure Name Priority Date/Time Associated Diagnosis Comments POCT URINALYSIS DIPSTICK Routine 12/12/2024 1:57 PM EDT 38 weeks gestation of ([facility]) Third trimester ([facility]) documented in this encounter Results * (ABNORMAL) POCT urinalysis dipstick manually resulted (12/12/2024 1:57 PM EDT) Color, UA Yellow Clarity, UA Clear Glucose, UA Negative Negative - 2000(110) ++++ mg/dL Bilirubin, UA Negative Negative - 4(70) +++ mg/dL Ketones, UA Negative Negative - 160(16) ++++ mg/dL Spec Grav, UA 1.020 1 - 1.03 Blood, UA Negative Negative - 50 Balbir/mcL pH, UA 6.5 5 - 9 Protein, UA Negative Negative - 2000(20) ++++ mg/dL Urobilinogen, UA 0.2 0.2 - 12 mg/dL Leukocytes, UA Moderate Negative - 500+++ Osbaldo/mcL Nitrite, UA Negative Negative - Positive Urine 12/12/2024 1:57 PM EDT Gloria MUNSON POINT OF CARE TEST ENTER/EDIT OR DERABLES Final Result documented in this encounter Visit Diagnoses Diagnosis 38 weeks gestation of ([facility]) Third trimester ([facility]) state, incidental Anemia affecting in third trimester ([facility]) Excessive growth affecting management of , antepartum, single or unspecified fetus ([facility]) documented in this encounter Additional Health Concerns Active Problems Noted Date Diagnosed Date OB Reminders 05/01/2024 documented as of this encounter
[2024-12-14] VITALS (59 sets, daily range): BP systolic 99–148; BP diastolic 56–102; PULSE 71–166; TEMP 35.9–37.1
--- OUTSIDE RECORDS SUMMARY | 2024-12-14 04:57 | XMS_ITS ---
Author Organization [facility] Produ ction (ClinicalSummary Clone) Address Unknown Care Team Providers Care Radial Arm Saw Operator Name Role Phone Unavailable Primary Care Physician Unavailab le Results * [UNITY] ANEUPLOIDY NIPT Performed by: [employer] Component Value Range Date Fraction 11.8% 07/07/2024 06 :36 am UT Sex Chromosome Aneuploidy NOT DETECTED 06:36 am UT Monosomy X LOW RISK <1 in 10,000 2024 06:36 am UT Trisomy 13 LOW RISK <1 in 10,000 2024 06:36 am UT Trisomy 18 LOW RISK <1 in 10,000 2024 06:36 am UT Trisomy 21 LOW RISK <1 in 10,000 2024 06:36 am UT Sex MALE 07/07/2024 06:3 6 am UT Gestation SANTOS 07/07/19 06:36 am [facility] For detailed report, see PDF See PDF 07/07/2024 06:36 am UT 07/07/2024 06:3 6 am [facility] Social History Observation Value Start Date End Date
--- OUTSIDE RECORDS SUMMARY | 2024-12-14 04:57 | XMS_ITS | Encounter Summary ---
Author Organization [facility] Address [address] [facility] [place] [address] Care Team Providers Care Silverware Supervisor Name Role Phone Unavailable Primary Care Provider Unavailabl e Encounter Details Date Type Department Care Team (Late st Contact Info) Description 11/28/2024 Abstract [facility] OB [address] [place] [address] Marsha Poole [place] Social History Tobacco Use Types Packs/Day Years Used Date Smoking Tobacco: Never Assessed Estimated Date of Delivery Comme nts Yes 12/21/2024 Based on Ultraso und Sex and Gender Information Value Date Recorded Sex Assigned at Not on file Legal Sex Female 11:47 PM EDT Gender Identity Not on file Sexual Orientation Not on file documented as of this encounter Plan of Treatment Not on [...]
--- OUTSIDE RECORDS SUMMARY | 2024-12-14 04:57 | XMS_ITS | Encounter Summary ---
Author Organization [facility] Address [address] [facility] [place] [address] Care Team Providers Care Retail Pharmacy Manager Name Role Phone Unavailable Primary Care Provider Unavailabl e Encounter Details Date Type Department Care Team (Late st Contact Info) Description 04/30/2024 Abstract [facility] OB [address] [place] [place] [address] Alexander Winn, DO [address] [address] [place], [place] [phone] Social History Tobacco Use Types Packs/Day Years [...] on file documented as of this encounter Visit Diagnoses Not on filedocumented in this encounter
--- OUTSIDE RECORDS SUMMARY | 2024-12-14 04:57 | XMS_ITS | Encounter Summary ---
Author Organization [facility] Address [address] [facility] [place] [address] Care Team Providers Care Circuits Engineer Name Role Phone Unavailable Primary Care Provider Unavailabl e Encounter Details Date Type Department Care Team (Late st Contact Info) Description 10/24/2024 Abstract [facility] OB [address] [place] [phone] Alexander Winn, DO [address] [facility] [place] [address] Social History Tobacco Use Types Packs/Day Years [...]
--- OUTSIDE RECORDS SUMMARY | 2024-12-14 04:57 | XMS_ITS | Encounter Summary ---
Author Organization [facility] Address [address] [facility] [place] [address] Care Team Providers Care C Python Developer Name Role Phone Unavailable Primary Care Provider Unavailabl e Encounter Details Date Type Department Care Team (Late st Contact Info) Description 09/04/2024 Abstract [facility] OB [address] [place] [phone] Alexander Winn, DO [address] [facility] [place] [address] Social History Tobacco Use Types Packs/Day Years [...]
--- OUTSIDE RECORDS SUMMARY | 2024-12-14 04:57 | XMS_ITS | Encounter Summary ---
Author Organization [facility] Address [address] [facility] [place] [address] Care Team Providers Care Associate Sales Name Role Phone Unavailable Primary Care Provider Unavailabl e Encounter Details Date Type Department Care Team (Late st Contact Info) Description 12/12/2024 Bamboo flowsheet [facility] OB [address] [facility] [place] [phone] Gloria Lloyd PA [address] [facility] [place] [address] Social History Tobacco Use Types Packs/Day Years [...]
--- OUTSIDE RECORDS SUMMARY | 2024-12-14 04:57 | XMS_ITS | Encounter Summary ---
Author Organization [facility] Address [address] [facility] [place] [address] Care Team Providers Care Solid Plasterer Name Role Phone Unavailable Primary Care Provider Unavailabl e Encounter Details Date Type Department Care Team (Late st Contact Info) Description 07/19/2024 Orders Only [facility] OB [address] [place] [address] [place] [address] Social History Tobacco Use Types Packs/Day Years [...] AM EST) Swab Cervical swab / Unknown us Gloria M[facility]SON LAB CYTOLOGY ORDERABLES Final Re sult EXTERNAL LAB documented in this encounter Visit Diagnoses Not on filedocumented in this encounter Additional Health Concerns Active Problems Noted Date Diagnosed Date OB Reminders 05/01/2024 documented as of this encounter
--- OUTSIDE RECORDS SUMMARY | 2024-12-14 04:57 | XMS_ITS | Clinical Summary ---
Author Organization [facility] tem Address [id number] [address] [place] [address] Care Team Providers Care Stock Counter Name Role Phone Services, Replaced By [facility] Primary Care Provider Allergies No known active allergies Medications sulzfwzg35-duwv- folic-omega3 29-1-400 mg combo pack,tablet & cap,DR Take by mouth. Active Encounters Date Type Department Care Team Description 10/23/2024 Travel from Last 3 Months Social History [...] diabetes mellitus Other antepartum hemorrhage, second trimester from Last 3 Months Results * (ABNORMAL) CBC auto differential (10/23/2024 3:02 PM EDT) WBC 7.1 4 - 11 x10E9/L 10/23/2024 6:29 PM EDT [facility] RBC Count 3.61(L) 3.8 - 5.2 X10E12/L 10/23/2024 6:29 PM EDT [facility] Hemoglobin 10.0(L) 11.7 - 15.5 g/dL 10/23/2024 6:29 PM EDT [facility] Hematocrit 29.6(L) 35 - 47 % 10/23/2024 6:29 PM EDT [facility] MCV 82 80 - 100 fL 10/23/2024 6:29 PM EDT [facility] MCH 27.7 27 - 34 pg 10/23/2024 6:29 PM EDT [facility] MCHC 33.8 32 - 36 g/dL 10/23/2024 6:29 PM EDT [facility] RDW 14.8 11.5 - 15 % 10/23/2024 6:29 PM EDT [facility] Platelet Count 241 150 - 450 X10E9/L 10/23/2024 6:29 PM EDT [facility] MPV 8.0 7 - 12 fL 10/23/2024 6:29 PM EDT [facility] Metamyelocytes % 1 % 10/24/19 25 6:29 PM EDT [facility] Comment:This is an appended report. These results have been appended to a previously preliminary verified report. Bands % 2 % 10/23/2024 6:29 PM EDT [facility] Comment:This is an appended report. These results have been appended to a previously preliminary verified report. Neutrophils % 73 % 10/23/2024 6:29 PM EDT [facility] Comment:This is an appended report. These results have been appended to a previously preliminary verified report. Lymphocytes % 16 % 10/23/2024 6:29 PM EDT [facility] Comment:This is an appended report. These results have been appended to a previously preliminary verified report. Monocytes % 5 % 10/23/2024 6:29 PM EDT [facility] Comment:This is an appended report. These results have been appended to a previously preliminary verified report. Eosinophils % 2 % 10/23/2024 6:29 PM EDT [facility] Comment:This is an appended report. These results have been appended to a previously preliminary verified report. Basophils % 1 % 10/23/2024 6:29 PM EDT [facility] Comment:This is an appended report. These results have been appended to a previously preliminary verified report. Neutrophils Absolute (M) 5.3 1.5 - 6.6 10*3/uL 10/23/2024 6:29 PM EDT [facility] Comment:This is an appended report. These results have been appended to a previously preliminary verified report. Lymphocytes Absolute 1.1 1.0 - 3.5 10*3/uL 10/23/2024 6:29 PM EDT [facility] Comment:This is an appended report. These results have been appended to a previously preliminary verified report. Monocytes Absolute 0.4 0.0 - 0.9 10*3/uL 10/23/2024 6:29 PM EDT [facility] Comment:This is an appended report. These results have been appended to a previously preliminary verified report. Eosinophils Absolute 0.1 0.0 - 0.4 10*3/uL 10/23/2024 6:29 PM EDT [facility] Comment:This is an appended report. These results have been appended to a previously preliminary verified report. Basophils Absolute 0.1 0.0 - 0.2 10*3/uL 10/23/2024 6:29 PM EDT [facility] Comment:This is an appended report. These results have been appended to a previously preliminary verified report. RBC Morphology Normal 10/23/2024 6:29 PM EDT [facility] Comment:This is an appended report. These results have been appended to a previously preliminary verified report. Differential Type MANUAL DIFFERENTIAL 10/23/2024 6:29 PM EDT [facility] Comment:This is an appended report. These results have been appended to a previously preliminary verified report. Blood Venous blood / Unknown Venipuncture / Unknown 10/23/2024 3:02 PM EDT 10/23/2024 3:02 PM EDT us Alexander Winn DO LAB BLOOD ORDERABLES Final Resu lt [facility] [address] [place] [address], [place] [phone] * Hemoglobin A1c (10/23/2024 3:02 PM EDT) HEMOGLOBIN A1C 5.1 4.4 - 5.6 % 10/23/2024 6:53 PM EDT [facility] Comment: ADA Guidelines Result HgbA1c Normal : less than 5.7 % Prediabetes : 5.7 % to 6.4 % Diabetes : > 6.4 % Use with caution in patients with abnormal hemoglobin variants as the half-life of red blood cells and in vivo glycation rates are affected. EST. AVERAGE GLUCOSE 100 mg/dL 10/23/2024 6:53 PM EDT [facility] Blood Venous blood / Unknown Venipuncture / Unknown 10/23/2024 3:02 PM EDT 10/23/2024 3:02 PM EDT us Alexander Winn DO LAB BLOOD ORDERABLES Final Resu lt [facility] [address] [place] [address], [place] [phone] from Last 3 Months Insurance [facility] MEDICAID Care Teams Stock Counter Relationship Specialty Start Date End Date Services, Replaced By [facility] [address], [place] PCP - General Family Medicine 07/27/24
--- OUTSIDE RECORDS SUMMARY | 2024-12-14 04:57 | XMS_ITS | Encounter Summary ---
Author Organization [facility] Address [address] [place] [address] Care Team Providers Care Pharmacy Benefit Manager Name Role Phone Unavailable Primary Care Provider Unavailabl e Encounter Details Date Type Department Care Team (Late st Contact Info) Description 09/04/2024 External Result Encounter [facility] OB [address] [address] Alexander Winn DO [address] [facility] [address] [place], [place] [id number] Social History Tobacco Use Types Packs/Day Years [...] AM EDT THIS EXAM WAS PERFORMED AT [facility] *ADDENDUM*Addendum: Specific measurement for DDP/ROSALES was not [...] 09/04/2024 11:07 AM Procedure Note Radiology, Radiologist, - 09/12/2024 THIS EXAM WAS PERFORMED AT [facility] *ADDENDUM*Addendum: Specific measurement for DDP/ROSALES was not [...]
--- OUTSIDE RECORDS SUMMARY | 2024-12-14 04:57 | XMS_ITS | Encounter Summary ---
Author Organization [facility] Address [address] [place] [address] Care Team Providers Care Telesales Specialist Name Role Phone Unavailable Primary Care Provider Unavailabl e Encounter Details Date Type Department Care Team (Late st Contact Info) Description 05/01/2024 Clinisync Result Encounter [facility] External Department Unsolicited Roxanna Winn DO [address] [place] [address] Social History Tobacco Use Types Packs/Day Years [...] AM EST Narrative 05/01/2024 5:25 AM EST The [address] [address] Ultrasound Report Signed Patient: Sera Diaz MR#: [id number] : 2000 Acct:[id number] Age/Sex: 23 / F ADM Date: 04/30/24 Loc: [facility] Attending Dr: Roxanna Winn D.O. Ordering Physician: Roxanna Winn D.O. Date of Service: 04/30/24 Procedure(s): US OB transvaginal Accession Number(s): [id number] cc: Roxanna Winn D.O.; Physician,Non-Staff Zelda The [address] [address] Patient Name: SERA DIAZ MRN: [id number] date: 2000 Sex: F Assigned Patient Location: [facility] Current Patient Location: Accession/Order Number: [id number] Exam Date: 04/30/2024 10:27 Report Date: 05/01/2024 [...] M.D. Signed By: 05/01/24524 DD/ 1 TD/TT: Cylinder Block Hole Reliner: Procedure Note Radiology, Radiologist, - 05/01/[address] [address] Ultrasound Report Signed Patient: Sera Diaz EMR#: [id number] : 2000Acct:[id number] Age/Sex: 23 / FADM Date: 04/30/24 Loc: [facility] Attending Dr: Roxanna Winn D.O. Ordering Physician: Roxanna Winn D.O. Date of Service: 04/30/24 Procedure(s): US OB transvaginal Accession Number(s): [id number] cc: Roxanna Winn D.O.; Physician,Non-Staff Zelda [place] [address] Patient Name: SERA DIAZ MRN: [id number] date: 2000 Sex: F Assigned Patient Location: [facility] Current Patient Location: Accession/Order Number: [id number] Exam Date: 04/30/2024 10:27 Report Date: 05/01/2024 [...] Garces M.D. Signed By:05/01/24524 DD/ 1 TD/TT: Cylinder Block Hole Reliner: us Roxanna Winn DO [facility] Final Result documented in this encounter Visit Diagnoses Not on filedocumented in this encounter Additional Health Concerns Active Problems Noted Date Diagnosed Date OB Reminders 05/01/2024 documented as of this encounter
--- OUTSIDE RECORDS SUMMARY | 2024-12-14 04:57 | XMS_ITS | Encounter Summary ---
Author Organization [facility] Address [address] [facility] [place] [address] Care Team Providers Care Corporate Learning Consultant Name Role Phone Unavailable Primary Care Provider Unavailabl e Encounter Details Date Type Department Care Team (Late st Contact Info) Description 12/05/2024 Bamboo flowsheet [facility] [address] [place] [address] Alexander Winn, DO [address] [facility] [address] [place], [place] [id number] Social History Tobacco Use Types Packs/Day Years [...]
--- OUTSIDE RECORDS SUMMARY | 2024-12-14 04:57 | XMS_ITS | Encounter Summary ---
Author Organization [facility] Address [address] [facility] [place] [address] Care Team Providers Care Sustainable Agriculture Specialist Name Role Phone Unavailable Primary Care Provider Unavailabl e Encounter Details Date Type Department Care Team (Late st Contact Info) Description 08/13/2024 Abstract [facility] [address] [facility] [place] [id number] Alexander Winn, DO [address] [facility] [place] [address] Social History Tobacco Use Types Packs/Day Years [...]
--- OUTSIDE RECORDS SUMMARY | 2024-12-14 04:57 | XMS_ITS | Encounter Summary ---
Author Organization [facility] Address [address] [facility] [place] [address] Care Team Providers Care Brood Station Manager Name Role Phone Unavailable Primary Care Provider Unavailabl e Encounter Details Date Type Department Care Team (Late st Contact Info) Description 07/10/2024 Abstract [facility] [address] [facility] [phone] Alexander Winn, DO [address] [facility] [place] [address] Social History Tobacco Use Types Packs/Day Years [...]
--- OUTSIDE RECORDS SUMMARY | 2024-12-14 04:57 | XMS_ITS | Encounter Summary ---
Author Organization [facility] Address [address] [facility] [place] [address] Care Team Providers Care Music Therapy Teacher Name Role Phone Unavailable Primary Care Provider Unavailabl e Encounter Details Date Type Department Care Team (Late st Contact Info) Description 09/14/2024 Abstract [facility] [address] [facility] [place] [phone] Alexander Winn, DO [address] [facility] [place] [address] Social History Tobacco Use Types Packs/Day Years [...]
--- OUTSIDE RECORDS SUMMARY | 2024-12-14 04:57 | XMS_ITS | CCD ---
Author Organization [facility] Care Team Providers Care Managing Cognitive Engineer Name Role Phone ENRICO SERRANO Admitting Unavailable MARYJOKENRICO Attending Unavailable REQUEST, NONE LISTED Primary Care Unavailable ENRICO SERRANO Consulting Unavailable JULIAN GARCES Consulting Unavailable KARASIK, ENRICO Admitting Unavailable KARASIK, ENRICO Attending Unavailable KARASIKENRICO Consulting Unavailable PA, ROXANNA Admitting Unavailable PA, ROXANNA Attending Unavailable PA, ROXANNA Consulting Unavailable KARASIK, ENRICO Admitting Unavailable KARASIK, ENRICO Attending Unavailable LUANASIENRICO Polanco Consulting Unavailable LUANASIENRICO Polanco Admitting Unavailable KARASIK, ENRICO Attending Unavailable PA, ROXANNA Admitting Unavailable PA, ROXANNA Attending Unavailable PA, ROXANNA Consulting Unavailable DAXA REYNA Consulting Unavailable OSVALDOOSMANI Consulting Unavailable PA, ROXANNA Procedure Practitioner Unavailab le OSVALDOOSMANI Procedure Practitioner Unavailab DIANNE Aguayo Consulting Unavailable Unavailable Primary Care Provider Unavailabl e PA, ROXANNA R Referring Unavailable NO PCP, NO PCP Primary Care Unavailable PA, ROXANNA R Referring Unavailable NO PCP, NO PCP Primary Care Unavailable GLORIA GRIFFIN Referring Unavailable SERVICES, [facility] Primary Care Unava ilable SERVICES, [facility] Primary Care Unava ilable KATHY SANTIAGO Attending Unavailable AP, ROXANNA R Referring Unavailable SERVICES, [facility] Primary Care Unava ilable PA, ROXANNA R Referring Unavailable SERVICES, [facility] Primary Care Unava ilable GLORIA GRIFFIN Attending Unavailable PA, ROXANNA Attending Unavailable DIANE MOORE Attending Unavailable PA, ROXANNA Attending Unavailable PA, ROXANNA Referring Unavailable GLORIA GRIFFIN Attending Unavailable PA, ROXANNA Attending Unavailable PA, ROXANNA Attending Unavailable PA, ROXANNA Attending Unavailable ROXANNA WINN Attending Unavailable GLORIA GRIFFIN Attending Unavailable ROXANNA WINN Attending Unavailable Medications Current Medications Medication Drug Class(es) Dates Sig (Normalized) Sig (Original) metoclopramide 10 mg oral tablet (20 sources) Dopamine-2 Receptor Antagonist Start: 07-02-2024 End: 08-01-2024 metoclopramide (Reglan) 10 MG tablet Indications: Nausea and vomiting in ([facility]) Take 1 tablet (10 mg) by mouth in the morning and 1 tablet (10 mg) at noon and 1 tablet (10 mg) in the evening. Take before meals. Take 1 tablet by mouth 30 minutes prior to meals 3 times daily as needed for nausea.. 90 tablet 07/02/2024 Active polysaccharide iron complex 391 mg oral capsule (6 sources) Start: 10-24-2024 End: 11-23-2024 take 1 capsule by mouth once daily iron polysaccharides (ProFe) 391.3 (180 Fe) MG capsule Indications: Anemia affecting in third trimester ([facility]) Take 1 capsule (391.3 mg) by mouth Daily 30 capsule 6 10/24/2024 11/23/2024 Active Vit w/Gt-Hylhfcocn-QH (PNV PO) (20 sources) Vit w/Hk-Lrvfxhhds-SO (PNV PO) Take by mouth Active Problems Active Problems Problem Classification Problem Date Documented Date Episodic/Chronic Hemorrhage during ; abruptio placenta; placenta previa (2 sources) Other antepartum hemorrhage, second trimester; Translations: [Antepartum hemorrhage, unspecified, unspecified trimester] Onset: 07-27-2024 Episodic Immunizations and screening for infectious disease (3 sources) Encounter for screening for infections with a predominantly sexual mode of transmission; Translations: [Exposure to sexually transmissible disorder] Onset: 03-21-2019 07-02-2024 Episodic Menstrual disorders (2 sources) Missed period; [...] FLUID] Onset: 04-17-2019 Episodic Other complications of (4 sources) Anemia in mother complicating , childbirth AND/OR puerperium; Translations: [Anemia complicating , third trimester] 11-21-2024 Chronic Other complications of (2 sources) Supervision of young primigravida, third trimester; Translations: [SUP YOUNG PRIMIGRAVIDA THIRD TRI] Onset: 04-09-2019 Episodic Other complications of (2 sources) Vomiting of , unspecified; Translations: [Unspecified vomiting of , unspecified as to episode of care or not applicable] 07-02-2024 Episodic Other complications of (4 sources) Excessive growth affecting management of mother; Translations: [Maternal care for excessive growth, unspecified trimester, not applicable or unspecified] 10-09-2024 Episodic Other complications of (1 source) Maternal care for excessive growth, unspecified trimester, not applicable or unspecified; Translations: [Maternal care for excessive growth, unspecified trimester, not applicable or unspecified] Onset: 10-23-2024 Episodic Other female genital disorders (2 sources) Vaginal discharge; Translations: [Other specified noninflammatory disorders of vagina] 07-02-2024 Episodic Other and delivery including normal (20 sources) Encounter for supervision of normal , unspecified, second trimester; Translations: [Single live ] Onset: 12-19-2018 04-30-2024 Episodic Other screening for suspected conditions (not mental disorders or infectious disease) (5 sources) Patient encounter status; Translations: [Encounter for other specified screening] Onset: 10-23-2024 07-02-2024 Episodic Other screening for suspected conditions (not mental disorders or infectious disease) (5 sources) Encounter for screening, unspecified; Translations: [Encounter for screening for Streptococcus B] Onset: 12-28-2018 Residual codes; unclassified (1 source) Gestation period, 6 weeks; Translations: [Less than 8 weeks gestation of ] 04-30-2024 Episodic Residual codes; unclassified (2 sources) Gestation period, 15 weeks; Translations: [15 weeks gestation of ] 07-02-2024 Episodic Residual codes; unclassified (2 sources) Gestation period, 20 weeks; Translations: [20 weeks gestation of ] 08-06-2024 Episodic Residual codes; unclassified (2 sources) Gestation period, 25 weeks; Translations: [25 weeks gestation of ] 09-12-2024 Episodic Residual codes; unclassified (2 sources) Gestation period, 29 weeks; Translations: [29 weeks gestation of ] 10-09-2024 Episodic Residual codes; unclassified (20 sources) Gestation period, 31 weeks; Translations: [31 weeks gestation of ] Onset: 10-23-2024 10-23-2024 Episodic Residual codes; unclassified (1 source) 29 weeks gestation of ; Translations: [29 weeks gestation of ] Onset: 10-23-2024 Episodic Residual codes; unclassified (2 sources) Gestation period, 33 weeks; Translations: [33 weeks gestation of ] 2024 Episodic Residual codes; unclassified (2 sources) Gestation period, 35 weeks; Translations: [35 weeks gestation of ] 11-21-2024 Episodic Residual codes; unclassified (2 sources) Gestation period, 36 weeks; Translations: [36 weeks gestation of ] 11-28-2024 Episodic Residual codes; unclassified (2 sources) Gestation period, 37 weeks; Translations: [37 weeks gestation of ] 12-05-2024 Episodic Residual codes; unclassified (2 sources) Gestation period, 38 weeks; Translations: [38 weeks gestation of ] 12-12-2024 Episodic Residual codes; unclassified (1 source) 39 weeks gestation of ; Translations: [39 WEEKS GESTATION OF ] Onset: 04-17-2019 Unclassified (20 sources) OB Reminders Onset: 05-01-2024 05-01-2024 Unclassified (1 source) Vaginal Bleeding - Onset: 07-27-2024 Unclassified (1 source) Vaginal Bleeding, 19 Weeks Onset: 07-27-2024 Past or Other Problems Problem Classification Problem Date Documented Da te Episodic/Chronic Other complications of (4 sources) Supervision of high risk , unspecified, first trimester; Translations: [SUP HIGH RISK UNS 1ST TRI] Onset: 12-20-2018 Episodic Other complications of (4 sources) Supervision of other high risk pregnancies, unspecified trimester; Translations: [SUP OTH HIGH RISK UNS TRI] Onset: 12-21-2018 Episodic Residual codes; unclassified (20 sources) Gestation period, 10 weeks; Translations: [10 weeks gestation of ] Onset: 05-31-2024 05-31-2024 Episodic Residual codes; unclassified (1 source) 15 weeks gestation of ; Translations: [15 weeks gestation of ] Onset: 07-25-2024 Episodic Results Test Name Value Interpretation Reference Range Facility Urinalysis macro (dipstick) panel (U)on 12-12-2024 Bilirubin, UA Negative Negative - 4(70) +++ mg/dL [facility] Blood, UA Negative Negative - 50 Balbir/mcL [facility] Healthcare Clarity, UA Clear [facility] Color, UA Yellow [facility] Glucose, UA Negative Negative - 1999(110) ++++ mg/dL [facility] Interpretation and review of laboratory results Abnormal [facility] Ketones, UA Negative Negative - 160(16) ++++ mg/dL [facility] Leukocytes, UA Moderate Negative - 500+++ Osbaldo/mcL [facility] Nitrite, UA Negative Negative - Positive [facility] pH, UA 6.5 5 - 9 [facility] Protein, UA Negative Negative - 1999(20) ++++ mg/dL [facility] Spec Grav, UA 1.02 1 - 1.03 [facility] Urobilinogen, UA 0.2 0.2 - 12 mg/dL [facility] Urinalysis macro (dipstick) panel (U)on 12-05-2024 Bilirubin, UA Negative Negative - 4(70) +++ mg/dL [facility] Blood, UA Negative Negative - 50 Balbir/mcL [facility] Healthcare Clarity, UA Clear [facility] Color, UA Yellow [facility] Glucose, UA Negative Negative - 1999(110) ++++ mg/dL [facility] Interpretation and review of laboratory results Abnormal [facility] Ketones, UA Negative Negative - 160(16) ++++ mg/dL [facility] Leukocytes, UA Positive Negative - 500+++ Osbaldo/mcL [facility] Healthcare Comment on above: small Nitrite, UA Negative Negative - Positive [facility] pH, UA 7 5 - 9 [facility] Protein, UA Negative Negative - 1999(20) ++++ mg/dL [facility] Spec Grav, UA 1.015 1 - 1.03 [facility] Health care Urobilinogen, UA 0.2 0.2 - 12 mg/dL [facility] Urinalysis macro (dipstick) panel (U)on 11-28-2024 Bilirubin, UA Negative Negative - 4(70) +++ mg/dL [facility] Blood, UA Negative Negative - 50 Balbir/mcL [facility] Healthcare Clarity, UA Clear [facility] Color, UA Yellow [facility] Glucose, UA Trace Negative - 1999(110) ++++ mg/dL [facility] Interpretation and review of laboratory results Abnormal [facility] Ketones, UA Negative Negative - 160(16) ++++ mg/dL [facility] Healthcare Leukocytes, UA Positive Negative - 500+++ Osbaldo/mcL [facility] Healthcare Nitrite, UA Negative Negative - Positive [facility] pH, UA 6.5 5 - 9 [facility] Protein, UA Negative Negative - 1999(20) ++++ mg/dL [facility] Spec Grav, UA 1.025 1 - 1.03 [facility] care Urobilinogen, UA 1.0 0.2 - 12 mg/dL [facility] Urinalysis macro (dipstick) panel (U)on 11-21-2024 Bilirubin, UA Negative Negative - 4(70) +++ mg/dL [facility] Blood, UA Negative Negative - 50 Balbir/mcL [facility] Healthcare Clarity, UA Clear [facility] Color, UA Yellow [facility] Glucose, UA Positive Negative - 1999(110) ++++ mg/dL [facility] Interpretation and review of laboratory results Abnormal [facility] Ketones, UA Negative Negative - 160(16) ++++ mg/dL [facility] Healthcare Leukocytes, UA Positive Negative - 500+++ Osbaldo/mcL [facility] Nitrite, UA Negative Negative - Positive [facility] pH, UA 6.5 5 - 9 [facility] Protein, UA Negative Negative - 1999(20) ++++ mg/dL [facility] Healthcare Spec Grav, UA 1.025 1 - 1.03 [facility] care Urobilinogen, UA 1.0 0.2 - 12 mg/dL [facility] Urinalysis macro (dipstick) panel (U)on 2024 Bilirubin, UA Negative Negative - 4(70) +++ mg/dL [facility] Blood, UA Negative Negative - 50 Balbir/mcL [facility] Clarity, UA Clear [facility]ca re Color, UA Yellow [facility] Glucose, UA Negative Negative - 1999(110) ++++ mg/dL [facility] Interpretation and review of laboratory results Abnormal [facility] Ketones, UA Positive Negative - 160(16) ++++ mg/dL [facility] Comment on above: 15 Leukocytes, UA Positive Negative - 500+++ Osbaldo/mcL [facility] Comment on above: large Nitrite, UA Negative Negative - Positive [facility] pH, UA 6.5 5 - 9 [facility] Protein, UA Negative Negative - 1999(20) ++++ mg/dL [facility] Spec Grav, UA 1.015 1 - 1.03 [facility] Urobilinogen, UA 0.2 0.2 - 12 mg/dL [facility] CBC WITH AUTO DIFFERENTIALon 10-23-2024 Band form neutrophils/100 WBC (Bld) 2 % Normal [facility] Comment on above: Result Comment: This is an appended report. These results have been appended to a previously preliminary verified report. Performed By: #### TAE Simpson BCA, 8014-3, 36264-2, 69353-0, 56124-3, 5196-1 #### [facility] ([id number]) [address], [address] [place] [address] CELLAVISION BASOPHILS ABSOLUTE COUNT (10*3/UL) BY MANUAL COUNT 0.1 10*3/uL Normal 0.0-0.2 [facility] Comment on above: Result Comment: This is an appended report. These results have been appended to a previously preliminary verified report. Performed By: #### JENNIFER Simpson BCA1C, 8014-3, 80759-2, 18079-9, 08283-3, 5196-1 #### [facility] ([id number]) [address] [place] [address] CELLAVISION BASOPHILS RELATIVE PERCENT BY MANUAL COUNT 1 % Normal [facility] Comment on above: Result Comment: This is an appended report. These results have been appended to a previously preliminary verified report. Performed By: #### Tatiana IRWIN JENNIFER1C, 8014-3, 33185-9, 91211-5, 01866-6, 5196-1 #### [facility] ([id number]) [address], [address] [place] [address] CELLAVISION DIFFERENTIAL TYPE MANUAL DIFFERENTIAL Normal [facility] Comment on above: Result Comment: This is an appended report. These results have been appended to a previously preliminary verified report. Performed By: #### C TAE IRWIN, 8014-3, 93743-5, 36822-9, 16612-3, 5196-1 #### [facility] ([id number]) [address], [address] [place] [address] CELLAVISION EOSINOPHILS ABSOLUTE COUNT (10*3/UL) BY MANUAL COUNT 0.1 10*3/uL Normal 0.0-0.4 [facility] Comment on above: Result Comment: This is an appended report. These results have been appended to a previously preliminary verified report. Performed By: #### Tatiana IRWIN JENNIFERBasim, 8014-3, 46844-5, 35226-7, 26520-3, 5196-1 #### [facility] ([id number]) [address], [address] [place] [address] CELLAVISION EOSINOPHILS PERCENT BY MANUAL COUNT 2 % Normal [facility] Comment on above: Result Comment: This is an appended report. These results have been appended to a previously preliminary verified report. Performed By: #### Tatiana IRWIN JENNIFER1C, 8014-3, 74093-7, 65756-5, 61166-9, 5196-1 #### [facility] ([id number]) [address], [address] [place] [address] CELLAVISION LYMPHOCYTES ABSOLUTE COUNT (10*3/UL) BY MANUAL COUNT 1.1 10*3/uL Normal 1.0-3.5 [facility] Comment on above: Result Comment: This is an appended report. These results have been appended to a previously preliminary verified report. Performed By: #### Tatiana IRWIN JENNIFER1C, 8014-3, 49087-5, 04994-5, 83340-7, 5196-1 #### [facility] ([id number]) [address], [address] [place] [address] CELLAVISION LYMPHOCYTES RELATIVE PERCENT BY MANUAL COUNT 16 % Normal [facility] Comment on above: Result Comment: This is an appended report. These results have been appended to a previously preliminary verified report. Performed By: #### TAE Simpson BCA, 8014-3, 73992-3, 61636-7, 13206-4, 5196-1 #### [facility] ([id number]) [address], [address] [place] [address] CELLAVISION METAMYELOCYTES RELATIVE PERCENT BY MANUAL COUNT 1 % Normal [facility] Comment on above: Result Comment: This is an appended report. These results have been appended to a previously preliminary verified report. Performed By: #### TAE Simpson BCA, 8014-3, 76428-3, 83354-5, 26872-7, 5196-1 #### [facility] ([id number]) [address], [address] [place] [address] CELLAVISION MONOCYTES ABSOLUTE COUNT (10*3/UL) IN BLOOD BY MANUAL COUNT 0.4 10*3/uL Normal 0.0-0.9 [facility] Comment on above: Result Comment: This is an appended report. These results have been appended to a previously preliminary verified report. Performed By: #### Ttaiana IRWIN JENNIFER1C, 8014-3, 71994-8, 99438-3, 85828-9, 5196-1 #### [facility] ([id number]) [address], [address] [place] [address] CELLAVISION MONOCYTES RELATIVE PERCENT BY MANUAL COUNT 5 % Normal [facility] Comment on above: Result Comment: This is an appended report. These results have been appended to a previously preliminary verified report. Performed By: #### Tatiana IRWIN JENNIFERBasim, 8014-3, 43588-4, 20564-1, 11724-4, 5196-1 #### [facility] ([id number]) [address], [address] [place] [address] CELLAVISION NEUTROPHILS ABSOLUTE COUNT BY MANUAL COUNT 5.3 10*3/uL Normal 1.5-6.6 [facility] Comment on above: Result Comment: This is an appended report. These results have been appended to a previously preliminary verified report. Performed By: #### TAE Simpson BCA, 8014-3, 87690-8, 72267-0, 06935-9, 5196-1 #### [facility] ([id number]) [address], [address] [place] [address] CELLAVISION NEUTROPHILS RELATIVE PERCENT BY MANUAL COUNT 73 % Normal [facility] Comment on above: Result Comment: This is an appended report. These results have been appended to a previously preliminary verified report. Performed By: #### Tatiana IRWIN JENNIFERBasim, 8014-3, 19182-8, 10004-1, 58612-7, 5196-1 #### [facility] ([id number]) [address], [address] [place] [address] CELLAVISION RBC MORPHOLOGY Normal Normal [facility] Comment on above: Result Comment: This is an appended report. These results have been appended to a previously preliminary verified report. Performed By: #### Tatiana IRWIN JENNIFERBasim, 8014-3, 75224-4, 64291-5, 78343-5, 5196-1 #### [facility] ([id number]) [address], [address] [place] [address] Erythrocyte distribution width (RBC) [Ratio] 14.8 % Normal 11.5-15 [facility] Comment on above: Performed By: #### C ALIDA, JENNIFER1C, 8014-3, 24459-8, 28736-6, 04193-6, 5196-1 #### [facility] ([id number]) [address], [address] [place] [address] Hematocrit (Bld) [Volume fraction] 29.6 % Low 35-47 [facility] Comment on above: Performed By: #### C ALIDA, JENNIFER1C, 8014-3, 96019-2, 50718-8, 64053-0, 5196-1 #### [facility] ([id number]) [address], [facility] [address] [place] [address] Hemoglobin (Bld) [Mass/Vol] 10.0 g/dL Low 11.7-15.5 [facility] Comment on above: Performed By: #### C TAE IRWIN, 8014-3, 55438-5, 35998-9, 42532-4, 5196-1 #### [facility] ([id number]) [address], [address] [place] [address] MCH (RBC) [Entitic mass] 27.7 pg Normal 27-34 [facility] Comment on above: Performed By: #### C JENNIFER IRWIN1C, 8014-3, 93461-3, 06068-8, 91858-7, 5196-1 #### [facility] ([id number]) [address], [address] [place] [address] MCHC (RBC) [Mass/Vol] 33.8 g/dL Normal 32-36 [facility] Comment on above: Performed By: #### C ALIDA, JENNIFER1C, 8014-3, 44399-1, 13568-4, 00005-4, 5196-1 #### [facility] ([id number]) [address] [place] [address] MCV (RBC) [Entitic vol] 82 fL Normal 80-100 [facility] Comment on above: Performed By: #### C ALIDA, HA1C, 8014-3, 48504-7, 11768-9, 78734-9, 5196-1 #### [facility] ([id number]) [address], [address] [place] [address] Platelet mean volume (Bld) [Entitic vol] 8.0 fL Normal 7-12 [facility] Comment on above: Performed By: #### C ALIDA, HA1C, 8014-3, 40126-0, 31706-6, 96005-2, 5196-1 #### [facility] ([id number]) [address], [address] [place] [address] Platelets (Bld) [#/Vol] 241 10*3/uL Normal 150-450 [facility] Comment on above: Performed By: #### C ALIDA, JENNIFER1C, 8014-3, 12151-6, 59114-1, 69140-5, 5196-1 #### [facility] ([id number]) [address], [address] [place] [address] RBC COUNT 3.61 X10E12/L Low 3.8-5.2 [facility] Comment on above: Performed By: #### Tatiana IRWIN, HA1C, 8014-3, 39407-5, 73351-5, 50107-6, 5196-1 #### [facility] ([id number]) [address], [address] [place] [address] WBC (Bld) [#/Vol] 7.1 10*3/uL Normal 4-11 [facility] Comment on above: Performed By: #### Tatiana IRWIN, HA1C, 8014-3, 43046-2, 65617-7, 78455-9, 5196-1 #### [facility] ([id number]) [address], [address] [place] [address] HEMOGLOBIN A1Con 10-23-2024 Glucose [Mass/Vol] 100 mg/dL Normal [facility] Comment on above: Performed By: #### C JENNIFER IRWIN1C, 8014-3, 21441-9, 09894-1, 75811-4, 5196-1 #### [facility] ([id number]) [address], [address] [place] [address] HbA1c (Bld) [Mass fraction] 5.1 % Normal 4.4-5.6 [facility] Comment on above: Result Comment: ADA Guidelines Result HgbA1c Normal : less than 5.7 % Prediabetes : 5.7 % to 6.4 % Diabetes : > 6.4 % Use with caution in patients with abnormal hemoglobin variants as the half-life of red blood cells and in vivo glycation rates are affected. Performed By: #### C JENNIFER IRWIN1C, 8014-3, 29469-6, 49741-8, 66009-0, 5196-1 #### [facility] ([id number]) [address], [address] [place] [address] US OB FOLLOW UP TRANSABDOMIN AL APPROACHon 10-23-2024 US OB FOLLOW UP TRANSABDOMINAL APPROACH EXAM: US OB FOLLOW UP TRANSABDOMINAL APPROACH [...] II, MD, PHD at 25-Oct-2024 08:49:34 AM [facility] Normal Not Available Comment on above: Order Comment: US OB SCAN FOR GROWTH Estimated Date of Delivery: 12/21/24 Gestational Age as of 10/09/2024: 29w4d Urinalysis macro (dipstick) panel (U)on 10-23-2024 Bilirubin, UA Negative Negative - 4(70) +++ mg/dL [facility] Blood, UA Negative Negative - 50 Balbir/mcL [facility] Healthcare Clarity, UA Clear [facility] Color, UA Yellow [facility] Glucose, UA Positive Negative - 1999(110) ++++ mg/dL [facility] Interpretation and review of laboratory results Abnormal [facility] Ketones, UA Negative Negative - 160(16) ++++ mg/dL [facility] Leukocytes, UA Moderate Negative - 500+++ Osbaldo/mcL [facility] Nitrite, UA Negative Negative - Positive [facility] pH, UA 6 5 - 9 [facility] Protein, UA Negative Negative - 1999(20) ++++ mg/dL [facility] Spec Grav, UA 1.015 1 - 1.03 [facility] Urobilinogen, UA 0.2 0.2 - 12 mg/dL [facility] Urinalysis macro (dipstick) panel (U)on 10-09-2024 Bilirubin, UA Negative Negative - 4(70) +++ mg/dL [facility] Blood, UA Negative Negative - 50 Balbir/mcL [facility] Healthcare Clarity, UA Clear [facility] Color, UA Yellow [facility] Glucose, UA Positive Negative - 1999(110) ++++ mg/dL [facility] Comment on above: 250 Interpretation and review of laboratory results Abnormal [facility] Healthcare Ketones, UA Negative Negative - 160(16) ++++ mg/dL [facility] Leukocytes, UA Positive Negative - 500+++ Osbaldo/mcL [facility] Healthcare Comment on above: small Nitrite, UA Negative Negative - Positive [facility] pH, UA 6 5 - 9 [facility] Protein, UA Negative Negative - 1999(20) ++++ mg/dL [facility] Spec Grav, UA 1.02 1 - 1.03 [facility] care Urobilinogen, UA 0.2 0.2 - 12 mg/dL [facility] US PREG LMTD 1 OR MORE FETUS on 09-12-2024 US PREG LMTD 1 OR MORE FETUS US PREG LMTD 1 OR MORE FETUS *ADDENDUM*Addendum: Specific measurement for DDP/ROSALES was not obtained by the technologist.. Subjectively the ROSALES is normal. If a specific measurement is required then patient should return for specific measurements. Finalized by Kt Lennon MD on 09/12/2024 2:54 PM Normal [facility] Urinalysis macro (dipstick) panel (U)on 09-12-2024 Bilirubin, UA Negative Negative - 4(70) +++ mg/dL [facility] Blood, UA Negative Negative - 50 Balbir/mcL [facility] Clarity, UA Clear [facility] re Color, UA Yellow [facility] Glucose, UA Positive Negative - 1999(110) ++++ mg/dL [facility] Comment on above: 250 Interpretation and review of laboratory results Abnormal [facility] Ketones, UA Positive Negative - 160(16) ++++ mg/dL [facility] Comment on above: trace Leukocytes, UA Positive Negative - 500+++ Osbaldo/mcL [facility] Comment on above: small Nitrite, UA Negative Negative - Positive [facility] pH, UA 6 5 - 9 [facility] Protein, UA Positive Negative - 1999(20) ++++ mg/dL [facility] Comment on above: 30 Spec Grav, UA 1.025 1 - 1.03 [facility] Urobilinogen, UA 0.2 0.2 - 12 mg/dL [facility] US OB 14+ WEEKS ANATOMY SCAN on 08-06-2024 US OB 14+ WEEKS ANATOMY SCAN EXAM: US OB 14+ WEEKS ANATOMY SCAN HISTORY: anatomy. COMPARISON: None available. TECHNIQUE: Two-dimensional transabdominal grayscale ultrasound imaging of the pelvis was performed. FINDINGS: Gestation: Single Presentation: Variable Cardiac Activity: Not measured - Visually seen Placental Location: Posterior with a small subchorionic bleed Distance from Placental Tip to Cervix: 5 cm Cervical Length: 5.2 cm Amniotic Fluid: Appears adequate MEASUREMENTS: BPD: 4.8 cm EGA: 20 weeks 4 days HC: 18.8 cm EGA: 21 weeks 1 days AC: 16.3 cm EGA: 21 weeks 2 days FL: 3.6 cm EGA: 21 weeks 4 days HC/AC Ratio: 1.15 The gestational age by today's ultrasound is 21 weeks 1 days (+/- 10 days gestation). Estimated Weight: 418 grams, +/- 63 grams ( 0 lb 15 oz). Weight Percentile for gestational age: 90 % ANATOMY C-Spine: Unremarkable T-Spine: Unremarkable L-Spine: Unremarkable Sacrum: Unremarkable Four Chamber Heart: Unremarkable LVOT: Unremarkable RVOT: Unremarkable Stomach: Unremarkable Kidneys: Unremarkable Bladder: Unremarkable Diaphragm: Unremarkable Cord insertion: Unremarkable Cord vessels: Three Lateral Ventricles: Unremarkable Cerebellum: Unremarkable Cisterna Magna: Unremarkable Posterior Fossa: Unremarkable Right Femur: Unremarkable Left Femur: Unremarkable Right Tib/Fib: Unremarkable Left Tib/Fib: Unremarkable Right Rad/Ulnar: Unremarkable Left Rad/Ulnar: Unremarkable Right Humerus: Unremarkable Left Humerus: Unremarkable Nose/Lips: Unremarkable Orbits: Unremarkable IMPRESSION: 1. Single, live intrauterine gestation 20 weeks, 3 days by LMP. Today's ultrasound measurements correlate with a gestational age of 21 weeks 1 days. Estimated weight is 418 grams, +/- 63 grams ( 0 lb 15 oz) which correlates to 90 %. DELLA is 12/16/2024. 2. Unremarkable ultrasound of the anatomy. 3. Small subchorionic hemorrhage. Electronically Signed:Electronicall y signed by SANDI RODRIGUEZ II, MD, PHD at 07-Aug-2024 12:32:44 AM [facility] Normal Not Available Comment on above: Order Comment: US OB ANATOMY SINGLE W US OB CERVICAL LENGTH Estimated Date of Delivery: 12/21/24 Gestational Age as of 07/02/2024: 15w3d Urinalysis macro (dipstick) panel (U)on 08-06-2024 Bilirubin, UA Negative Negative - 4(70) +++ mg/dL [facility] Blood, UA Negative Negative - 50 Balbir/mcL [facility] Clarity, UA Clear [facility] re Color, UA Yellow [facility] Health[facility] e Glucose, UA Negative Negative - 1999(110) ++++ mg/dL [facility] Interpretation and review of laboratory results Abnormal [facility] Ketones, UA Negative Negative - 160(16) ++++ mg/dL [facility] Leukocytes, UA Positive Negative - 500+++ Osbaldo/mcL [facility] Comment on above: small Nitrite, UA Negative Negative - Positive [facility] pH, UA 7 5 - 9 [facility] Protein, UA Negative Negative - 1999(20) ++++ mg/dL [facility] Spec Grav, UA 1.015 1 - 1.03 [facility] Urobilinogen, UA 0.2 0.2 - 12 mg/dL [facility] HCG ( test) Ql (U)o n 07-27-2024 Beta HCG ( test) Ql (U) Positive Abnormal NEG [facility] Comment on above: Performed By: #### C JENNIFER IRWIN1C, 8014-3, 98566-3, 67591-1, 85745-4, 5196-1 #### [facility] ([id number]) [address], [address] [place] [address] URN MACROSCOPIC NURon 2024 BILIRUBIN GIOVANNI Negative Normal [facility] Comment on above: Performed By: #### JENNIFER Simpson BCA1C, 8014-3, 26094-9, 62520-8, 25383-9, 5196-1 #### [facility] ([id number]) [address], [address] [place] [address] BLOOD/HGB GIOVANNI Negative Normal NEG [facility] Comment on above: Performed By: #### C ALIDA HA1C, 8014-3, 98098-9, 32563-5, 51773-5, 5196-1 #### [facility] ([id number]) [address], [address] [place] [address] GLUCOSE GIOVANNI Negative Normal NEG [facility] Comment on above: Performed By: #### C BCA, HA1C, 8014-3, 30009-9, 78179-5, 71816-8, 5196-1 #### [facility] ([id number]) [address], [address] [place] [address] KETONES GIOVANNI Negative Normal NEG [facility] Comment on above: Performed By: #### C BCA, HA1C, 8014-3, 22310-0, 46384-4, 91490-6, 5196-1 #### [facility] ([id number]) [address], [address] [place] [address] LEUKOCYTE ESTERASE GIOVANNI Negative Normal NEG [facility] Comment on above: Performed By: #### C BCA, HA1C, 8014-3, 57527-5, 87581-3, 62737-6, 5196-1 #### [facility] ([id number]) [address], [address] [place] [address] NITRITE GIOVANNI Negative Normal NEG [facility] Comment on above: Performed By: #### C BCA, HA1C, 8014-3, 85107-7, 85408-1, 91248-4, 5196-1 #### [facility] ([id number]) [address], [address] [place] [address] PH GIOVANNI 6.0 Normal 5.0-8.5 [facility] Comment on above: Performed By: #### C BCA, HA1C, 8014-3, 21501-6, 32594-7, 14431-4, 5196-1 #### [facility] ([id number]) [address], [address] [place] [address] PROTEIN GIOVANNI Negative Normal NEG [facility] Comment on above: Performed By: #### C BCA, HA1C, 8014-3, 76811-4, 69887-1, 43058-4, 5196-1 #### [facility] ([id number]) [address], [address] [place] [address] SPECIFIC GRAVITY GIOVANNI 1.010 Normal 1.003-1.035 [facility] Comment on above: Performed By: #### C BCA, HA1C, 8014-3, 43761-5, 09907-0, 87738-7, 5196-1 #### [facility] ([id number]) [address], [address] [place] [address] UROBILINOGEN GIOVANNI 0.2 eu/dL Normal <1.1 [facility] Comment on above: Performed By: #### C BCA, HA1C, 8014-3, 19062-5, 94925-0, 80747-2, 5196-1 #### [facility] ([id number]) [address] [place] [address] AFP panelon 07-25-2024 AFP SINGLE MARKER SCRN, MATERNAL, SERUM SEE COMMENTS 07/26/2024 12:39 PM Normal [facility] Comment on above: Result Comment: NOTE Test Result Flag Unit RefValue - AFP Single Marker SCRN, Maternal, S Results Summary Normal risk Neural tube defect risk estimate 05/28,600 AFP 58.9 ng/mL AFP MoM 1.38 MoM <2.50 INTERPRETATION Screen negative for neural tube defects. RECOMMENDED FOLLOW UP None. Specimen collection date 07/25/24 Maternal date of 01 Calculated age at DELLA 24 years Maternal Weight 218 lbs Insulin dependent diabetes No Patient race Black Current cigarette smoking status non-Smoker DELLA by LMP 12/21/24 GA on collection by dates 18,5 wk,d GA used in risk estimate Dates estimate Number of Fetuses 1 Number of Chorions Unknown IVF No Prev w/ Neural Tube Unknown Defect Patient or father of baby has a Unknown NTD Initial or repeat testing Initial testing Physician Phone Number [phone] GENERAL TEST INFORMATION See Note This screening provides an estimation of risk, not a diagnosis. Incorrect or incomplete information may significantly alter results. Results may be unreliable in twin pregnancies with a demise. Results are not available for pregnancies with triplets and higher-order multiples. A positive result occurs when the AFP MoM equals or exceeds 2.5. Screen results and family history influence individual risk. If there is a family history of a neural tube defect, chromosome abnormality, or other inherited condition, consider the option of a genetic consultation. For further information, please contact the maternal screening laboratory at . ADDITIONAL INFORMATION This test was developed and its performance characteristics determined by [facility] in a manner consistent with CLIA requirements. This test has not been cleared or approved by the U.S. Food and Drug Administration. Test Performed by: [facility] [address] [place] [address] [employer] Up Operator: Jovana Guzmán Ph.D.; CLIA# [id number] Performed By: #### 4 8802-3 #### [facility] ([id number]) [address] [place] [address], [place] [address] BOX TESTon 07-02-2024 BOX TEST SENT OUT [facility] [address] [facility] [address] 07/02/24 [employer] [facility] Urinalysis macro (dipstick) panel (U)on 07-02-2024 Bilirubin, UA Negative Negative - 4(70) +++ mg/dL [facility] Blood, UA Negative Negative - 50 Balbir/mcL [facility] Clarity, UA Clear [facility] Color, UA Yellow [facility] Glucose, UA Negative Negative - 1999(110) ++++ mg/dL [facility] Interpretation and review of laboratory results Abnormal [facility] Ketones, UA Positive Negative - 160(16) ++++ mg/dL [facility] Leukocytes, UA Negative Negative - 500+++ Osbaldo/mcL [facility] Nitrite, UA Negative Negative - Positive [facility] pH, UA 5.5 5 - 9 [facility] Protein, UA Negative Negative - 1999(20) ++++ mg/dL [facility] Spec Grav, UA 1.02 1 - 1.03 [facility] Urobilinogen, UA 1.0 0.2 - 12 mg/dL [facility] Urinalysis macro (dipstick) panel (U)on 05-31-2024 Bilirubin, UA Negative Negative - 4(70) +++ mg/dL [facility] Blood, UA Negative Negative - 50 Balbir/mcL [facility] Clarity, UA Clear [facility] re Color, UA Yellow [facility] Glucose, UA Positive Negative - 1999(110) ++++ mg/dL [facility] Comment on above: 100 Interpretation and review of laboratory results Abnormal [facility] Ketones, UA Negative Negative - 160(16) ++++ mg/dL [facility] Leukocytes, UA Negative Negative - 500+++ Osbaldo/mcL [facility] Nitrite, UA Negative Negative - Positive [facility] pH, UA 7 5 - 9 [facility] e Protein, UA Negative Negative - 1999(20) ++++ mg/dL [facility] Spec Grav, UA 1.015 1 - 1.03 [facility] Urobilinogen, UA 0.2 0.2 - 12 mg/dL [facility] CBC AND AUTO DIFFon 05-01-20 24 ABSOLUTE BASOPHIL 0.0 X10E9/L Normal 0.0-0.2 [facility] Comment on above: Performed By: #### C JENNIFER IRWIN1C, 8014-3, 54760-9, 41333-3, 09304-7, 5196-1 #### [facility] ([id number]) [address], [address] [place] [address] ABSOLUTE NEUTROPHIL 4.8 X10E9/L Normal 1.5-6.6 [facility] Comment on above: Performed By: #### C JENNIFER IRWIN1C, 8014-3, 18371-5, 20438-2, 89930-8, 5196-1 #### [facility] ([id number]) [address], [address] [place] [address] Basophils/100 WBC (Bld) 0.4 % Normal [facility] Comment on above: Performed By: #### C ALIDA, HA1C, 8014-3, 06355-0, 23638-6, 83672-7, 5196-1 #### [facility] ([id number]) [address], [address] [place] [address] Eosinophils (Bld) [#/Vol] 0.1 10*3/uL Normal 0.0-0.4 [facility] Comment on above: Performed By: #### C ALDIA, HA1C, 8014-3, 15638-1, 54274-0, 47889-6, 5196-1 #### [facility] ([id number]) [address], [facility] [address] [place] [address] Eosinophils/100 WBC (Bld) 1.2 % Normal [facility] Comment on above: Performed By: #### C ALIDA, HA1C, 8014-3, 29255-7, 70412-1, 12409-0, 5196-1 #### [facility] ([id number]) [address], [facility] [address] [place] [address] Erythrocyte distribution width (RBC) [Ratio] 14.1 % Normal 11.5-15.0 [facility] Comment on above: Performed By: #### C ALIDA, HA1C, 8014-3, 45590-3, 22909-4, 59248-0, 5196-1 #### [facility] ([id number]) [address], [address] [place] [address] Hematocrit (Bld) [Volume fraction] 37.2 % Normal 35-47 [facility] Comment on above: Performed By: #### C ALIDA, HA1C, 8014-3, 58291-9, 63899-0, 71617-8, 5196-1 #### [facility] ([id number]) [address], [address] [place] [address] Hemoglobin (Bld) [Mass/Vol] 12.6 g/dL Normal 11.7-15.5 [facility] Comment on above: Performed By: #### C ALIDA, HA1C, 8014-3, 59325-9, 46474-7, 08368-7, 5196-1 #### [facility] ([id number]) [address], [address] [place] [address] Lymphocytes (Bld) [#/Vol] 1.5 10*3/uL Normal 1.0-3.5 [facility] Comment on above: Performed By: #### C ALIDA, HA1C, 8014-3, 17556-6, 21016-9, 65867-7, 5196-1 #### [facility] ([id number]) [address], [facility] [address] [place] [address] Lymphocytes/100 WBC (Bld) 21.4 % Normal [facility] Comment on above: Performed By: #### C ALIDA, HA1C, 8014-3, 13437-6, 05440-0, 24421-4, 5196-1 #### [facility] ([id number]) [address], [address] [place] [address] MCH (RBC) [Entitic mass] 30.2 pg Normal 27-34 [facility] Comment on above: Performed By: #### C ALIDA, HA1C, 8014-3, 69182-4, 62245-5, 34667-3, 5196-1 #### [facility] ([id number]) [address], [address] [place] [address] MCHC (RBC) [Mass/Vol] 33.9 g/dL Normal 32-36 [facility] Comment on above: Performed By: #### C BCA, HA1C, 8014-3, 19401-9, 82070-0, 99750-6, 5196-1 #### [facility] ([id number]) [address], [address] [place] [address] MCV (RBC) [Entitic vol] 89 fL Normal 80-100 [facility] Comment on above: Performed By: #### C ALIDA, HA1C, 8014-3, 70289-3, 92433-6, 49868-9, 5196-1 #### [facility] ([id number]) [address], [address] [place] [address] Monocytes (Bld) [#/Vol] 0.6 10*3/uL Normal 0-0.9 [facility] Comment on above: Performed By: #### C ALIDA, HA1C, 8014-3, 19257-8, 11910-2, 32700-1, 5196-1 #### [facility] ([id number]) [address], [address] [place] [address] Monocytes/100 WBC (Bld) 8.7 % Normal [facility] Comment on above: Performed By: #### Tatiana IRWIN, HA1C, 8014-3, 67720-6, 79702-9, 42317-8, 5196-1 #### [facility] ([id number]) [address], [address] [place] [address] Neutrophils/100 WBC (Bld) 68.3 % Normal [facility] Comment on above: Performed By: #### Tatiana IRWIN, HA1C, 8014-3, 67493-9, 95018-0, 83838-9, 5196-1 #### [facility] ([id number]) [address], [address] [place] [address] Platelet mean volume (Bld) [Entitic vol] 7.8 fL Normal 7-12 [facility] Comment on above: Performed By: #### Tatiana IRWIN, HA1C, 8014-3, 87777-9, 76286-5, 93370-5, 5196-1 #### [facility] ([id number]) [address], [address] [place] [address] Platelets (Bld) [#/Vol] 279 10*3/uL Normal 150-450 [facility] Comment on above: Performed By: #### C ALIDA, JENNIFER1C, 8014-3, 98818-5, 93683-7, 46482-0, 5196-1 #### [facility] ([id number]) [address], [address] [place] [address] RBC COUNT 4.17 X10E12/L Normal 3.80-5.20 [facility] Comment on above: Performed By: #### C ALIDA, JENNIFER1C, 8014-3, 56147-0, 32197-5, 10438-8, 5196-1 #### [facility] ([id number]) [address], [address] [address] WBC (Bld) [#/Vol] 7.0 10*3/uL Normal 4.0-11.0 [facility] Comment on above: Performed By: #### C ALIDA, JENNIFER1C, 8014-3, 83828-3, 52825-5, 36145-9, 5196-1 #### [facility] ([id number]) [address], [address] [address] CBC W Auto Differential pane l (Bld)on 05-01-2024 ABSOLUTE BASOPHIL 0 [facility] Comment on above: PERFORMED AT [facility] [address] [facility][note 3],[place] [address] Basophils/100 WBC (Bld) 0.4 % [facility] Eosinophils (Bld) [#/Vol] 0.1 10*3/uL [facility] Eosinophils/100 WBC (Bld) 1.2 % [facility] Erythrocyte distribution width (RBC) [Ratio] 14.1 % 11.5 - 15.0 % [facility] Hematocrit (Bld) [Volume fraction] 37.2 % 35 - 47 % [facility] Hemoglobin (Bld) [Mass/Vol] 12.6 g/dL 11.7 - 15.5 g/dL [facility] Healthcare Lymphocytes (Bld) [#/Vol] 1.5 10*3/uL [facility] Lymphocytes/100 WBC (Bld) 21.4 % [facility] MCH (RBC) [Entitic mass] 30.2 pg 27 - 34 pg [facility] MCHC (RBC) [Mass/Vol] 33.9 g/dL 32 - 36 g/dL [facility] MCV (RBC) [Entitic vol] 89 fL 80 - 100 fL [facility] Monocytes (Bld) [#/Vol] 0.6 10*3/uL [facility] Monocytes/100 WBC (Bld) 8.7 % [facility] Neutrophils (Bld) [#/Vol] 4.8 10*3/uL [facility] Neutrophils/100 WBC (Bld) 68.3 % [facility] Platelet mean volume (Bld) [Entitic vol] 7.8 fL 7 - 12 fL [facility] Platelets (Bld) [#/Vol] 279 10*3/uL [facility] RBC (Bld) [#/Vol] 4.17 10*6/uL [facility] WBC corrected for nucl RBC Auto (Bld) [#/Vol] 7 [facility] DRUG SCREEN, URINEon 024 AMPHETAMINE/METHAMP Negative Normal NEG [facility] Comment on above: Result Comment: AMPH /METH screening cut off = 1000 ng/mL Performed By: #### D SAMANIEGO #### [facility] ([id number]) [address], [address] [place] [address] BARBITURATES Negative Normal NEG [facility] Comment on above: Result Comment: Jenniffer iturates screening cut off value = 200 ng/mL Performed By: #### D SAMANIEGO #### [facility] ([id number]) [address], [address] [place] [address] BENZODIAZEPINES Negative Normal NEG [facility] Comment on above: Result Comment: Roberto odiazepines screening cut off value = 200 ng/mL Performed By: #### D SAMANIEGO #### [facility] ([id number]) [address], [address] [place] [address] CANNABINOIDS Positive Abnormal NEG [facility] Comment on above: Result Comment: Conf irmation available upon request. Cannabinoids/THC screening cut off value = 50 ng/mL Performed By: #### D SAMANIEGO #### [facility] ([id number]) [address], [address] [place] [address] COCAINE METABOLITE Negative Normal NEG [facility] Comment on above: Result Comment: Coca ine screening cut off value = 300 ng/mL Performed By: #### D SAMANIEGO #### [facility] ([id number]) [address], [address] [place] [address] ECSTASY Negative Normal NEG [facility] Comment on above: Result Comment: Ecst asy screening cut off value = 500 ng/mL This report is intended for use in clinical monitoring or management of patients. Performed By: #### D SAMANIEGO #### [facility] ([id number]) [address], [address] [place] [address] METHADONE Negative Normal [facility] Comment on above: Result Comment: Meth adone screening cut off value = 300 ng/mL. Performed By: #### D SAMANIEGO #### [facility] ([id number]) [address], [address] [place] [address] OPIATES Negative Normal NEG [facility] Comment on above: Result Comment: Opia wyatt screening cut off value = 300 ng/mL NOTE: This test is used for the detection of codeine, hydrocodone (>1000 ng/mL), morphine and hydromorphone (>900 ng/mL) in urine. Performed By: #### D SAMANIEGO #### [facility] ([id number]) [address], [address] [place] [address] OXYCODONE Negative Normal NEG [facility] Comment on above: Result Comment: Oxyc odone screening cut off value = 300 ng/mL NOTE: This test is used for the detection of oxycodone and oxymorphone in urine. Performed By: #### D SAMANIEGO #### [facility] ([id number]) [address], [address] [place] [address] PHENCYCLIDINE Negative Normal NEG [facility] Comment on above: Result Comment: Phen cyclidine screening cut off value = 25 ng/mL Performed By: #### D SAMANIEGO #### [facility] ([id number]) [address], [address] [place] [address] HBV surface Ag IA Qlon 05-01 HEPATITIS B SURF AG Non-Reactive Normal NRCT [facility] Comment on above: Performed By: #### C BCA, HA1C, 8014-3, 85096-0, 75519-2, 49712-3, 5196-1 #### [facility] ([id number]) [address], [address] [place] [address] HCV Ab IA Qlon 05-01-2024 ANTI HCV W/PCR REFLX Non-Reactive Normal NRCT Pr [facility] Comment on above: Result Comment: NOTE If recent infection suspected, recommend repeat testing (>2 months). Ubikeo-jl-znrqgx ratio is <1.00. Performed By: #### C BCA, HA1C, 8014-3, 92727-1, 62857-7, 00021-5, 5196-1 #### [facility] ([id number]) [address] [place] [address] HGB A1C (GLYCO-HGB)on 2023 Glucose [Mass/Vol] 105 mg/dL Normal [facility] Comment on above: Performed By: #### C BCA, HA1C, 8014-3, 61625-5, 67914-2, 74942-3, 5196-1 #### [facility] ([id number]) [address] [place] [address] HbA1c (Bld) [Mass fraction] 5.3 % Normal 4.4-5.6 [facility] Comment on above: Result Comment: NOTE ADA Guidelines Result HgbA1c Normal : less than 5.7 % Prediabetes : 5.7 % to 6.4 % Diabetes : > 6.4 % Use with caution in patients with abnormal hemoglobin variants as the half-life of red blood cells and in vivo glycation rates are affected. Performed By: #### C ALIDA, HA1C, 8014-3, 66428-8, 77378-5, 05202-1, 5196-1 #### [facility] ([id number]) [address] [place] [address], [address] [address] HIV 1+2 Ab+HIV1 p24 Ag IA Ql on 05-01-2024 HIV 1 and 2 Ab/Ag Screen Non-Reactive Normal NRCT [facility] Comment on above: Result Comment: NOTE [...] or diagnoses. Performed By: #### C ALIDA, HA1C, 8014-3, 74018-7, 21667-6, 34217-3, 5196-1 #### [facility] ([id number]) [address] [place] [address], [address] [place] [address] Rubella virus IgG Qn (S)on 07-02-2023 RUBELLA IgG 55 IU/mL Normal [facility] Comment on above: Result Comment: Interpretation-------- <8 NEGATIVE-considered Not Immune 8-9 EQUIVOCAL-consider retesting with new specimen >9 POSITIVE-considered Immune Performed By: #### Tatiana IRWIN, HA1C, 8014-3, 87188-8, 41280-0, 64489-5, 5196-1 #### [facility] ([id number]) [address] [place] [address], [address] [place] [address] T. pallidum IgG+IgM IA Ql (S )on 05-01-2024 Syphilis Total <0.2 Normal 0.0-0.8 [facility] Comment on above: Result Comment: NON REACTIVE No serologic evidence of infection to Treponema pallidum (syphilis). Repeat testing may be considered in patients with suspected acute or primary syphilis in 2 to 4 weeks. Performed By: #### C BCA, HA1C, 8014-3, 47292-5, 59590-6, 79670-3, 5196-1 #### [facility] ([id number]) [address] [place] [address], [address] [place] [address] URINE CULTUREon 05-01-2024 Bacteria identified Cx Nom (U) CULTURE RESULTS 10-50,000 ORGANISMS/mL NORMAL UROGENITAL KATY Normal [facility] Comment on above: Performed By: #### 6 30-4 #### [facility] ([id number]) [address] [place] [address], [address] [place] [address] HCG ( test) Ql (U)o n 04-30-2024 Interpretation and review of laboratory results Abnormal [facility] Preg Test, Ur Positive Negative [facility] care [facility] Urinalysis macro (dipstick) panel (U)on 04-30-2024 Bilirubin, UA Negative Negative - 4(70) +++ mg/dL [facility] Blood, UA Negative Negative - 50 Balbir/mcL [facility] Clarity, UA Clear [facility] Color, UA Yellow [facility] Glucose, UA Negative Negative - 1999(110) ++++ mg/dL [facility] Interpretation and review of laboratory results Abnormal [facility] Ketones, UA Positive Negative - 160(16) ++++ mg/dL [facility] Comment on above: 30 Leukocytes, UA Negative Negative - 500+++ Osbaldo/mcL [facility] Nitrite, UA Negative Negative - Positive [facility] pH, UA 6 5 - 9 [facility] Protein, UA Negative Negative - 1999(20) ++++ mg/dL [facility] Spec Grav, UA 1.02 1 - 1.03 [facility] Urobilinogen, UA 0.2 0.2 - 12 mg/dL [facility] AUTO DIFFon 04-11-2019 Basophils (Bld) [#/Vol] 0.0 103/ul Normal 0.0-0.1 [facility] Comment on above: Performed By: #### C BC #### [facility] [address] [place], [place] [address] Senia Margarita Basophils/100 WBC (Bld) 0.3 % Normal 0.2-2.0 [facility] Comment on above: Performed By: #### C BC #### [facility] [address] [place], [place] [address] Senia Margarita Eosinophils (Bld) [#/Vol] 0.1 103/ul Normal 0.0-0.7 [facility] Comment on above: Performed By: #### C BC #### [facility] [address] [place], [place] [address] Senia Margarita Eosinophils/100 WBC (Bld) 0.8 % Critically low 0.9-7.0 [facility] Comment on above: Performed By: #### C BC #### [facility] [address] [place], [place] [address] Seniaamilcar Avila Erythrocyte distribution width (RBC) [Ratio] 13.3 % Normal 11.0-15.0 [facility] Comment on above: Performed By: #### C BC #### [facility] [address] [place], [place] [address] Senia Margarita Hematocrit (Bld) [Volume fraction] 27.9 % Critically low 36.0-48.0 [facility] Comment on above: Performed By: #### C BC #### [facility] [address] [place], [place] [address] Senia Margarita Hemoglobin (Bld) [Mass/Vol] 9.5 g/dL Critically low 12.0-16.0 [facility] Comment on above: Result Comment: post Performed By: #### C BC #### [facility] [address] [place], [place] [address] Senia Margarita IG # 0.15 10e3/ul Critically high 0.00-0.03 [facility] Comment on above: Performed By: #### C BC #### [facility] [address] [id number] Senia Avila IG % 1.1 % Critically high 0.0-0.5 [facility] Comment on above: Performed By: #### C BC #### [facility] [address] [place], [place] [address] Senia Avila Lymphocytes (Bld) [#/Vol] 1.6 103/ul Normal 1.2-3.8 [facility] Comment on above: Performed By: #### C BC #### [facility] [address] [place], [place] [address] Senia Avila Lymphocytes/100 WBC (Bld) 11.8 % Critically low 20.5-60.0 [facility] Comment on above: Performed By: #### C BC #### [facility] [address] [place] [address] Senia Avila MANUAL DIFF REQ NO Normal [facility] Comment on above: Performed By: #### C BC #### [facility] [address] [place], [place] [address] Senia Avila MCH (RBC) [Entitic mass] 30.4 pg Normal 26.7-34.0 [facility] Comment on above: Performed By: #### C BC #### [facility] [address] [place], [place] [address] Senia Avila MCHC (RBC) [Mass/Vol] 34.1 g/dL Normal 29.9-35.2 [facility] Comment on above: Performed By: #### C BC #### [facility] [address] [place], [place] [address] Senia Avila MCV (RBC) [Entitic vol] 89.4 fL Normal 79.1-95.6 [facility] Comment on above: Performed By: #### C BC #### [facility] [address] [place], [place] [address] Senia Avila Monocytes (Bld) [#/Vol] 1.4 103/ul Critically high 0.3-0.8 [facility] Comment on above: Performed By: #### C BC #### [facility] [address] [place], [place] [address] Senia Margarita Monocytes/100 WBC (Bld) 10.2 % Normal 1.7-12.0 [facility] Comment on above: Performed By: #### C BC #### [facility] [address] [place], [place] [address] Senia Margarita Neutrophils (Bld) [#/Vol] 10.2 103/ul Critically high 1.4-6.5 [facility] Comment on above: Performed By: #### C BC #### [facility] [address] [place] [address] Senia Margarita Neutrophils/100 WBC (Bld) 75.8 % Critically high 43.0-75.0 [facility] Comment on above: Performed By: #### C BC #### [facility] [address] [place] [address] Senia Margarita Platelet mean volume (Bld) [Entitic vol] 9.1 fL Critically low 9.5-13.5 [facility] Comment on above: Performed By: #### C BC #### [facility] [address] [place] [address] Senia Margarita Platelets (Bld) [#/Vol] 150 103/ul Normal 150-450 [facility] Comment on above: Performed By: #### C BC #### [facility] [address] [place], [place] [address] Senia Margarita RBC (Bld) [#/Vol] 3.12 106/ul Critically low 3.40-5.30 [facility] Comment on above: Performed By: #### C BC #### [facility] [address] [place], [place] [address] Senia Margarita WBC (Bld) [#/Vol] 13.5 103/ul Critically high 4.0-11.0 [facility] Comment on above: Performed By: #### C BC #### [facility] [address] [place], [place] [address] Senia Margarita CBC AUTO DIFFon 04-09-2019 Basophils (Bld) [#/Vol] 0.0 103/ul Normal 0.0-0.1 [facility] Comment on above: Performed By: #### C BC #### [facility] [address] [place], [place] [address] Senia Margarita Basophils/100 WBC (Bld) 0.3 % Normal 0.2-2.0 [facility] Comment on above: Performed By: #### C BC #### [facility] [address] [place] [address] Senia Margarita Eosinophils (Bld) [#/Vol] 0.0 103/ul Normal 0.0-0.7 [facility] Comment on above: Performed By: #### C BC #### [facility] [address] [place] [address] Senia Margarita Eosinophils/100 WBC (Bld) 0.3 % Critically low 0.9-7.0 [facility] Comment on above: Performed By: #### C BC #### [facility] [address] [place] [address] Senia Margarita Erythrocyte distribution width (RBC) [Ratio] 13.3 % Normal 11.0-15.0 [facility] Comment on above: Performed By: #### C BC #### [facility] [address] [place] [address] Senia Margarita Hematocrit (Bld) [Volume fraction] 41.1 % Normal 36.0-48.0 [facility] Comment on above: Performed By: #### C BC #### [facility] [address] [place] [address] Senia Margarita Hemoglobin (Bld) [Mass/Vol] 14.3 g/dL Normal 12.0-16.0 [facility] Comment on above: Performed By: #### C BC #### [facility] [address] [place] [address] Senia Margarita IG # 0.12 10e3/ul Critically high 0.00-0.03 [facility] Comment on above: Performed By: #### C BC #### [facility] [address] [place], [place] [address] Senia Margarita IG % 1.0 % Critically high 0.0-0.5 [facility] Comment on above: Performed By: #### C BC #### [facility] [address] [place], [place] [address] Senia Margarita Lymphocytes (Bld) [#/Vol] 1.0 103/ul Critically low 1.2-3.8 [facility] Comment on above: Performed By: #### C BC #### [facility] [address] [id number] Senia Margarita Lymphocytes/100 WBC (Bld) 7.8 % Critically low 20.5-60.0 [facility] Comment on above: Performed By: #### C BC #### [facility] [address] [place], [place] [address] Senia Margarita MANUAL DIFF REQ NO Normal [facility] Comment on above: Performed By: #### C BC #### [facility] [address] [place], [place] [address] Senia Margarita MCH (RBC) [Entitic mass] 30.9 pg Normal 26.7-34.0 [facility] Comment on above: Performed By: #### C BC #### [facility] [address] [place], [place] [address] Senia Margarita MCHC (RBC) [Mass/Vol] 34.8 g/dL Normal 29.9-35.2 [facility] Comment on above: Performed By: #### C BC #### [facility] [address] [place], [place] [address] Senia Margarita MCV (RBC) [Entitic vol] 88.8 fL Normal 79.1-95.6 [facility] Comment on above: Performed By: #### C BC #### [facility] [address] [place], [place] [address] Senia Margarita Monocytes (Bld) [#/Vol] 1.1 103/ul Critically high 0.3-0.8 [facility] Comment on above: Performed By: #### C BC #### [facility] [address] [place], [place] [address] Senia Margarita Monocytes/100 WBC (Bld) 9.1 % Normal 1.7-12.0 [facility] Comment on above: Performed By: #### C BC #### [facility] [address] [place], [place] [address] Senia Margarita Neutrophils (Bld) [#/Vol] 10.2 103/ul Critically high 1.4-6.5 [facility] Comment on above: Performed By: #### C BC #### [facility] [address] [place] [address] Senia Margarita Neutrophils/100 WBC (Bld) 81.5 % Critically high 43.0-75.0 [facility] Comment on above: Performed By: #### C BC #### [facility] [address] [place] [address] Senia Margarita Platelet mean volume (Bld) [Entitic vol] 9.4 fL Critically low 9.5-13.5 [facility] Comment on above: Performed By: #### C BC #### [facility] [address] [place] [address] Senia Margarita Platelets (Bld) [#/Vol] 223 103/ul Normal 150-450 [facility] Comment on above: Performed By: #### C BC #### [facility] [address] [place] [address] Senia Margarita RBC (Bld) [#/Vol] 4.63 106/ul Normal 3.40-5.30 [facility] Comment on above: Performed By: #### C BC #### [facility] [address] [place] [address] Senia Margarita WBC (Bld) [#/Vol] 12.5 103/ul Critically high 4.0-11.0 [facility] Comment on above: Performed By: #### C BC #### [facility] [address] [place] [address] Senia Margarita DRUG SCREEN RAPID (URINE)on 04-09-2019 AMP Negative Normal NEGATIVE [facility] Comment on above: Performed By: #### C BC #### [facility] [address] [address] Senia Margarita BAR Negative Normal NEGATIVE [facility] Comment on above: Performed By: #### C BC #### [facility] [address] [place] [address] Senia Margarita BUP Negative Normal NEGATIVE [facility] Comment on above: Performed By: #### C BC #### [facility] [address] [place] [address] Senia Margarita BZO Negative Normal NEGATIVE [facility] Comment on above: Performed By: #### C BC #### [facility] [address] [place] [address] Senia Margarita DOMINGA Negative Normal NEGATIVE [facility] Comment on above: Performed By: #### C BC #### [facility] [address] [place] [address] CUT-OFFS SEE BELOW Normal [facility] Comment on above: Result Comment: AMP (Amphetamine): [...] ng/mL Performed By: #### C BC #### [facility] [address] [place] [address] DRUG CUT HEADER DRUG CLASS TEST SYSTEM CUT-OFF CONCENTRATIONS ARE FOLLOWS: Normal [facility] Comment on above: Performed By: #### C BC #### [facility] [address] [place] [address] Senia Margarita mAMP Negative Normal NEGATIVE [facility] Comment on above: Performed By: #### C BC #### [facility] [address] [address] Senia Margarita MTD Negative Normal NEGATIVE [facility] Comment on above: Performed By: #### C BC #### [facility] [address] [place] [address] Senia Margarita OPI Negative Normal NEGATIVE [facility] Comment on above: Performed By: #### C BC #### [facility] [address] [place] [address] Senia Margarita OXY Negative Normal NEGATIVE [facility] Comment on above: Performed By: #### C BC #### [facility] [address] [place] [address] Senia Margarita PCP Negative Normal NEGATIVE [facility] Comment on above: Performed By: #### C BC #### [facility] [address] [place] [address] Senia Margarita PPX Negative Normal NEGATIVE [facility] Comment on above: Performed By: #### C BC #### [facility] [address] [place] [address] Senia Margarita TCA Negative Normal NEGATIVE [facility] Comment on above: Performed By: #### C BC #### [facility] [address] [place] [address] Senia Margarita THC Negative Normal NEGATIVE [facility] Comment on above: Performed By: #### C BC #### [facility] [address] [place] [address] Senia Margarita CHLAMYDIA/GONOCOCCUS CECIL (SW AB/URINE/PAPon 03-19-2019 Chlamydia trachomatis, CECIL Negative Normal Negative [facility] Comment on above: Performed By: #### C BC #### [facility] [address] [place] [address] Senia Margarita Neisseria gonorrhoeae, CECIL Negative Normal Negative [facility] Comment on above: Performed By: #### C BC #### [facility] [address] [place] [address] Senia Margarita GROUP B STREP CULTUREon 02-21 S. agalactiae Ag Ql (Unsp spec) Culture Observations: NEGATIVE FOR GROUP B STREPTOCOCCUS Normal [facility] Comment on above: Performed By: #### C BC #### [facility] [address] [address] Senia Avila RPR QUANTon 12-23-2018 Rapid Plasma Reagin, Quant Non Reactive Normal NonRea<1:1 [facility] Comment on above: Performed By: #### C BC #### [facility] [address] [id number] Senia Margarita AFP MATERNAL FOR SPINA BIFID Aon 12-22-2018 AFP MoM 1.16 Normal [facility] Comment on above: Performed By: #### C BC #### [facility] [address] [address] Senia Avila AFP Value 115.2 ng/mL Normal [facility] Comment on above: Performed By: #### C BC #### [facility] [address] [address] Senia Avila AFP, Serum for Spina Bifida Report Normal [facility] Comment on above: Performed By: #### C BC #### [facility] [address] [id number] Senia Margarita Comment Comment Normal [facility] Comment on above: Result Comment: Luis Palafox, Ph.D., [facility] Principal [employer] Department Supervisor . References: Available Upon Request. . Multiples Of Median Cutoffs For AFP Elevations Joe 2.5 Black 2.8 IDD 2.0 Twins 4.5 Abbreviation Definitions IDD - Insulin Dep Diabetes OSBR - Open Spina Bifida Risk . For further inquiries contact [facility] at [phone]. Performed By: #### C BC #### [facility] [address] [id number] Senia Avila Gest Age Collection Date 23.7 weeks Normal [facility] Comment on above: Performed By: #### C BC #### [facility] [address] [id number] Senia Avila Gestat, Age Based on Ultrasound Normal [facility] Comment on above: Result Comment: 23.6 on 12/19/2018 Recalculations are not recommended when gestational dating by LMP and ultrasound are within 10 days. Performed By: #### C BC #### [facility] [address] [place] [address] Seniaamilcar Avila Insulin Dep Diabetes No Normal [facility] Comment on above: Performed By: #### C BC #### [facility] [address] [place] [address] Senia Margarita Interpretation Comment Normal [facility] Comment on above: Result Comment: Inte rpretation: [...] Customer Services to discuss available options. The [employer] recommends amniocentesis be offered to women age 35 and older. Performed By: #### C BC #### [facility] [address] [place] [address] Seniaamilcar Avila [age] Normal [facility] Comment on above: Performed By: #### C BC #### [facility] [address] [place] [address] Seniaamilcar Avila Multiple Gestation No Normal [facility] Comment on above: Performed By: #### C BC #### [facility] [address] [place] [address] Seniaamilcar Avila OSBR Risk 1 [place] [address] [facility] Comment on above: Performed By: #### C BC #### [facility] [address] [place] [address] Senia Margarita PDF . Normal [facility] Comment on above: Performed By: #### C BC #### [facility] [address] [place] [address] Seniaamilcar Avila Race Black Normal [facility] Comment on above: Performed By: #### C BC #### [facility] [address] [place] [address] Senia Avila Test Results: Negative Normal [facility] Comment on above: Performed By: #### C BC #### [facility] [address] [place] [address] Senia Avila HEP B SURFACE ANTIGEN SCREEN on 12-21-2018 HBsAg Confirmation NEUTIN Normal [facility] Comment on above: Result Comment: Unab le to obtain a valid test result for the Hepatitis B Surface Antigen confirmatory assay. Please resubmit if clinically indicated. Performed By: #### C BC #### [facility] [address] [place] [address] Senia Avila HBsAg Screen Confirm. indicated Normal Negative [facility] Comment on above: Performed By: #### C BC #### [facility] [address] [place] [address] Senia Avila HBsAg Screen Negative Normal Negative [facility] Comment on above: Performed By: #### H BSANS #### [facility] [address] [place] [address] Senia Avila HEPATITIS C VIRUS AB W/ REFL EX QUANTon 12-21-2018 HCV AB <0.1 Normal 0.0-0.9 [facility] Comment on above: Performed By: #### H CVPCRR #### [facility] [address] [place] [address] Senia Avila Interpretation: Comment Normal [facility] Comment on above: Result Comment: Nega tive Not infected with HCV, unless recent infection is suspected or other evidence exists to indicate HCV infection. Performed By: #### H CVPCRR #### [facility] [address] [place] [address] Senia Avila HGB(ELECTP) FRACTION PROFILE on 12-21-2018 Hemoglobin (Bld) [Mass/Vol] 98.2 % Normal 96.4-98.8 [facility] Comment on above: Performed By: #### C BC #### [facility] [address] [place] [address] Senia Avila Hgb A2 1.8 % Normal 1.8-3.2 [facility] Comment on above: Performed By: #### C BC #### [facility] [address] [address] Senia Margarita Hgb C 0.0 % Normal 0.0 [facility] Comment on above: Performed By: #### C BC #### [facility] [address] [address] Seniaamilcar Avila Hgb F 0.0 % Normal 0.0-2.0 [facility] Comment on above: Performed By: #### C BC #### [facility] [address] [address] Senia Margarita Hgb S 0.0 % Normal 0.0 [facility] Comment on above: Performed By: #### C BC #### [facility] [address] [place] [address] Senia Avila Hgb Solubility Negative Normal Negative [facility] Comment on above: Performed By: #### C BC #### [facility] [address] [place] [address] Seniaamilcar Avila Hgb Variant Normal [facility] Comment on above: Performed By: #### C BC #### [facility] [address] [place] [address] Senia Margarita Interpretation Comment Normal The [facility] Comment on above: Result Comment: Norm al adult hemoglobin present. Performed By: #### C BC #### [facility] [address] [place] [address] Senia Avila HIV 1 AND 2 WITH REFLEXon HIV Screen 4th Generation wRfx Non Reactive Normal Non Reactive [facility] Comment on above: Performed By: #### H IV12 #### [facility] [address] [place] [address] Senia Avila RPR QUANTon 12-21-2018 Rapid Plasma Reagin, Quant Non Reactive Normal NonRea<1:1 [facility] Comment on above: Performed By: #### R PRQ #### [facility] [address] [place] [address] Senia Avlia RUBELLA AB IGGon 12-21-2018 Rubella Antibodies, IgG 8.30 index Normal Immune >0.99 [facility] Comment on above: Result Comment: Non- immune <0.90 Equivocal 0.90 - 0.99 Immune >0.99 Performed By: #### R UBIGG #### [facility] [address] [place], [place] [address] Senia Margarita CBC AUTO DIFFon 12-20-2018 Basophils (Bld) [#/Vol] 0.0 103/ul Normal 0.0-0.1 [facility] Comment on above: Performed By: #### C BC #### [facility] [address] [place] [address] Senia Margarita Basophils/100 WBC (Bld) 0.2 % Normal 0.2-2.0 [facility] Comment on above: Performed By: #### C BC #### [facility] [address] [place] [address] Senia Margariat Eosinophils (Bld) [#/Vol] 0.1 103/ul Normal 0.0-0.7 [facility] Comment on above: Performed By: #### C BC #### [facility] [address] [place] [address] Senia Margarita Eosinophils/100 WBC (Bld) 0.9 % Normal 0.9-7.0 [facility] Comment on above: Performed By: #### C BC #### [facility] [address] [place], [place] [address] Senia Margarita Erythrocyte distribution width (RBC) [Ratio] 13.4 % Normal 11.0-15.0 [facility] Comment on above: Performed By: #### C BC #### [facility] [address] [place] [address] Senia Margarita Hematocrit (Bld) [Volume fraction] 30.8 % Critically low 36.0-48.0 [facility] Comment on above: Performed By: #### C BC #### [facility] [address] [place], [place] [address] Senia Margarita Hemoglobin (Bld) [Mass/Vol] 10.5 g/dL Critically low 12.0-16.0 [facility] Comment on above: Performed By: #### C BC #### [facility] [address] [address] Senia Margarita IG # 0.09 10e3/ul Critically high 0.00-0.03 [facility] Comment on above: Performed By: #### C BC #### [facility] [address] [place], [place] [address] Senia Margarita IG % 1.0 % Critically high 0.0-0.5 [facility] Comment on above: Performed By: #### C BC #### [facility] [address] [place], [place] [address] Senia Margarita Lymphocytes (Bld) [#/Vol] 0.8 103/ul Critically low 1.2-3.8 [facility] Comment on above: Performed By: #### C BC #### [facility] [address] [place], [place] [address] Senia Margarita Lymphocytes/100 WBC (Bld) 9.4 % Critically low 20.5-60.0 [facility] Comment on above: Performed By: #### C BC #### [facility] [address] [place], [place] [address] Senia Margarita MANUAL DIFF REQ NO Normal [facility] Comment on above: Performed By: #### C BC #### [facility] [address] [place], [place] [address] Senia Margarita MCH (RBC) [Entitic mass] 30.7 pg Normal 26.7-34.0 [facility] Comment on above: Performed By: #### C BC #### [facility] [address] [place], [place] [address] Senia Margarita MCHC (RBC) [Mass/Vol] 34.1 g/dL Normal 29.9-35.2 [facility] Comment on above: Performed By: #### C BC #### [facility] [address] [place], [place] [address] Senia Margarita MCV (RBC) [Entitic vol] 90.1 fL Normal 79.1-95.6 [facility] Comment on above: Performed By: #### C BC #### [facility] [address] [place], [place] [address] Senia Margarita Monocytes (Bld) [#/Vol] 0.6 103/ul Normal 0.3-0.8 [facility] Comment on above: Performed By: #### C BC #### [facility] [address] [place], [place] [address] Senia Margarita Monocytes/100 WBC (Bld) 6.2 % Normal 1.7-12.0 [facility] Comment on above: Performed By: #### C BC #### [facility] [address] [id number] Senia Margarita Neutrophils (Bld) [#/Vol] 7.4 103/ul Critically high 1.4-6.5 [facility] Comment on above: Performed By: #### C BC #### [facility] [address] [place], [place] [address] Senia Margarita Neutrophils/100 WBC (Bld) 82.3 % Critically high 43.0-75.0 [facility] Comment on above: Performed By: #### C BC #### [facility] [address] [place], [place] [address] Senia Margarita Platelet mean volume (Bld) [Entitic vol] 9.2 fL Critically low 9.5-13.5 [facility] Comment on above: Performed By: #### C BC #### [facility] [address] [place], [place] [address] Senia Margarita Platelets (Bld) [#/Vol] 199 103/ul Normal 150-450 [facility] Comment on above: Performed By: #### C BC #### [facility] [address] [place], [place] [address] Senia Margarita RBC (Bld) [#/Vol] 3.42 106/ul Normal 3.40-5.30 [facility] Comment on above: Performed By: #### C BC #### [facility] [address] [place], [place] [address] Senia Margarita WBC (Bld) [#/Vol] 9.0 103/ul Normal 4.0-11.0 [facility] Comment on above: Performed By: #### C BC #### [facility] [address] [place], [place] [address] Senia Avila CULTURE URINEon 12-20-2018 CULTURE URINE Culture Observations: Light growth of mixed genital katy.No potential pathogens seen. Normal [facility] Comment on above: Performed By: #### C BC #### [facility] [address] [place], [place] [address] Senia Avila GLUCOSE - 1HRon 12-20-2018 Glucose [Mass/Vol] 106 mg/dL Normal 74-106 [facility] Comment on above: Performed By: #### G LU1HR #### [facility] [address] [place], [place] [address] Senia Avila JAMEY BOX TEST PT SEND OUTo n 12-20-2018 SENT TO REF LAB 12/20/2018 Normal [facility] Comment on above: Performed By: #### N BOX #### [facility] [address] [place], [place] [address] Senia Avila TYPE AND SCREENon 12-20-2018 TYPE AND SCREEN Negative Normal [facility] Comment on above: Performed By: #### T NS #### [facility] [address] [place] [address] Senia Avila US PREG ANATOMY SINGLEon US PREG ANATOMY SINGLE Patient: SERA DIAZ Exam Date: 12/19/2018 : 2000 Gender:F Ordering : DR ENRICO SERRANO . Admission #: [id number] Family : Order #: [id number] CLICK HERE TO VIEW EXAM RADIOLOGY REPORT [...] Garces M.D. on 12/19/2018 at 15:48 Normal [facility] Vital Signs Date Time Vital Sign Value Performing Clinician Facility 12-12-2024 13:50-0400 Body mass index (BMI) [Ratio] 37.59 kg/m2 Gloria MUNSON Work Phone: [facility] 12-12-2024 13:50-0400 Body weight 99.34 kg Gloria MUNSON Work Phone: [facility] 12-12-2024 13:50-0400 Diastolic blood pressure 82 mm[Hg] Gloria MUNSON Work Phone: [facility] 12-12-2024 13:50-0400 Systolic blood pressure 120 mm[Hg] Gloria MUNSON Work Phone: [facility] 12-05-2024 14:47-0400 Body mass index (BMI) [Ratio] 37.76 kg/m2 Patience Work Phone: [facility] 12-05-2024 14:47-0400 Body weight 99.79 kg Roxanna Pa DO Work Phone: [facility] 12-05-2024 14:47-0400 Diastolic blood pressure 82 mm[Hg] Roxanna Pa DO Work Phone: [facility] 12-05-2024 14:47-0400 Systolic blood pressure 118 mm[Hg] Roxanna Pa DO Work Phone: [facility] 11-28-2024 11:31-0400 Body mass index (BMI) [Ratio] 37.76 kg/m2 Roxanna Pa DO Work Phone: [facility] 11-28-2024 11:31-0400 Body weight 99.79 kg Roxanna Pa DO Work Phone: [facility] 11-28-2024 11:31-0400 Diastolic blood pressure 70 mm[Hg] Roxanna Pa DO Work Phone: [facility] 11-28-2024 11:31-0400 Systolic blood pressure 116 mm[Hg] Roxanna Pa DO Work Phone: [facility] 11-21-2024 11:34-0400 Body mass index (BMI) [Ratio] 37.73 kg/m2 Roxanna Pa DO Work Phone: [facility] 11-21-2024 11:34-0400 Body weight 99.7 kg Roxanna Pa DO Work Phone: [facility] 11-21-2024 11:34-0400 Diastolic blood pressure 72 mm[Hg] Roxanna Pa DO Work Phone: [facility] 11-21-2024 11:34-0400 Systolic blood pressure 118 mm[Hg] Roxanna Pa DO Work Phone: [facility] 2024 11:33-0400 Body mass index (BMI) [Ratio] 36.9 kg/m2 Roxanna Pa DO Work Phone: [facility] 2024 11:33-0400 Body weight 97.52 kg Roxanna Pa DO Work Phone: [facility] 2024 11:33-0400 Diastolic blood pressure 70 mm[Hg] Roxanna Pa DO Work Phone: [facility] 2024 11:33-0400 Systolic blood pressure 116 mm[Hg] Roxanna Pa DO Work Phone: [facility] 10-23-2024 12:04-0400 Body mass index (BMI) [Ratio] 36.87 kg/m2 Gloria Griffin PA Work Phone: [facility] 10-23-2024 12:04-0400 Body weight 97.43 kg Gloria Griffin PA Work Phone: [facility] 10-23-2024 12:04-0400 Diastolic blood pressure 72 mm[Hg] Gloria Griffin PA Work Phone: [facility] 10-23-2024 12:04-0400 Systolic blood pressure 106 mm[Hg] Gloria Griffin PA Work Phone: [facility] 10-09-2024 11:52-0400 Body mass index (BMI) [Ratio] 37.08 kg/m2 Roxanna Pa DO Work Phone: [facility] 10-09-2024 11:52-0400 Body weight 97.98 kg Roxanna Pa DO Work Phone: [facility] 10-09-2024 11:52-0400 Diastolic blood pressure 74 mm[Hg] Roxanna Pa DO Work Phone: [facility] 10-09-2024 11:52-0400 Systolic blood pressure 112 mm[Hg] Roxanna Pa DO Work Phone: [facility] 09-12-2024 11:33-0400 Body mass index (BMI) [Ratio] 37.25 kg/m2 Diane Moore [employer] INVESTIGATOR Work Phone: [facility] 09-12-2024 11:33-0400 Body weight 98.43 kg Diane Moore NP Work Phone: [facility] 09-12-2024 11:33-0400 Diastolic blood pressure 76 mm[Hg] Diane Moore [employer] LA[employer]DERING INVESTIGATOR Work Phone: [facility] 09-12-2024 11:33-0400 Systolic blood pressure 110 mm[Hg] Diane Torresly [employer]ONEY LAUNDERING INVESTIGATOR Work Phone: [facility] 08-06-2024 11:21-0400 Body mass index (BMI) [Ratio] 37.73 kg/m2 Roxanna Pa DO Work Phone: [facility] 08-06-2024 11:21-0400 Body weight 99.7 kg Roxanna Pa DO Work Phone: [facility] 08-06-2024 11:21-0400 Diastolic blood pressure 80 mm[Hg] Roxanna Pa DO Work Phone: [facility] 08-06-2024 11:21-0400 Systolic blood pressure 108 mm[Hg] Roxanna Pa DO Work Phone: [facility] 07-02-2024 10:38-0500 Body mass index (BMI) [Ratio] 37.56 kg/m2 Gloria Gabino PA Work Phone: [facility] 07-02-2024 10:38-0500 Body weight 99.25 kg Gloria Gabino PA Work Phone: [facility] 07-02-2024 10:38-0500 Diastolic blood pressure 76 mm[Hg] Gloria Gabino PA Work Phone: [facility] 07-02-2024 10:38-0500 Systolic blood pressure 114 mm[Hg] Gloria Gabino PA Work Phone: [facility] 05-31-2024 11:31-0500 Body mass index (BMI) [Ratio] 37.39 kg/m2 Roxanna Pa DO Work Phone: [facility] 05-31-2024 11:31-0500 Body weight 98.79 kg Roxanna Pa DO Work Phone: [facility] 01-09-2025 11:31-0500 Diastolic blood pressure 78 mm[Hg] Roxanna Pa DO Work Phone: [facility] 05-31-2024 11:31-0500 Systolic blood pressure 110 mm[Hg] Roxanna Pa DO Work Phone: [facility] 04-30-2024 11:22-0500 Body height 162.6 cm [facility] Nurse [facility] 04-30-2024 11:21-0500 Body mass index (BMI) [Ratio] 36.39 kg/m2 [facility] Nurse [facility] 04-30-2024 11:050 Body weight 96.16 kg [facility] Nurse [facility] 04-30-2024 11:21050 Diastolic blood pressure 74 mm[Hg] [facility] Nurse [facility] 04-30-2024 11:050 Systolic blood pressure 118 mm[Hg] [facility] Nurse [facility] 12-22-2018 14:07-0400 Body weight 67.5864 kg ENRICO SERRANO [facility] Comment on above: Performed By: #### CBC #### [facility] [address] [address] Senia Avila Encounters Encounter Date Encounter Type Care Provider Facility Start: 12-12-2024 End: 12-12-2024 Bamboo flowsheet Gloria MUNSON Work Phone: [facility] Start: 12-12-2024 End: 12-12-2024 Bamboo flowsheet Gloria MUNSON Work Phone: [facility] Start: 12-12-2024 End: 12-12-2024 Office outpatient visit 15 minutes Gloria MUNSON Work Phone: [facility] Comment on above: 38 weeks gestation o f ([facility]); Third trimester ([facility]); Anemia affecting in third trimester ([facility]); Excessive growth affecting management of , antepartum, single or unspecified fetus ([facility]) Start: 12-12-2024 End: 12-12-2024 ambulatory GLORIA GRIFFIN Not Available Start: 12-05-2024 End: 12-05-2024 ambulatory ROXANNA AP Not Available Start: 12-05-2024 End: 12-05-2024 Office outpatient visit 15 minutes Roxanna Pa DO Work Phone: [facility] Comment on above: Third trimester preg tennille ([facility]); 37 weeks gestation of ([facility]) Start: 12-05-2024 End: 12-05-2024 Bamboo flowsheet Roxanna Pa DO Work Phone: [facility] Start: 12-05-2024 End: 12-05-2024 Bamboo flowsheet Roxanna Pa DO Work Phone: [facility] Start: 11-28-2024 End: 11-28-2024 Bamboo flowsheet Roxanna Pa DO Work Phone: [facility] Start: 11-28-2024 End: 11-28-2024 Bamboo flowsheet Roxanna Pa DO Work Phone: [facility] Start: 11-28-2024 End: 11-28-2024 Office outpatient visit 15 minutes Roxanna Pa DO Work Phone: [facility] Comment on above: Third trimester preg tennille ([facility]); 36 weeks gestation of ([facility]) Start: 11-28-2024 End: 11-28-2024 ambulatory ROXANNA PA Not Available Start: 11-21-2024 End: 11-21-2024 Bamboo flowsheet Roxanna Pa DO Work Phone: [facility] Start: 11-21-2024 End: 11-21-2024 Bamboo flowsheet Roxanna Pa DO Work Phone: [facility] Start: 11-21-2024 End: 11-21-2024 Office outpatient visit 15 minutes Roxanna Pa DO Work Phone: [facility] Comment on above: Third trimester preg tennille ([facility]); 35 weeks gestation of ([facility]); Anemia affecting in third trimester ([facility]) Start: 11-21-2024 End: 11-21-2024 ambulatory ROXANNA PA Not Available Start: 2024 End: 2024 Bamboo flowsheet Roxanna Pa DO Work Phone: [facility] Start: 2024 End: 2024 Bamboo flowsheet Roxanna Pa DO Work Phone: [facility] Start: 2024 End: 2024 ambulatory ROXANNA PA Not Available Start: 2024 End: 2024 Office outpatient visit 15 minutes Roxanna Pa DO Work Phone: [facility] Comment on above: Third trimester preg tennille ([facility]); 33 weeks gestation of ([facility]) Start: 10-23-2024 ambulatory ROXANNA R PA [facility] Start: 10-23-2024 End: 10-23-2024 External Result Encounter Roxanna Pa DO Work Phone: [facility] Unsolicited Start: 10-23-2024 End: 10-23-2024 External Result Encounter Roxanna Pa DO Work Phone: [facility] Unsolicited Start: 10-23-2024 End: 10-23-2024 ambulatory GLORIA GRIFFIN Not Available Start: 10-23-2024 End: 10-23-2024 Office outpatient visit 15 minutes Gloria Griffin PA Work Phone: [facility] Comment on above: 31 weeks gestation o f ; Third trimester Start: 10-23-2024 End: 10-23-2024 ambulatory ROXANNA PA Not Available Start: 10-09-2024 End: 10-09-2024 Bamboo flowsheet Roxanna Pa DO Work Phone: [facility] Start: 10-09-2024 End: 10-09-2024 Bamboo flowsheet Roxanna Pa DO Work Phone: [facility] Start: 10-09-2024 End: 10-09-2024 Office outpatient visit 15 minutes Roxanna Pa DO Work Phone: [facility] Comment on above: Third trimester preg tenn[place]; 29 weeks gestation of ; Excessive growth affecting management of , antepartum, single or unspecified fetus Start: 10-09-2024 End: 10-09-2024 ambulatory ROXANNA PA Not Available Start: 09-12-2024 End: 09-12-2024 Bamboo flowsheet Diane Moore [employer] INVESTIGATOR Work Phone: [facility] Start: 09-12-2024 End: 09-12-2024 Bamboo flowsheet Diane Moore MONE[employer] LA[employer]DERING INVESTIGATOR Work Phone: [facility] Start: 09-12-2024 End: 09-12-2024 Office outpatient visit 15 minutes Diane Moore [employer] LA[employer]DERING INVESTIGATOR Work Phone: [facility] Comment on above: Second trimester pre gnancy; 25 weeks gestation of ; Diabetes mellitus screening Start: 09-12-2024 End: 09-12-2024 ambulatory DIANE OSCAR Not Available Start: 09-04-2024 End: 09-04-2024 ambulatory ROXANNA R PA [facility] Start: 08-06-2024 End: 08-06-2024 ambulatory ROXANNA PA Not Available Start: 08-06-2024 End: 08-06-2024 Office outpatient visit 15 minutes Roxanna Pa DO Work Phone: [facility] Comment on above: Second trimester pre gnancy; 20 weeks gestation of Start: 08-06-2024 End: 08-06-2024 ambulatory GLORIA GRIFFIN Not Available Start: 07-27-2024 End: 07-27-2024 Emergency department patient visit [facility] Start: 07-25-2024 End: 07-25-2024 ambulatory GLORIA GRIFFIN [facility] Start: 07-02-2024 End: 07-02-2024 Bamboo flowsheet Gloria Griffin PA Work Phone: [facility] Start: 07-02-2024 End: 07-02-2024 Bamboo flowsheet Gloria MUNSON Work Phone: [facility] Start: 07-02-2024 End: 07-02-2024 Clinisync Result Encounter Roxanna Pa DO Work Phone: [facility] Unsolicited Start: 07-02-2024 End: 07-02-2024 Patient encounter procedure Gloria MUNSON Work Phone: [facility] Start: 07-02-2024 End: 07-02-2024 Periodic preventive med est patient 18-39 yrs Gloria MUNSON Work Phone: [facility] Comment on above: 15 weeks gestation o f ; Well woman exam with routine gynecological exam; Vaginal discharge; STD exposure; Screening, , for anatomic survey; Second trimester ; Nausea and vomiting in Start: 07-02-2024 End: 07-02-2024 ambulatory GLORIA GRIFFIN Not Available Start: 06-04-2024 End: 06-04-2024 ambulatory ROXANNA R PA [facility] Start: 05-31-2024 End: 05-31-2024 Bamboo flowsheet Roxanna [...] Unsolicited Start: 05-01-2024 End: 05-01-2024 ambulatory ROXANNA WINN [facility] Start: 04-30-2024 End: 04-30-2024 ambulatory [facility] Comment on above: GA: 6w3d Start: 04-14-2019 Evaluation and manag ement of inpatient ENRICO SERRANO Facility:[facility] Start: 04-09-2019 End: 04-12-2019 Evaluation and management of inpatient ROXANNA WINN Facility:[facility] Start: 03-15-2019 End: 03-15-2019 Patient encounter procedure ENRICO SERRANO Facility:[facility] Start: 12-21-2018 End: 12-22-2018 Patient encounter procedure ROXANNA WINN Facility:[facility] Start: 12-20-2018 End: 12-21-2018 Patient encounter procedure ENRICO SERRANO Facility:[facility] Start: 12-19-2018 End: 12-20-2018 Patient encounter procedure ENRICO SERRANO Facility:[facility] Procedures Date Procedure Procedure Detail Performing Clinician Start: 12-12-2024 Urnls dip stick/tabl et rgnt non-auto w/o micrscp Gloria MUNSON Work Phone: Start: 12-05-2024 Urnls dip stick/tabl et rgnt non-auto w/o micrscp Roxanna Pa DO Work Phone: Start: 11-28-2024 Urnls dip stick/tabl et rgnt non-auto w/o micrscp Roxanna Pa DO Work Phone: Start: 11-21-2024 Urnls dip stick/tabl et rgnt non-auto w/o micrscp Roxanna Pa DO Work Phone: Start: 2024 Urnls dip stick/tabl et rgnt non-auto w/o micrscp Roxanna Pa DO Work Phone: Start: 10-23-2024 Complete blood count with white cell differential, automated Roxanna Pa DO Work Phone: Start: 10-23-2024 Urnls dip stick/tabl et rgnt non-auto w/o micrscp Gloria MUNSON Work Phone: Start: 10-09-2024 Urnls dip stick/tabl et rgnt non-auto w/o micrscp Roxanna Pa DO Work Phone: Start: 09-12-2024 Urnls dip stick/tabl et rgnt non-auto w/o micrscp Diane Oscar M[employer]Y LA[employer]DERING INVESTIGATOR Work Phone: Start: 08-06-2024 Urnls dip stick/tabl et rgnt non-auto w/o micrscp Roxanna Pa DO Work Phone: Start: 07-02-2024 BOX TEST Roxanna Fazi o DO Work Phone: Start: 07-02-2024 Urnls dip stick/tabl et rgnt non-auto w/o micrscp Gloria MUNSON Work Phone: Start: 05-31-2024 Urnls dip stick/tabl et rgnt [...] Treatment Date Care Activity Detail Author Start: 01-21-2025 Influenza vaccination [facility] Start: 12-12-2024 End: 12-12-2024 Patient encounter procedure [facility] Comment on above: Arrived Start: 12-05-2024 End: 12-05-2024 Patient encounter procedure 12/05/2024 2:40 PM EDT Routine [facility] [address] [place] [id number] Roxanna Winn, DO [address] [place] [address] [facility] Start: 11-28-2024 End: 11-28-2024 Patient encounter procedure 11/28/2024 11:20 AM EDT Routine [facility] [address] [place] [id number] Roxanna Winn, DO [address] [place] [address] Arrived [facility] Comment on above: Arrived Start: 11-21-2024 End: 11-21-2025 CULTURE, GROUP B STREP WITH SUSCEPTIBLITY CULTURE, GROUP B STREP WITH SUSCEPTIBLITY Lab Routine Third trimester ([facility]) Expected: 11/21/2024, Expires: 11/21/2025 [facility] Work Phone: Comment on above: Expected: 11/21/2024 , Expires: 11/21/2025 Start: 11-21-2024 End: 11-21-2024 Patient encounter procedure [facility] Comment on above: Arrived Start: 2024 End: 2024 Patient encounter procedure 2024 11:20 AM EDT Routine [facility] [address] [place] [id number] Roxanna Winn, DO [address] [place] [address] [facility] Start: 10-23-2024 End: 10-23-2024 Patient encounter procedure 10/23/2024 11:30 AM EDT Routine [facility] [address] [place] [id number] Gloria Griffin PA [address] [place] [address] [facility] Start: 10-23-2024 End: 10-23-2024 Professional / ancillary services management 10/23/2024 11:00 AM EDT Ancillary Procedure [facility] [address] [place] [address] [facility] Start: 10-09-2024 End: 02-09-2025 US for US OB follow up transabdominal approach Imaging Routine Excessive growth affecting management of , antepartum, single or unspecified fetus Expected: 10/09/2024, Expires: 02/09/2025 [facility] Comment on above: Expected: 10/09/2024 , Expires: 02/09/2025 Start: 10-09-2024 End: 10-09-2024 Patient encounter procedure [facility] Comment on above: Arrived Start: 09-12-2024 End: 09-12-2025 CBC panel - Blood by Automated count CBC Lab Routine Diabetes mellitus screening Expected: 09/12/2024 (Approximate), Expires: 09/12/2025 [facility] Work Phone: Comment on above: Expected: 09/12/2024 (Approximate), Expires: 09/12/2025 Start: 09-12-2024 End: 09-12-2025 Measurement of glucose 1 hour after glucose challenge for glucose tolerance test Glucose tolerance, 1 hour Lab Routine Diabetes mellitus screening Expected: 09/12/2024 (Approximate), Expires: 09/12/2025 [facility] Comment on above: Expected: 09/12/2024 (Approximate), Expires: 09/12/2025 Start: 09-12-2024 End: 09-12-2024 Patient encounter procedure 09/12/2024 11:30 AM EDT Routine [facility] [address] [facility] [place] [place] [address] Diane Moore NP [address] [place] [address] Arrived [facility] Comment on above: Arrived Start: 09-05-2024 End: 09-05-2024 Patient encounter procedure 09/05/2024 10:30 AM EDT Routine [facility] [address] [place] [id number] Gloria Griffin PA [address] [facility] [address] [place], [place] [id number] [facility] Start: 08-06-2024 End: 08-06-2024 Patient encounter procedure 08/06/2024 11:10 AM EDT Routine [facility] [address] [place] [id number] Roxanna Winn DO [address] [facility] [place] [address] [facility] Start: 08-06-2024 End: 08-06-2024 Professional / ancillary services management 08/06/2024 10:00 AM EDT Ancillary Procedure [facility] [address] [place] [address] [facility] Start: 07-02-2024 End: 12-30-2024 Alpha fetoprotein, maternal Alpha fetoprotein, maternal Lab Routine 15 weeks gestation of Expected: 07/02/2024 (Approximate), Expires: 12/30/2024 [facility] Comment on above: Expected: 07/02/2024 (Approximate), Expires: 12/30/2024 Start: 07-02-2024 End: 07-02-2025 US for US OB 14+ weeks anatomy scan Imaging Routine Screening, , for anatomic survey Expected: 07/02/2024, Expires: 07/02/2025 [facility] Comment on above: Expected: 07/02/2024 , Expires: 07/02/2025 Start: 07-02-2024 End: 07-02-2024 Patient encounter procedure [facility] Comment on above: Arrived Start: 05-31-2024 End: 05-31-2024 Patient encounter procedure 05/31/2024 10:50 AM EST Routine [facility] [address] [place] [address] Roxanna Winn DO [address] [facility] [place] [address] [facility] Start: 04-30-2024 End: 04-30-2025 ABO/Rh ABO/Rh Lab Routine Missed menses , unspecified gestational age Expected: 04/30/2024 (Approximate), Expires: 04/30/2025 [facility] Comment on above: Expected: 04/30/2024 (Approximate), Expires: 04/30/2025 Start: 04-30-2024 End: 04-30-2025 Blood type and Indirect antibody screen panel - Blood Type and screen Lab Routine Missed menses , unspecified gestational age Expected: 04/30/2024 (Approximate), Expires: 04/30/2025 [facility] Work Phone: Comment on above: Expected: 04/30/2024 (Approximate), Expires: 04/30/2025 Start: 04-30-2024 End: 04-30-2025 Drugs of abuse panel - Urine by Screen method Rapid drug screen, urine Lab Routine , unspecified gestational age Encounter for supervision of normal first in first trimester Expected: 04/30/2024 (Approximate), Expires: 04/30/2025 [facility] Comment on above: Expected: 04/30/2024 (Approximate), Expires: 04/30/2025 Start: 04-30-2024 End: 04-30-2025 US Pelvis transvaginal US OB transvaginal Imaging Routine Missed menses Expected: 04/30/2024 (Approximate), Expires: 04/30/2025 [facility] Comment on above: Expected: 04/30/2024 (Approximate), Expires: 04/30/2025 Bacteria identified in Urine by Culture Urine culture Microbiology Routine Missed menses Ordered: 04/30/2024 [facility] Comment on above: Ordered: 04/30/2024 CBC W Auto Different ial panel - Blood CBC and differential Lab Routine Missed menses , unspecified gestational age Ordered: 04/30/2024 [facility] Comment on above: Ordered: 04/30/2024 CBC W Auto Different ial panel - Blood CBC and differential Lab Routine 29 weeks gestation of Ordered: 10/09/2024 [facility] Comment on above: Ordered: 10/09/2024 CBC W Auto Different ial panel - Blood CBC auto differential Lab Routine 10/23/2024 3:02 PM EDT [facility] Work Phone: CHLAMYDIA TRACHOMATI S (GENITO/STI) CHLAMYDIA TRACHOMATIS (GENITO/STI) Lab Routine STD exposure Ordered: 07/02/2024 [facility] Comment on above: Ordered: 07/02/2024 Cytology Cervical or vaginal smear or scraping study Pap Smear Pathology and Cytology Routine Well woman exam with routine gynecological exam Ordered: 07/02/2024 [facility] Comment on above: Ordered: 07/02/2024 Hemoglobin A1c/Hemoglobin.total in Blood Hemoglobin A1c Lab Routine Missed menses , unspecified gestational age Ordered: 04/30/2024 [facility] Comment on above: Ordered: 04/30/2024 Hemoglobin A1c/Hemoglobin.total in Blood Hemoglobin A1c Lab Routine 29 weeks gestation of Ordered: 10/09/2024 [facility] Work Phone: Comment on above: Ordered: 10/09/2024 Hepatitis B virus surface Ag [Presence] in Serum or Plasma by Immunoassay Hepatitis B surface antigen Lab Routine Missed menses , unspecified gestational age Ordered: 04/30/2024 [facility] Comment on above: Ordered: 04/30/2024 Hepatitis C virus Ab [Presence] in Serum or Plasma by Immunoassay Hepatitis C antibody Lab Routine Missed menses , unspecified gestational age Ordered: 04/30/2024 [facility] Comment on above: Ordered: 04/30/2024 HIV-1/HIV-2 antigen/antibody combination immunoassay HIV-1 and HIV-2 antibodies Lab Routine Missed menses , unspecified gestational age Ordered: 04/30/2024 [facility] Comment on above: Ordered: 04/30/2024 Neisseria gonorrhoea e DNA [Presence] in Unspecified specimen by CECIL with probe detection Neisseria gonorrhea DNA probe, direct Lab Routine STD exposure Ordered: 07/02/2024 [facility] Comment on above: Ordered: 07/02/2024 Reagin Ab [Presence] in Serum by RPR RPR Lab Routine Missed menses , unspecified gestational age Ordered: 04/30/2024 [facility] Comment on above: Ordered: 04/30/2024 Rubella antibody, IgG Rubella an tibody, IgG Lab Routine Missed menses , unspecified gestational age Ordered: 04/30/2024 [facility] Comment on above: Ordered: 04/30/2024 SURESWAB(R) ADVANCED VAGINITIS PLUS, TMA SURESWAB(R) ADVANCED VAGINITIS PLUS, TMA Pathology and Cytology Routine Vaginal discharge Ordered: 07/02/2024 [facility] Work Phone: Comment on above: Ordered: 07/02/2024 Payers Date Payer Category Payer Medicaid [facility] [id number] 2023 Medicaid [id number] 2001 Unknown [id number] [id number] 2001 Unknown [id number] 2.840.1.920494.3.579.2.1285 2001 Unknown [id number] 2..840.1.552034.3.579.2.1285 2001 Unknown [id number] 2001 Unknown [id number] 2001 Unknown [id number] 2.16.840.1.375420.3.579.2.1286 2001 Unknown [id number] 2.16.840.1.077068.3.579.2.1258 2001 Unknown [id number] 2.16.840.1.871101.3.579.2.1258 2001 Unknown [id number] 2.16.840.1.024181.3.579.2.1258 2001 Unknown [id number] 2.16.840.1.506571.3.579.2.1258 2001 Unknown [id number] 2.16.840.1.009047.3.579.2.1258 2001 Unknown [id number] 2.16.840.1.002802.3.579.2.1258 2001 Unknown [id number] 2.16.840.1.863055.3.579.2.1258 2001 Unknown [id number] 2.16.840.1.260669.3.579.2.1258 2001 Unknown [id number] 2.16.840.1.694879.3.579.2.1258 2001 Unknown [id number] 2.16.840.1.667683.3.579.2.1258 2001 Unknown [id number] 2.16.840.1.498080.3.579.2.1258 2001 Unknown [id number] 2.16.840.1.773611.3.579.2.1258 2001 Unknown [id number] 2.16.840.1.311562.3.579.2.1258 2001 Unknown [id number] 2.16.840.1.064617.3.579.2.1258 1977 Unknown [id number] 2.16.840.1.253942.3.579.2. 1977 Unknown [id number] 2.16.840.1.859340.3.579.2.593 1977 Unknown [id number] 2.16.840.1.333314.3.579.2.593 1977 Unknown [id number] 2.16.840.1.882826.3.579.2.593 1977 Unknown [id number] 2.16.840.1.025196.3.579.2.593 1977 Unknown [id number] 2.16.840.1.736172.3.579.2.593 1959 Unknown [id number] Social History Date Type Detail Facility Tobacco smoking stat [facility] Tobacco smoking consumption unknown [facility] Start: 03-30-2024 [facility] Start: 2001 Sex assigned at Not on file [facility] Gender identity Not on file [facility] are Goals Date Patient Goal Desired Activity /State Personal health goal Clinical Notes 04-30-2024 to 12-12-2024 Diane Moore NP - 12/12/2024 1:50 PM Modesto Hsieh LPN - 12/05/2024 2:40 PM Modesto Hsieh LPN - 11/28/2024 11:20 AM ARPIT Eaton - 11/21/2024 11:30 AM EDT Note Date & Type Note Facility 12-12-2024 History of Presen t illness Narrative Reason [...] times daily as needed for nausea. Vit w/Ht-Dyutuzfjd-NZ (PNV PO) Take by mouth ALLERGIES No Known Allergies PROBLEMS Active Ambulatory Problems Diagnosis Date Noted 10 weeks gestation of ([facility]) 05/31/2024 First trimester ([facility]) 05/31/2024 31 weeks gestation of ([facility]) 10/23/2024 Third trimester ([facility]) 10/23/2024 Resolved Ambulatory Problems Diagnosis Date [...] nursing note reviewed. Exam conducted with a beam warper present. Vitals: Estimated body mass index is 37.59 kg/m as calculated from the following: Height as of 24: 5' 4 . Weight as of this encounter: 219 lb. BP: 120/82 Patient's last menstrual period was 02/24/2024. ASSESSMENT & PLAN ICD-10-CM 1. 38 weeks gestation of ([facility]) Z3A.38 POCT urinalysis dipstick manually resulted 2. Third trimester ([facility]) Z34.93 POCT urinalysis dipstick manually resulted 3. Anemia affecting in third trimester ([facility]) O99.013 4. Excessive growth affecting management of , antepartum, single or unspecified fetus ([facility]) O36.60X0 Return OB: Patient presents today for [...] of: ARPIT Garcia documented in this encounter [facility] 12-05-2024 History of Presen t illness Narrative Reason [...] times daily as needed for nausea. Vit w/Vn-Relyqhnxy-HH (PNV PO) Take by mouth ALLERGIES No Known Allergies PROBLEMS Active Ambulatory Problems Diagnosis Date Noted 10 weeks gestation of ([facility]) 05/31/2024 First trimester ([facility]) 05/31/2024 31 weeks gestation of ([facility]) 10/23/2024 Third trimester ([facility]) 10/23/2024 Resolved Ambulatory Problems Diagnosis Date [...] nursing note reviewed. Exam conducted with a beam warper present. Vitals: Estimated body mass index is 37.76 kg/m as calculated from the following: Height as of 24: 5' 4 . Weight as of this encounter: 220 lb. BP: 118/82 Patient's last menstrual period was 02/24/2024. ASSESSMENT & PLAN ICD-10-CM 1. Third trimester ([facility]) Z34.93 POCT urinalysis dipstick manually resulted 2. 37 weeks gestation of ([facility]) Z3A.37 Return OB: Patient presents today for [...] by Margarita Hsieh LPN on behalf of: Roxanna Winn DO documented in this encounter [facility] 11-28-2024 History of Presen t illness Narrative Reason [...] times daily as needed for nausea. Vit w/Ea-Hfckpsiqy-AE (PNV PO) Take by mouth ALLERGIES No Known Allergies PROBLEMS Active Ambulatory Problems Diagnosis Date Noted 10 weeks gestation of ([facility]) 05/31/2024 First trimester ([facility]) 05/31/2024 31 weeks gestation of ([facility]) 10/23/2024 Third trimester ([facility]) 10/23/2024 Resolved Ambulatory Problems Diagnosis Date [...] nursing note reviewed. Exam conducted with a beam warper present. Vitals: Estimated body mass index is 37.76 kg/m as calculated from the following: Height as of 04/30/24: 5' 4 . Weight as of this encounter: 220 lb. BP: 116/70 Patient's last menstrual period was 02/24/2024. ASSESSMENT & PLAN ICD-10-CM 1. Third trimester ([facility]) Z34.93 POCT urinalysis dipstick manually resulted 2. 36 weeks gestation of ([facility]) Z3A.36 POCT urinalysis dipstick manually resulted Return OB: Patient presents today for a routine obstetrics appointment. Patient is currently 36w5d . Patient states she is doing well but has complaints of being tired due to current . Patient has verbalizes frequent movement. labor precautions was discussed/given and patient was instructed to perform kick counts three times a day. Discussed induction with pt in detail. Orders Placed This Encounter Procedures POCT urinalysis dipstick manually resulted Follow Up: Patient is to return to office in 1 week for routine OB appointment. Documented by Margarita Hsieh LPN on behalf of: Roxanna Winn DO documented in this encounter [facility] 11-21-2024 History of Presen t illness Narrative Reason [...] times daily as needed for nausea. Vit w/Pe-Zghfpfnzh-TM (PNV PO) Take by mouth ALLERGIES No Known Allergies PROBLEMS Active Ambulatory Problems Diagnosis Date Noted 10 weeks gestation of ([facility]) 05/31/2024 First trimester ([facility]) 05/31/2024 31 weeks gestation of ([facility]) 10/23/2024 Third trimester ([facility]) 10/23/2024 Resolved Ambulatory Problems Diagnosis Date [...] Vitals: Estimated body mass index is 37.73 kg/m as calculated from the following: Height as of 04/30/24: 5' 4 . Weight as of this encounter: 219 lb 12.8 oz. BP: 118/72 Patient's last menstrual period was 02/24/2024. ASSESSMENT & PLAN ICD-10-CM 1. Third trimester ([facility]) Z34.93 POCT urinalysis dipstick manually resulted CULTURE, GROUP B STREP WITH SUSCEPTIBLITY CULTURE, GROUP B STREP WITH SUSCEPTIBLITY 2. 35 weeks gestation of ([facility]) Z3A.35 POCT urinalysis dipstick manually resulted 3. Anemia affecting in third trimester ([facility]) O99.013 Patient is doing well but has [...] Documented by ARPIT Garcia on behalf of: Roxanna Winn DO documented in this encounter [facility] 2024 History of Presen t illness Narrative Reason [...] times daily as needed for nausea. Vit w/Cy-Sgmalpxcq-WT (PNV PO) Take by mouth ALLERGIES No Known Allergies PROBLEMS Active Ambulatory Problems Diagnosis Date Noted 10 weeks gestation of ([facility]) 05/31/2024 First trimester ([facility]) 05/31/2024 31 weeks gestation of ([facility]) 10/23/2024 Third trimester ([facility]) 10/23/2024 Resolved Ambulatory Problems Diagnosis Date [...] Vitals: Estimated body mass index is 36.9 kg/m as calculated from the following: Height as of 24: 5' 4 . Weight as of this encounter: 215 lb. BP: 116/70 Patient's last menstrual period was 02/24/2024. ASSESSMENT & PLAN ICD-10-CM 1. Third trimester ([facility]) Z34.93 POCT urinalysis dipstick manually resulted 2. 33 weeks gestation of ([facility]) Z3A.33 Return OB: Patient presents today [...] of: irving garcia documented in this encounter [facility] 10-23-2024 History of Presen t illness Narrative Reason for Appointment: Patient ID: Sera Diaz is a 23 y.o. female who presents for No chief complaint on file. Patient presents today for Return OB appointment. MEDICATIONS Current Outpatient Medications Medication Instructions metoclopramide (REGLAN) 10 mg, Oral, 3 times daily before meals, Take 1 tablet by mouth 30 minutes prior to meals 3 times daily as needed for nausea. Vit w/Ez-Ongdjtcnv-HT (PNV PO) Take by mouth ALLERGIES No Known Allergies PROBLEMS Active Ambulatory Problems Diagnosis Date Noted 10 weeks gestation of 05/31/2024 First trimester 05/31/2024 31 weeks gestation of 10/23/2024 Third trimester 10/23/2024 Resolved Ambulatory Problems Diagnosis Date Noted [...] nursing note reviewed. Exam conducted with a beam warper present. Vitals: Estimated body mass index is 37.08 kg/m as calculated from the following: Height as of 04/30/24: 5' 4 . Weight as of 10/09/24: 216 lb. BP: Patient's last menstrual period was 02/24/2024. ASSESSMENT & PLAN ICD-10-CM 1. 31 weeks gestation of Z3A.31 POCT urinalysis dipstick manually resulted 2. Third trimester Z34.93 POCT urinalysis dipstick manually resulted Patient presents today for a routine obstetrics appointment. Patient is currently 31w4d with a Estimated Date of Delivery: 12/21/24. Patient had growth scan done prior to today's appointment, which showed EFW 58%tile, ROSALES 16.9 and FHR 161. Reprinted patients order for CBC/Hba1c to have obtained today after appointment. Patient denies any complaints at this time. Patient to return to clinic in 2 weeks for routine OB appointment. Documented by Kristi Malave LPN on behalf of: ARPIT Garcia documented in this encounter [facility] 10-09-2024 History of Presen t illness Narrative Reason [...] times daily as needed for nausea. Vit w/Kc-Ypdjwjqvm-VG (PNV PO) Take by mouth ALLERGIES No Known Allergies PROBLEMS Active Ambulatory Problems Diagnosis Date Noted 10 weeks gestation of 05/31/2024 First trimester 05/31/2024 Resolved Ambulatory Problems Diagnosis Date Noted No [...] nursing note reviewed. Exam conducted with a beam warper present. Vitals: Estimated body mass index is 37.25 kg/m as calculated from the following: Height as of 04/30/24: 5' 4 . Weight as of 09/12/24: 217 lb. BP: Patient's last menstrual period was 02/24/2024. ASSESSMENT & PLAN ICD-10-CM 1. Third trimester Z34.93 POCT urinalysis dipstick manually resulted CANCELED: POCT urinalysis dipstick manually resulted 2. 29 weeks gestation of Z3A.29 Hemoglobin A1c CBC and differential CANCELED: Hemoglobin A1c Return OB: Patient presents today for a routine obstetrics appointment. Patient is currently 29w4d . Patient states she is doing well but has complaints of being tired due to current . Patient has verbalizes frequent movement. labor precautions was discussed/given and patient was instructed to perform kick counts three times a day. Pt given growth ultrasound to have obtained in two weeks. Pt given CBC/HGBA1C. Orders Placed This Encounter Procedures Hemoglobin A1c CBC and differential POCT urinalysis dipstick manually resulted Follow Up: Patient is to return to office in 2 week for routine OB appointment. Documented by Margarita Hsieh LPN on behalf of: Roxanna Winn DO documented in this encounter [facility] 09-12-2024 History of Presen t illness Narrative Reason [...] times daily as needed for nausea. Vit w/Ca-Igypidcmz-UR (PNV PO) Take by mouth ALLERGIES No Known Allergies PROBLEMS Active Ambulatory Problems Diagnosis Date Noted 10 weeks gestation of 05/31/2024 First trimester 05/31/2024 Resolved Ambulatory Problems Diagnosis Date Noted No [...] nursing note reviewed. Exam conducted with a beam warper present. Vitals: Estimated body mass index is 37.73 kg/m as calculated from the following: Height as of 04/30/24: 5' 4 . Weight as of 08/06/24: 219 lb 12.8 oz. BP: Patient's last menstrual period was 02/24/2024. ASSESSMENT & PLAN ICD-10-CM 1. Second trimester Z34.92 POCT urinalysis dipstick manually resulted 2. 25 weeks gestation of Z3A.25 3. Diabetes mellitus screening Z13.1 CBC Glucose tolerance, 1 hour CBC Glucose tolerance, 1 hour Return OB: Patient presents today for a routine obstetrics appointment. Patient is currently 25w5d . Patient states she is doing well but has complaints of being tired due to current . Patient has verbalizes frequent movement. labor precautions was discussed/given and patient was instructed to perform kick counts three times a day. Orders Placed This Encounter Procedures CBC Glucose tolerance, 1 hour POCT urinalysis dipstick manually resulted Follow Up: Patient is to return to office in 3 week for routine OB appointment. Patient with Ultrasound 09/04/24 completed at [facility] with ROSALES subjectively normal. Documented by Shirin Ngo MA on behalf of: Diane Moore NP documented in this encounter [facility] 08-06-2024 History of Presen t illness Narrative Reason for Appointment: Patient ID: Sera Diaz is a 23 y.o. female who presents for Routine Visit Patient presents today for Return OB appointment. Current Medications: has a current medication list which includes the following prescription(s): metoclopramide and vit w/ez-hjldfutlm-yv. Medical History: Active Ambulatory Problems Diagnosis Date Noted 10 weeks gestation of 05/31/2024 First trimester 05/31/2024 Resolved Ambulatory Problems Diagnosis Date Noted No Resolved Ambulatory Problems No Additional Past Medical History No family history on file. Social History Tobacco Use Smoking status: Not on file Smokeless tobacco: Not on file Substance Use Topics Alcohol use: Not on file Drug use: Not on file No past surgical history on file. No Known Allergies Review of Systems: Review of Systems All other systems reviewed and are negative. Objective Physical Exam Constitutional: Appearance: Normal appearance. She [...] nursing note reviewed. Exam conducted with a beam warper present. Vitals: Estimated body mass index is 37.73 kg/m as calculated from the following: Height as of 04/30/24: 5' 4 . Weight as of this encounter: 219 lb 12.8 oz. BP: 108/80 Patient's last menstrual period was 02/24/2024. Assessment/Plan Encounter Diagnosis: ICD-10-CM 1. Second trimester Z34.92 POCT urinalysis dipstick manually resulted 2. 20 weeks gestation of Z3A.20 Return OB: Patient presents today for a routine obstetrics appointment. Patient is currently 20w3d . Patient states she is doing well but has complaints of being tired due to current . Patient has verbalizes frequent movement. labor precautions was discussed/given and patient was instructed to perform kick counts three times a day. Orders Placed This Encounter Procedures POCT urinalysis dipstick manually resulted Follow Up: Patient is to return to office in 4 week for routine OB appointment. Documented by Roxanna Winn DO on behalf of: Roxanna Winn DO documented in this encounter [facility] 07-02-2024 History of Presen t illness Narrative Reason for Appointment: Patient ID: Sera Diaz is a 23 y.o. female who presents for Routine Visit, Well Women Visit, and STI Screening Patient presents today for Return OB appointment. MEDICATIONS Current Outpatient Medications Medication Instructions metoclopramide (REGLAN) 10 mg, Oral, 3 times daily before meals, Take 1 tablet by mouth 30 minutes prior to meals 3 times daily as needed for nausea. Vit w/Do-Yjukmsmpm-WA (PNV PO) Take by mouth ALLERGIES No Known Allergies PROBLEMS Active Ambulatory Problems Diagnosis Date Noted 10 weeks gestation of 05/31/2024 First trimester 05/31/2024 Resolved Ambulatory Problems Diagnosis Date Noted No [...] Constitutional: Appearance: Normal appearance. She is well-developed. Genitourinary: Vulva normal. Right Adnexa: not tender and no mass present. Left Adnexa: not tender and no mass present. No cervical discharge. Breasts: Breasts are soft. Right: Normal. Left: Normal. HENT: Head: Normocephalic. Nose: Nose normal. Mouth/Throat: Mouth: Mucous membranes are moist. Cardiovascular: Rate and Rhythm: Normal rate and regular rhythm. Pulmonary: Effort: Pulmonary effort is normal. Breath sounds: Normal breath sounds. Abdominal: General: Bowel sounds are normal. There is no distension. Palpations: Abdomen is soft. Tenderness: There is no abdominal tenderness. There is no guarding or rebound. Musculoskeletal: General: No swelling. Normal range of motion. Cervical back: Normal range of motion. Right lower leg: No edema. Left lower leg: No edema. Neurological: General: No focal deficit present. Mental Status: She is alert and oriented to person, place, and time. Skin: General: Skin is warm and dry. Psychiatric: Mood and Affect: Mood normal. Behavior: Behavior normal. Vitals and nursing note reviewed. Exam conducted with a beam warper present. Vitals: Estimated body mass index is 37.56 kg/m as calculated from the following: Height as of 04/30/24: 5' 4 . Weight as of this encounter: 218 lb 12.8 oz. BP: 114/76 Patient's last menstrual period was 02/24/2024. ASSESSMENT & PLAN ICD-10-CM 1. 15 weeks gestation of Z3A.15 Alpha fetoprotein, maternal Alpha fetoprotein, maternal 2. Well woman exam with routine gynecological exam Z01.419 Pap Smear 3. Vaginal discharge N89.8 SURESWAB(R) ADVANCED VAGINITIS PLUS, TMA 4. STD exposure Z20.2 CHLAMYDIA TRACHOMATIS (GENITO/STI) Neisseria gonorrhea DNA probe, direct 5. Screening, , for anatomic survey Z36.89 US OB 14+ weeks anatomy scan 6. Second trimester Z34.92 7. Nausea and vomiting in O21.9 metoclopramide (Reglan) 10 MG tablet Return OB/Annual Exam: Patient presents today for an annual exam/routine obstetrics appointment. Patient is currently 15w3d . Patient is doing well and states she has no complaints. Pap/cultures was obtained without difficulty and patient was given [facility] order to have obtained. Orders Placed This Encounter Procedures US OB 14+ weeks anatomy scan CHLAMYDIA TRACHOMATIS (GENITO/STI) Neisseria gonorrhea DNA probe, direct Alpha fetoprotein, maternal Follow Up: Patient is to return to our office in 4 weeks for routine OB appointment Documented by Gayatri Smith LPN on behalf of: ARPIT Garcia documented in this encounter [facility] 05-31-2024 History of Presen t illness Narrative Reason for Appointment: Patient ID: Sera Diaz is a 23 y.o. female who presents for Routine Visit Patient presents today for Return OB appointment. MEDICATIONS Current Outpatient Medications Medication Instructions Vit w/Ls-Szshvkddy-TM (PNV PO) Take by mouth ALLERGIES No [...] nursing note reviewed. Exam conducted with a beam warper present. Vitals: Estimated body mass index is [...] or undercooked meat, [facility] Patient has been consulted regarding any further do's and don'ts of . Patient voiced understanding and all questions and concerns were answered. Orders Placed This Encounter Procedures POCT urinalysis dipstick manually resulted Follow Up: Patient is to return in 4 weeks for routine OB appointment. Documented by Kristi Malave LPN on behalf of: Roxanna Winn DO documented in this encounter [facility] 04-30-2024 History of Presen t illness Narrative [...] list which includes the following prescription(s): vit w/js-mwvqolzdq-mm. Medical History: Active Ambulatory Problems Diagnosis Date [...] desire to have her labs done in [facility]. Advised pt to please have them fax [...] or undercooked meat, and [facility]. Patient has also been advised to not [...] in this encounter [facility] Evaluation note Diagnosis Missed menses , unspecified gestational age Encounter for supervision of normal first in first trimester 6 weeks gestation of documented [facility] Diagnosis 10 weeks gestation of First trimester state, incidental [facility]* Diagnosis 15 weeks gestation of Well woman exam with routine gynecological exam Routine gynecological examination Vaginal discharge Leukorrhea, not specified as infective STD exposure Screening, , for anatomic survey Encounter for anatomic survey Second trimester state, incidental Nausea and vomiting in Unspecified vomiting of , unspecified as to episode of care [facility] Diagnosis Second trimester state, incidental 20 weeks gestation of documented [facility]* Diagnosis Second trimester state, incidental 25 weeks gestation of Diabetes mellitus screening Screening for diabetes mellitus documented [facility] Diagnosis Third trimester state, incidental 29 weeks gestation of Excessive growth affecting management of , antepartum, single or unspecified fetus [facility] Diagnosis 31 weeks gestation of Third trimester state, incidental [facility] Diagnosis Third trimester ([facility]HS-HCC) state, incidental 33 weeks gestation of ([facility]HS-HCC) [facility] Diagnosis Third trimester ([facility]HS-HCC) state, incidental 35 weeks gestation of (HHS-HCC) Anemia affecting in third trimester (HHS-HCC) [facility] Diagnosis Third trimester ([facility]HS-HCC) state, incidental 36 weeks gestation of ([facility]HS-HCC) [facility] Diagnosis Third trimester (HHS-HCC) state, incidental 37 weeks gestation of ([facility]HS-HCC) [facility] Diagnosis 38 weeks gestation of ([facility]HS-HCC) Third trimester (HHS-HCC) state, incidental Anemia affecting in third trimester (HHS-HCC) Excessive growth affecting management of , antepartum, single or unspecified fetus ([facility]HS-HCC) documented in this encounter [facility] Summary Purpose Family History No Family History Records FoundNo Family History Records FoundNo Family History Records Found Advance Directives No Advanced Directives Records FoundNo Advanced Directives Records FoundNo Advanced Directives Records Found Additional Source Comments INFORMATION SOURCE (unrecogn ized section and content) DATE CREATED AUTHOR 04/17/2019 [facility] DATE CREATED AUTHOR AUTHOR'S ORGANIZ ATION 10/24/2024 [facility] DATE CREATED AUTHOR AUTHOR'S ORGANIZ ATION 12/14/2024 [facility] EPIC Reason for Visit (unrecogniz ed section and content) Reason Comments Amenorrhea Reason Comments Routine Visit Reason Comments Routine Visit Well Women Visit STI Screening FOR RECORDS PERTAINING TO PATIENTS WHO ARE [...] BE BASED ON THE PRIMARY CLINICAL RECORDS. [facility] [employer] [facility]. provides no warranty or guarantee of the accuracy or completeness of information in this document.
--- OUTSIDE RECORDS SUMMARY | 2024-12-14 04:57 | XMS_ITS | Clinical Summary ---
Author Organization [facility] Healthcare Address [address] [place] [address] Care Team Providers Care Dry Boss Name Role Phone Unavailable Primary Care Provider Unavailabl e Allergies No known active allergies Medications Vit w/Gl-Eqwfvghrs-PH (PNV PO) Take by mouth Active metoclopramide (Reglan) 10 MG tabletIndications:N ausea and vomiting in ([facility]) Take 1 tablet (10 mg) by mouth in the morning and 1 tablet (10 mg) at noon and 1 tablet (10 mg) in the evening. Take before meals. Take 1 tablet by mouth 30 minutes prior to meals 3 times daily as needed for nausea.. 90 tablet 5 Active iron polysaccharides (ProFe) 391.3 (180 Fe) MG capsuleIndications: Anemia affecting in third trimester ([facility]) Take 1 capsule (391.3 mg) by mouth Daily 30 capsule 6 5 11/24/19 25 Active Problems Problem Noted Date Diagnosed Date 31 weeks gestation of ([facility]) 2024 Third trimester ([facility]) 10/23/2024 10 weeks gestation of ([facility]) 2024 First trimester ([facility]) 05/31/2024 Estimated Date of Delivery Comme nts Yes 12/21/2024 Based on Ultraso und Encounters Date Type Department Care Team Description 12/12/2024 1:50 PM EDT Routine [facility] [address] [place] [address] Gloria Lloyd PA 38 weeks gestation of ([facility]); Third trimester ([facility]); Anemia affecting in third trimester ([facility]); Excessive growth affecting management of , antepartum, single or unspecified fetus ([facility]) 12/12/2024 Bamboo flowsheet [facility] [address] [place] [address] Gloria Lloyd PA 12/05/2024 2:40 PM EDT Routine [facility] [address] [place] [address] Alexander Winn, Third trimester ([facility]); 37 weeks gestation of ([facility]) 12/05/2024 Bamboo flowsheet [facility] [address] [place] [address] Alexander Winn DO 11/28/2024 11:20 AM EDT Routine [facility] [address] [place] [address] Alexander Winn, Third trimester ([facility]); 36 weeks gestation of ([facility]) 11/28/2024 Abstract [facility] [address] [place] [address] Marsha Poole MA 11/28/2024 Bamboo flowsheet [facility] [address] [place] [address] Alexander Winn DO 11/21/2024 11:30 AM EDT Routine [facility] [address] [place] [address] Alexander Winn, Third trimester ([facility]); 35 weeks gestation of ([facility]); Anemia affecting in third trimester ([facility]) 11/21/2024 Bamboo flowsheet [facility] [address] [place] [address] Alexander Winn DO 2024 11:20 AM EDT Routine [facility] [address] [place] [address] Alexander Winn, Third trimester ([facility]); 33 weeks gestation of ([facility]) 2024 Bamboo flowsheet [facility] [address] [place] [address] Alexander Winn, 10/24/2024 Telephone [facility] [address] [place] [address] Alexander Winn, 10/24/2024 Abstract [facility] [address] [place] [address] Alexander Winn, 10/23/2024 11:30 AM EDT Routine [facility] [address] [place] [address] Gloria Lloyd PA 31 weeks gestation of ([facility]); Third trimester ([facility]) 10/23/2024 11:00 AM EDT Ancillary Procedure [facility] [address] [place] [address] Excessive growth affecting management of , antepartum, single or unspecified fetus ([facility]) 10/23/2024 External Result Encounter [facility] External Department Unsolicited Alexander Winn, 10/09/2024 11:10 AM EDT Routine [facility] [address] [place] [address] Alexander Winn, Third trimester ([facility]); 29 weeks gestation of ([facility]); Excessive growth affecting management of , antepartum, single or unspecified fetus ([facility]); Diabetes mellitus screening; Subchorionic hemorrhage of placenta in second trimester ([facility]) 10/09/2024 Bamboo flowsheet [facility] [address] [place] [address] Alexander Winn, 09/14/2024 Abstract [facility] [address] [place] [address] Alexander Winn DO from Last 3 Months [...] (219 lb) 12/12/2024 1:50 PM EDT Height 162.6 cm (5' 4 ) 04/30/2024 11:22 AM EST Body Mass Index 37.59 04/30/2024 11:22 AM EST Plan of Treatment Health Maintenance Due Date Last Done Comments Influenza Vaccine (#1) 2025 Goals Goal Patient Goal Type Associated Problems Recent Progress Patient-Stated? Author Reminders Care Plan OB Reminders No Open Scheduling, Background Procedures Procedure Name Priority Date/Time Associated Diagnosis Comments POCT URINALYSIS DIPSTICK Routine 12/12/2024 1:57 PM EDT 38 weeks gestation of ([facility]) Third trimester ([facility]) POCT URINALYSIS DIPSTICK Routine 12/05/2024 2:55 PM EDT Third trimester ([facility]) POCT URINALYSIS DIPSTICK Routine 11/28/2024 11:37 AM EDT Third trimester ([facility]) 36 weeks gestation of ([facility]) CULTURE, GROUP B STREP WITH SUSCEPTIBLITY Routine 11/21/2024 11:45 AM EDT Third trimester ([facility]) POCT URINALYSIS DIPSTICK Routine 11/21/2024 11:43 AM EDT Third trimester ([facility]) 35 weeks gestation of ([facility]) POCT URINALYSIS DIPSTICK Routine 2024 11:42 AM EDT Third trimester ([facility]) HEMOGLOBIN A1C Routine 10/23/2024 3:02 PM EDT CBC WITH AUTO DIFFERENTIAL Routine 10/23/2024 3:02 PM EDT POCT URINALYSIS DIPSTICK Routine 10/23/2024 12:07 PM EDT 31 weeks gestation of ([facility]) Third trimester ([facility]) US OB FOLLOW UP TRANSABDOMINAL APPROACH Routine 10/23/2024 11:55 AM EDT Excessive growth affecting management of , antepartum, single or unspecified fetus ([facility]) POCT URINALYSIS DIPSTICK Routine 10/09/2024 11:17 AM EDT Third trimester ([facility]) from Last 3 Months Results * (ABNORMAL) POCT urinalysis dipstick manually resulted (12/12/2024 1:57 PM EDT) Only the most recent of7 resultswithin the time period is included. Color, [...] TEST ENTER/EDIT OR DERABLES Final Result * CULTURE, GROUP B STREP WITH SUSCEPTIBLITY (11/21/2024 11:45 AM EDT) Swab 11/21/2024 11:4 5 AM EDT us Alexander Pa DO LAB BLOOD ORDERABLES Final Resul t EXTERNAL LAB * (ABNORMAL) CBC auto differential (10/23/2024 3:02 [...] a previously preliminary verified report. PERFORMED AT [facility] [address],[place] [address] 10/23/2024 3:02 PM EDT 10/23/2024 5:36 PM EDT us Alexander Pa DO LAB BLOOD ORDERABLES Final Resul t [facility] * Hemoglobin A1c (10/23/2024 3:02 PM [...] GLUCOSE 100 mg/dL [facility] Comment: PERFORMED AT [facility] [address],[place] [address] 10/23/2024 3:02 PM EDT 10/23/2024 5:36 PM EDT us Alexander Winn DO LAB BLOOD ORDERABLES Final Resul t [facility] * US OB follow up transabdominal [...] II, MD, PHD at 25-Oct-2024 08:49:34 AM [facility] Procedure Note Sandi Rodriguez MD - [...] signed by SANDI RODRIGUEZ II, MD, PHD [id number] 08:49:34 AM [facility] us Alexander Winn DO IMG OB US PROCEDURES Final Resul t from Last 3 Months Additional Health Concerns Active Problems Noted Date Diagnosed Date OB Reminders 05/01/[address] [place] [address] MEDICAID [place]
--- OUTSIDE RECORDS SUMMARY | 2024-12-14 04:57 | XMS_ITS | Encounter Summary ---
Author Organization [facility] Address [address] [place] [address] Care Team Providers Care Computer Hardware Technician Name Role Phone Unavailable Primary Care Provider Unavailabl e Encounter Details Date Type Department Care Team (Late st Contact Info) Description 08/08/2024 Abstract [facility] [address] [place] [id number] Alexander Winn, DO [address] [place] [address] Social History Tobacco Use Types Packs/Day Years [...]
[2024-12-14 05:39] LABS: Hematocrit 30.6 % (36.0-48.0); Hemoglobin 10.2 g/dL (12.0-16.0); Mean Corpuscular HGB Conc 33.3 g/dL (29.9-35.2); Mean Corpuscular Hemoglobin 27.0 pg (26.7-34.0); Mean Corpuscular Volume 81.0 fL (81.0-99.0); Platelet Count 258 10^3/uL (150-450); Red Blood Count 3.78 10^6/uL (4.20-5.40); White Blood Count 8.4 10^3/uL (4.0-11.0)
[2024-12-14 06:09] LABS: Cannabinoid Screen Urine NEGATIVE (NEGATIVE); Methamphetamines Screen Urine NEGATIVE (NEGATIVE); Tricyclic Antidepressant Urine NEGATIVE (NEGATIVE)
[2024-12-14] MEDS: 0.9 % SODIUM CHLORIDE 1,000 ML 125 ML IV ×2 (07:20→17:34)
[2024-12-14] MEDS: OXYTOCIN/0.9 % SODIUM CHLORIDE 10 UNITS/500 ML PLAST..BAG 6 UNIT IV (07:26)
[2024-12-14] MEDS: CEFAZOLIN SODIUM/DEXTROSE,ISO 2 GM/50 ML PIGGYBACK IV ×3 (07:37→19:32)
[2024-12-14] MEDS: 0.9 % SODIUM CHLORIDE 1,000 ML 1000 ML IV (11:04)
[2024-12-14] MEDS: ROPIVACAINE HCL/PF 400 MG/200 ML PREMIX 10 MG EPIDURAL (11:09)
[2024-12-14] MEDS: OXYTOCIN/0.9 % SODIUM CHLORIDE 20 UNITS/1,000 ML PLAST..BAG 125 UNIT IV (21:03)
--- NOTE | 2024-12-14 21:07 | PM.OBPRCVD ---
Procedure Intrapartal events: None Induction method: per pitocin protocol Delivery augmentation: rupture of membranes and pitocin Route of delivery: Episiotomy Description: none L&D Laceration Description: none Estimated blood loss (mL): 350 Anesthesia type: Epidural Infant Delivery date: 12/14/24 Gender: male presentation: vertex Placental delivery description: Spontaneous cord description: 3 Vessels
[2024-12-14] MEDS: IBUPROFEN 600 MG TABLET PO (23:32)
--- NOTE | 2024-12-15 00:53 | PM.OBPN ---
OB - PN: Subj Subjective Patient comments: no complaints and pain well controlled [place] status: doing well Exam Constitutional Vital Signs, click to edit/add: Last Vital Signs Temp 98.7 F 12/14/24 20:23 Pulse 92 H 12/14/24 23:22 Resp 18 12/14/24 20:23 BP 123/56 12/14/24 23:22 Documenting provider has reviewed patient's vital signs: yes Common normals: no apparent distress Respiratory Common normals: normal respiratory effort and clear to auscultation bilaterally Cardio Common normals: regular rate and regular rhythm GI Common normals: Normal to inspection, nondistended, normoactive bowel sounds present Extremity Common normals: no clubbing, cyanosis or edema and no calf tenderness Results Labs Labs: Short CBC 12/14/24 Range/Units 05:15 WBC 8.4 (4.0-11.0) 10^3/uL Hgb 10.2 L (12.0-16.0) g/dL Hct 30.6 L (36.0-48.0) % Plt Count 258 (150-450) 10^3/uL Urinary Catheter Management Urinary Catheter Management Urethral: Cath placed during this visit: yes Urethral indwelling: No Insertion date: 12/14/24 Insertion time: 11:51 OB - PN: A/P Plan - Vaginal Delivery day: 1 Plan: routine care Time Spent with Patient Time: Total time spent is greater than 50% in coordination of care (as documented) at patient's floor/unit and/or counseling patient: Total time spent with greater than 50% in coordination of care (as documented) at patient's floor/unit and/or counseling patient: less than 15 minutes
[2024-12-15 06:51] LABS: Hematocrit 29.5 % (36.0-48.0); Hemoglobin 9.7 g/dL (12.0-16.0); Mean Corpuscular HGB Conc 32.9 g/dL (29.9-35.2); Mean Corpuscular Hemoglobin 26.8 pg (26.7-34.0); Mean Corpuscular Volume 81.5 fL (81.0-99.0); Platelet Count 229 10^3/uL (150-450); Red Blood Count 3.62 10^6/uL (4.20-5.40); White Blood Count 15.6 10^3/uL (4.0-11.0)
[2024-12-15 07:34] LABS: Basophils Abs Manual 0.00 10^3/uL (0.00-0.10); Basophils Percent Manual 0.0 % (0.2-2.0); Eosinophils Absolute Manual 0.15 10^3/uL (0.00-0.70); Eosinophils Percent Manual 1.0 % (0.9-7.0); Lymphocytes Absolute Manual 1.40 10^3/uL (1.20-3.80); Lymphocytes Percent Manual 9.0 % (20.5-60.0); Monocytes Absolute Manual 1.24 10^3/uL (0.30-0.80); Monocytes Percent Manual 8.0 % (1.7-12.0); Segmented Neut Absolute Manual 12.79 10^3/uL (1.4-6.5); Segmented Neutrophils % Manual 82.0 (43.0-75.0)
[2024-12-15 08:00] VITALS: TEMP 37.2
[2024-12-15] MEDS: IBUPROFEN 600 MG TABLET PO ×2 (08:02→14:15)
[2024-12-15 08:04] VITALS: BP 113/72; PULSE 69
[2024-12-15] MEDS: DOCUSATE SODIUM 100 MG CAPSULE PO ×2 (10:08→21:38)
[2024-12-15 15:59] VITALS: BP 124/73; PULSE 74
[2024-12-15 16:00] VITALS: PULSE 78; TEMP 36.4
[2024-12-15 21:41] VITALS: BP 118/79; PULSE 72
[2024-12-15 22:00] VITALS: PULSE 72; TEMP 36.7
[2024-12-16] MEDS: IBUPROFEN 600 MG TABLET PO ×2 (04:32→12:30)
[2024-12-16 09:48] VITALS: BP 121/64; PULSE 81; TEMP 36.7
--- NOTE | 2024-12-16 11:09 | PM.OBPN ---
OB - PN: Subj Subjective Patient comments: no complaints [place] status: doing well feeding status: breast and bottle feeding Exam Constitutional Vital Signs, click to edit/add: Last Vital Signs Temp 98.1 F 12/16/24 09:48 Pulse 81 12/16/24 09:48 Resp 18 12/15/24 22:00 BP 121/64 12/16/24 09:48 O2 Del Method Room Air 12/15/24 22:00 Documenting provider has reviewed patient's vital signs: yes Common normals: no apparent distress Exam limitations: altered mental status General appearance: cooperative, comfortable and well kempt Orientation/consciousness: Yes awake, Yes oriented to person, Yes oriented to place and Yes oriented to time HENMT Common normals: normocephalic Face and sinus: normal facial exam Eye Common normals: EOMs intact bilaterally General eye: normal appearance of both eyes Neck & C-Spine Common normals: full ROM and no lymphadenopathy General: normal visual inspection Lymph Lymphatic: no lymphadenopathy noted Chest Common normals: inspection of chest normal Respiratory Common normals: normal respiratory effort Effort & inspection: able to speak in complete sentences Auscultation: clear to auscultation bilaterally Cardio Common normals: regular rate and regular rhythm Rate: regular rate Rhythm: regular rhythm GI Common normals: Normal to inspection, nondistended, normoactive bowel sounds present Inspection: normal to inspection Palpation: soft Common normals: no CVA tenderness Back & Pelvis Common normals: no CVA tenderness Thoracic spine/upper back: normal to inspection Extremity Common normals: normal to inspection General: normal exam except as noted Neuro Common normals: oriented x3 Sensorium/orientation: awake, alert, oriented to person, oriented to place and oriented to time Psych Common normals: mental status grossly normal, thought process normal, cooperative, affect normal, speech normal, activity/motor behavior normal, denies hallucinations, denies homicidal ideation and denies suicidal ideation Appearance: grossly normal Attitude: calm Speech: normal speech Thought process: normal thought process Urinary Catheter Management Urinary Catheter Management Urethral: Cath placed during this visit: yes Urethral indwelling: No Insertion date: 12/14/24 Insertion time: 11:51 OB - PN: A/P Plan - Vaginal Delivery day: 2 Plan: discharge home Time Spent with Patient Time: Total time spent is greater than 50% in coordination of care (as documented) at patient's floor/unit and/or counseling patient: Total time spent with greater than 50% in coordination of care (as documented) at patient's floor/unit and/or counseling patient: less than 15 minutes
== END 2024-12-16 14:00 | disposition home or self-care (01) | DRG 560 ==
PROVIDERS: Admitting Provider Obstetrics & Gynecology; Visit Provider Obstetrics & Gynecology
DX: O99.824 Streptococcus B carrier state complicating childbirth (principal); Z3A.39 39 weeks gestation of pregnancy; Z37.0 Single live birth
CPT/HCPCS: 36415; 80307; 85007; 85027; 86850; 86900; 86901; J0690; J2795